=== PATIENT | male | born 1940 | race Caucasian/White ===

== ENCOUNTER 2023-10-08 04:45 | Emergency (ER) | payer MEDICARE, BC, SELFPAY ==
[2023-10-08 04:52] VITALS: BP 160/80; PULSE 68; RESP 16; TEMP 36.7; O2SAT 98; BMI 27.5
[2023-10-08] MEDS: TRANEXAMIC ACID 100 MG/ML INJ 1000 MG TOPICAL (05:06)
[2023-10-08 05:22] LABS: Basophils Percent Auto 0.5 % (0.0-3.0); Eosinophils Percent Auto 5.7 % (0.0-7.0); Hematocrit 38.2 % (37.0-53.0); Hemoglobin* 12.4 gm/dL (13.5-17.5); Immature Granulocytes Pct Auto 0.5 %; Lymphocytes Percent Auto 18.8 % (20-44); Mean Corpuscular HGB Conc 33 gm/dL (32-36); Mean Corpuscular Hemoglobin 30 pg (26-34); Mean Corpuscular Volume 93 fL (80-100); Monocytes Percent Auto 13.2 % (0.0-11.0); Neutrophils Percent Auto 61.3 % (42.0-72.0); Platelet Count* 150 K/uL (140-440); RDW Coefficient of Variation % 13.6 % (11.5-15.5); White Blood Count* 4.41 K/uL (4.50-11.00)
[2023-10-08 05:23] LABS: Slide Review Reflex No
--- NOTE | 2023-10-08 05:25 | ED_ITS ---
HPI - General Adult General Chief complaint: Post Op Complication Stated complaint: Bleeding from mouth post tooth extraction Time Seen by Provider: 10/08/23 05:15 Source: patient and family Mode of arrival: ambulatory Limitations: no limitations History of Present Illness HPI narrative: 83-year-old male presents to the emergency department with his . He had dental extractions performed about 12 hours ago and had some mild oozing initially. Bleeding has increased over the last couple of hours. He reports he has had significant pain is a result of the extractions. He was given a few hydrocodone tablets. He took 1 at approximately 5:00 p.m. after the procedure was completed and the pain became more bothersome. They called the triage line for the oral surgeon and unfortunately did not get a call back. They were advised by a dentist friend to take for ibuprofen and 1 extra-strength Tylenol. They did and initially pain did not improve. He did take another hydrocodone about an hour prior to presentation and reports now that the pain is improving markedly. Their biggest concern is the persistent bleeding. He does have a history of low platelets in the past and a history of CML. His only home medication is the immune modulator for his CML. There have been no recent changes to this. His reports that his platelets had actually been doing better overall and were nearly normal on the last few draws but they have not had anything done recently. No fever, no new trauma, no syncope no breathing problems. No other concerns today. Past medical history most notable for the CML. Denies other acute issues today. ROS is negative for other areas of bleeding, generalized, hematologic, cardiac, skin or respiratory changes today. Related Data Allergies Allergy/AdvReac Type Severity Reaction Status Date / Time lisinopril Allergy Verified 10/08/23 04:57 [facility] Social History Non-prescribed substance use: denies use Exam Const: Vital Signs, click to edit/add: Vital Signs - 24 hr 10/08/23 04:52 Temperature 98.0 F Pulse Rate [Left P ulse Oximeter] 68 Respiratory Rate 16 Blood Pressure [Le ft Upper Arm] 160/80 H Pulse Oximetry 98 Oxygen Delivery Me thod Room Air Documenting provider has reviewed patient's vital signs: yes Other: This seemed have some very mild cognitive impairment, his answers questions for him. With direct questioning, he can follow instructions. HENMT: Common normals: normocephalic Head and scalp: normocephalic Other: Venous appearing bleeding from dental extractions of lower central incisor and canine area on left. Pressure is initially applied. Tongue appears normal, upper teeth appear intact. No signs of recent tongue biting. Posterior pharynx looks normal. Exterior ears and nose appear normal. Eye: Common normals: conjunctivae normal General eye: normal appearance of both eyes Conjunctiva: conjunctiva(e) normal Resp: Common normals: normal respiratory effort Effort & inspection: able to speak in complete sentences Neuro: Other: Observed normal gait ambulating to room 4, moves all extremities easily and symmetrically. Psych: Appearance: grossly normal Attitude: engaged Insight: fair Judgement: judgment good Skin: Common normals: no rashes or lesions noted Narrative: No petechiae, extensive bruising or others sequelae of hematological disorder. General skin exam: no rashes or lesions noted Course Course ED Course: Bleeding noted, persistent. I applied TXA soaked gauze to the wound and then a 2nd pressure gauze on top of this and advised him to bite down. I reinspected after about 3 minutes and see that the bleeding is starting to decrease. Will leave on for another 10 minutes and re-examine. CBC recommended due to his history of low platelets, drawn. Await findings and clinical response. Reevaluation(s) Time of Reevaluation #1: 05:43 Reevaluation #1: Bleeding controlled, gauze removed and monitored. If no repeat bleeding in the next 20 minutes, will discharge with plan of full liquids for the next 12 hours then advancing to very soft foods for 48 hours. Continue with plan for ibuprofen, Tylenol and hydrocodone previously given. CBC reviewed, very reassuring. Results discussed with family and plan of care. They verbalized understanding and agreement Time of Reevaluation #2: 05:59 Reevaluation #2: Update, recheck shows no return of bleeding. Patient will be discharged Vital Signs Vital signs: Initial Vital Signs Temperature 98.0 F 10/08/23 04:52 Temperature Source Temporal Artery Scan 10/08/23 04:52 Pulse Rate 68 10/08/23 04:52 Pulse Rhythm Regular 10/08/23 04:52 Respiratory Rate 16 10/08/23 04:52 Blood Pressure 160/80 H 10/08/23 04:52 Blood Pressure Mean 106 H 10/08/23 04:52 Blood Pressure Position Sitting 10/08/23 04:52 Pulse Oximetry 98 10/08/23 04:52 Oxygen Delivery Method Room Air 10/08/23 04:52 Vital Signs Temperature 98.0 F 10/08/23 04:52 Pulse Rate 68 10/08/23 04:52 Respiratory Rate 16 10/08/23 04:52 Blood Pressure 160/80 H 10/08/23 04:52 Pulse Oximetry 98 10/08/23 04:52 Oxygen Delivery Method Room Air 10/08/23 04:52 Temperature 98.0 F 10/08/23 04:52 Pulse Rate 68 10/08/23 04:52 Respiratory Rate 16 10/08/23 04:52 Blood Pressure 160/80 H 10/08/23 04:52 Pulse Oximetry 98 10/08/23 04:52 Oxygen Delivery Method Room Air 10/08/23 04:52 Medications Administered Medications: Discontinued Medications Generic Name Dose Route Start Last Admin Trade Name Chloe PRN Reason Stop Dose Admin Tranexamic Acid 1,000 mg 10/08/23 04:59 10/08/23 05:06 Tranexamic Acid 100 Mg/Ml Inj TOPICAL 10/08/23 05:00 1,000 mg ONCE ONE Administration Medical Decision Making Lab Data Lab results reviewed: Yes I reviewed the patient's lab results Lab results narrative: Platelets normal. Hemoglobin 12., reassuring. Labs: Lab Results 10/08/23 Range/Units 05:15 WBC 4.41 L (4.50-11.00) K/uL RBC 4.10 L (4.30-5.90) m/uL Hgb 12.4 L (13.5-17.5) gm/dL Hct 38.2 (37.0-53.0) % MCV 93 (80-100) fL MCH 30 (26-34) pg MCHC 33 (32-36) gm/dL RDW Coeff of Romero 13.6 (11.5-15.5) % Plt Count 150 (140-440) K/uL Neut % (Auto) 61.3 (42.0-72.0) % Lymph % (Auto) 18.8 L (20-44) % [place] % (Auto) 13.2 H (0.0-11.0) % Eos % (Auto) 5.7 (0.0-7.0) % Baso % (Auto) 0.5 (0.0-3.0) % Neut # (Auto) 2.70 (1.7-7.0) K/uL Lymph # (Auto) 0.80 L (0.90-2.90) K/uL [place] # (Auto) 0.60 (0.00-0.90) K/UL Eos # (Auto) 0.30 (0.00-0.50) K/uL Baso # (Auto) 0.00 (0.00-0.30) K/uL Abs Immat Gran (auto) 0.00 (0.00-0.30) K/uL Imm/Tot Granulo (auto) 0.5 % Discharge Plan Discharge Clinical Impression: Post-operative hemorrhage Patient Disposition: Home w/ Parent or Adult Condition: Improved Instructions: Dental Laceration (ED) Additional Instructions: I am thankful that the TXA was helpful at controlling your bleeding. Remember not to aggressively spit, the area or attempt to loosen the newly formed blood clot with your tongue. If there is a significant restart of bleeding, roll up the gauze as I had demonstrated and put this over the bleeding area and bite down again with your top teeth. Leave this in place for at least 20 minutes prior to removing. If this does not stop the bleeding or if the bleeding is very severe, please come back to the emergency department. Continue with the ibuprofen, Tylenol and hydrocodone that you were given from your oral surgeon. I would like you to drink liquids only for the next 8 hours, then you may advance to very soft foods for the next 48 hours. Update your oral surgeon if you continue to have bleeding or pain issues. Your blood counts look good today with a hemoglobin of 12.4 and a platelet count of 150. Activity Level: Activity as Tolerated Discharge Diet: Regular Follow Up/Referrals: Provider,Not a Local [Primary Care Provider] - Stand Alone Forms: MyHealth Info Instructions
--- OUTSIDE RECORDS SUMMARY | 2023-10-08 05:30 | XMS_ITS | Encounter Summary ---
Author Name [facility] Organization [facility] Address [address] [place] [address] Care Team Providers Care Belt Maker Helper Name Role Phone KYLEIGH VERDUGO Primary Care Provider Unavailabl e Insurance Providers: All historical and current Section Date Range: From patient's date of to the date document was created. This section includes the names of all active insurance providers for the patient. Insurance Provider Type of Coverage Plan Name Start of Policy Coverage End of Policy Coverage Group Number Member ID Insurance Provider's Telephone Number Policy Bejarano's Name Patient's Relationship to Policy Bejarano [facility] (WNR) MEDICARE (M) BLUE EDICA RE VALUE P Apr 14, 2009 [id number] OSORIO POLLACK PATIENT [facility] (WNR) MEDICARE ADVANTAGE [facility] (WNR) Apr 14, 2009 DO NOT BILL [id number] [facility] OSORIO POLLACK PATIENT [facility] (WNR) MEDICARE ADVANTAGE [facility] (WNR) Apr 14, 2016 [id number] [phone] OSORIO POLLACK PATIENT MEDICARE PART D (WNR) MEDICARE (M) PART D Apr 14, 2021 PART D [id number] [facility] OSORIO POLLACK PATIENT Selected Encounter This section includes the information on record at [place] for the Encounter. Date/Time Encounter Type Encounter Description Reason Pro vider Source Jan 07, 2023 03:53 PM CASE MANAGEMENT ADMIN PAT ACTIVTIES (MASNONCT) ELSA TRAORE Encounter Template Text not used by [place] Plan of Treatment: Future Appointments (+ 6 months) and Future Tests (+/- 45 days) The Plan of Treatment section includes future care activities for the patient from all [place] treatmentfacilities. This section includes future appointments and future orders which are active, pending or scheduled. Future Appointments This section includes appointments that were scheduled to occur 6 months from the date of the Encounter, up to a maximum of 20 appointments. The data comes from all [place] treatment facilities. Appointment Date/Time Appointment Type Appointme nt Facility Name Feb 17, 2023 09:30 AM [facility] Mar 19, 2023 09:20 AM AMBUL[facility]ORY - SURGERY [facility] Apr 21, 2023 12:15 PM [facility] Apr 21, 2023 01:00 PM AMBULATORY - SURGERY [facility] Apr 25, 2023 01:00 PM [facility] - [facility] May 02, 2023 02:00 PM [facility]ORY - MEDICINE [facility] May 06, 2023 10:15 AM [facility] Lab Results: +/- 30 days of the encounter This section includes the Chemistry and Hematology Lab Results on record with [place] for the patient. Radiology Reports and Pathology Reports are provided separately, in subsequent sections. Lab Results This section contains the Chemistry/Hematology Results that were resulted 30 days before or 30 daysafter the date of the Encounter. Date/Time Source Result Type Result - Unit Interpretation Reference Range Comment Dec 31, 2022 10:00 AM [facility] BCR-ABL1 MAJOR QT PCR Specimen Type: BLOOD Comment: Automated Differential Performed Ordering Provider: SAMAN DEMPSEY Report Released Date/Time: September 06, 2022 11:18 AM Reporting Lab: [facility] [id number] Performing Lab: [facility] [id number] BCR-ABL1 MAJOR QT 0.0 <0 BCR-ABL1 INTERP BCR-ABL1 major fusion transcript NOT DETECTED Dec 31, 2022 10:00 AM [facility] HEMOGLOBIN A1C Specimen Type: BLOOD Comment: Values obtained from A1C measurements can vary. For typical A1C assays, a reported value of 7.0 could actually be between 6.7 and 7.3 if measured by a reference method. A reported value of 9.0 could actually be between 8.7 and 9.3. Ref: http://www.ng sp.org/CAPdat a.asp Ordering Provider: NILA CHRISTIAN Report Released Date/Time: Oct 03, 2022 03:42 PM Reporting Lab: [facility] [id number] Performing Lab: [facility] [id number] HEMOGLOBIN A1C 5.4 4.0-6.0 Dec 31, 2022 10:00 AM [facility] COMPREHENSIVE METABOLIC PANEL+MG Specimen Type: PLASMA Comment: Automated Differential Performed Ordering Provider: SAMAN DEMPSEY Report Released Date/Time: September 06, 2022 11:18 AM Reporting Lab: [facility] [id number] Performing Lab: [facility] [id number] CREATININE 1.1 mg/dL 0.7-1.2 UREA NITROGEN 21 mg/dL 8-26 GLUCOSE 108 mg/dL H 70-100 SODIUM 143 mmol/L 136-145 POTASSIUM 4.0 mmol/L 3.5-5.1 CHLORIDE 108 mmol/L H 98-107 CO2 27 mmol/L 22-29 CALCIUM 9.4 mg/dL 8.4-10.2 PROTEIN,TOTAL 7.3 g/dL 6.0-8.3 ALBUMIN 4.3 g/dL 3.5-5.2 BILIRUBIN, TOTAL 0.6 mg/dL 0.2-1.2 MAGNESIUM 2.0 mg/dL 1.6-2.6 ANION GAP 8 mmol/L 5-15 ALKALINE PHOSPHATASE 72 U/L 40-150 ALT/SGPT 9 U/L <55 AST/SGOT 20 U/L <34 .CREAT EGFR(CKD-EPI) 67 >60 Dec 31, 2022 10:00 AM [facility] CBC & DIFF Specimen Type: BLOOD Comment: Automated Differential Performed Ordering Provider: SAMAN DEMPSEY Report Released Date/Time: September 06, 2022 11:18 AM Reporting Lab: [facility] [id number] Performing Lab: [facility] [id number] WBC 4.59 10*3/uL 4.0-11.0 RBC 4.23 10*6/uL L 4.6-6.2 HGB 13.1 g/dL L 13.5-17.9 HCT 39.7 L 41-54 MCV 93.9 fL 80-100 MCH 31.0 pg 27-33 MCHC 33.0 g/dL 32.0-37.5 PLT 157 10*3/uL 150-400 MPV 9.1 fL 7.4-10.4 NEUT 54.5 40.0-80.0 LYMPHS 30.1 15.0-45.0 MONO 11.3 2.0-12.0 EOSINO 2.8 0.0-6.0 BASO 0.9 0.0-2.0 RDW 14.5 11.5-14.5 ABS LYMPH 1.38 10*3/uL 1.0-4.0 ABS MONO 0.52 10*3/uL 0.1-1.0 ABS NEUT 2.50 10*3/uL 2.0-7.7 ABS EOS 0.13 10*3/uL 0-0.5 ABS BASO 0.04 10*3/uL 0-0.2 IG(META,MYELO,P RO) 0.4 ABS IMMATURE GRAN 0.02 10*3/uL 0-0.1 Encounter Notes: All associated encounter notes This section contains the clinical notes associated to the Encounter. Date/Time Encounter Note(s) Provider Source Jan 07, 2023 03:55 PM PRIMARY CARE NOTE: LOCAL TITLE: TRAVELING CARE COORDINATION (TVC) NOTE STANDARD TITLE: PRIMARY CARE NOTE DATE OF NOTE: JAN 07, 2023@15:55 ENTRY DATE: JAN 07, 2023@15:55:43 AUTHOR: ELSA TRAORE EXP COSIGNER: URGENCY: STATUS: COMPLETED New TVC Consult for the following requested lab(s) on 03/24/23 now received: 1. CBC W/diff 2. CMP 3. BCR/ABL Gene rearrangement qnt Called [place] to confirm diagnostic testing while in [place]. [place] will report in person to the [facility] (location known to [place]) ON 03/24/23 to have ordered testing completed. Patient affirms understanding of above details and agrees to follow up with clinic accordingly. Also provided this TVC's contact information for any questions/concerns that should arise while patient is residing in [place]. /anoop/ ISAAC VU,RN-BC REGISTERED NURSE Signed: 01/07/2023 15:59 [address] [facility]
--- OUTSIDE RECORDS SUMMARY | 2023-10-08 05:30 | XMS_ITS | Encounter Summary ---
Author Name [facility] of [facility] Organization [facility] Address [address] [place] [address] Care Team Providers Care Return To Service Inspector Name Role Phone KYLEIGH VERDUGO Primary Care [...] Bejarano's Name Patient's Relationship to Policy Bejarano [facility] (WNR) MEDICARE (M) BLUE EDICA RE VALUE P Apr 14, 2009 [id number] [phone] OSORIO POLLACK PATIENT [facility] (WNR) MEDICARE ADVANTAGE [facility] (WNR) Apr 14, 2009 DO NOT BILL [id number] [facility] OSORIO POLLACK PATIENT [facility] (WNR) MEDICARE ADVANTAGE [facility] (WNR) Apr 14, 2016 [id number] [phone] OSORIO POLLACK PATIENT MEDICARE PART D (WNR) MEDICARE (M) PART D Apr 14, 2021 PART D [id number] [facility] OSORIO POLLACK PATIENT Selected Encounter This section includes the information on record at [place] for the Encounter. Date/Time Encounter Type Encounter Description Reason Provider Source Jan 30, 2023 04:57 PM TARGETED CASE MANAGEMENT ADMIN PAT ACTIVTIES (MASNONCT) JENNY RAYA [facility] Encounter Template Text not used by [place] Plan of Treatment: Future Appointments (+ 6 months) and Future Tests (+/- 45 days) The Plan of Treatment section includes future care activities for the patient from all [place] treatmentfacilities. This section includes future appointments and future orders which are active, pending or scheduled. Future Appointments This section includes appointments that were scheduled to occur 6 months from the date of the Encounter, up to a maximum of 20 appointments. The data comes from all [place] treatment facilities. Appointment Date/Time Appointment Type Appointme nt Facility Name Feb 17, 2023 09:30 AM [facility] Mar 19, 2023 09:20 AM [facility] Apr 21, 2023 12:15 PM [facility] Apr 21, 2023 01:00 PM [facility] Apr 25, 2023 01:00 PM AMBULATORY - RE[facility]AB [facility] [place] [facility] May 02, 2023 02:00 PM [facility] May 06, 2023 10:15 AM [facility] Encounter Notes: All associated encounter notes This section contains the clinical notes associated to the Encounter. Date/Time Encounter Note(s) Provider Source Jan 30, 2023 04:57 PM CONSULT: LOCAL TITLE: TRAVELING CARE COORDINATION (TVC) CONSULT STANDARD TITLE: CONSULT DATE OF NOTE: JAN 30, 2023@16:57 ENTRY DATE: JAN 30, 2023@16:57:42 AUTHOR: JENNY RAYA EXP COSIGNER: URGENCY: STATUS: COMPLETED TVCC Update Lab orders entered Lab Test: CBC CMP BCR/ ABL Gene rearrangment qnt Collection Date/Time: 03/24/23 notified on: 01/07/23 Results will be alerted on this consult when available. Preferred [place] Provider to manage results. [facility] care coordination completed /anoop/ JENNY RAYA,MSN,RN REGISTERED NURSE Signed: 01/30/2023 16:59 JENNY RAYA [facility]
--- OUTSIDE RECORDS SUMMARY | 2023-10-08 05:30 | XMS_ITS ---
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) Apr 14, 2009 DO NOT BILL [id number] [facility] [phone] OSORIO POLLACK PATIENT [facility] (WNR) MEDICARE ADVANTAGE [facility] (WN) Apr 14, 2016 [id number] [phone] OSORIO POLLACK PATIENT MEDICARE PART D (WN) MEDICARE (M) PART D Apr 14, 2021 PART D [id number] OSORIO POLLACK PATIENT Selected Encounter This section includes the information on record at MD for the Encounter. Date/Time Encounter Type Encounter Description Reason Provider Source Oct 16, 2022 01:00 PM OFFICE O/P NEW LOW 30-44 MIN OPTOMETRY ICD-10-CM 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, right eye, with inact chrdl neovas ANTON,PATRICI A M IHE Encounter Template Text not used by [facility] Assessments - Encounter Diagnoses This section includes the primary and secondary diagnoses documented for the Encounter. Date/Time Primary/Secondary Diagnosis Diagnosis Name Provider Source Oct 16, 2022 04:07 PM PRIMARY Exdtve age-rel mclr degn, right eye, with inact chrdl neovas ANTON,CATIE IA M [facility] Oct 16, 2022 04:07 PM SECONDARY Combined forms of age-related cataract, bilateral ANTON,CATIE IA [facility] Oct 16, 2022 04:07 PM SECONDARY Nexdtve age-related mclr degn, left eye, early dry stage ANTON,CATIE IA [facility] Oct 16, 2022 04:07 PM SECONDARY Presbyopia ANTON,CATIE IA [facility] Oct 16, 2022 04:07 PM SECONDARY Vitreous degeneration, bilateral ANTON,CATIE IA [facility] Plan of Treatment: Future Appointments (+ 6 months) and Future Tests (+/- 45 days) The Plan of Treatment section includes future care activities for the patient from all MD treatmentfacilities. This section includes future appointments and future orders which are active, pending or scheduled. Future Appointments This section includes appointments that were scheduled to occur 6 months from the date of the Encounter, up to a maximum of 20 appointments. The data comes from all MD treatment facilities. Appointment Date/Time Appointment Type Appointme nt Facility Name Nov 05, 2022 10:30 AM AMBULATORY - MEDICINE [facility] Nov 22, 2022 12:30 PM AMBULATORY - SURGERY [facility] Nov 26, 2022 12:30 PM AMBULATORY - SURGERY [facility] Dec 11, 2022 10:00 AM [facility] Dec 31, 2022 10:00 AM [facility] Jan 07, 2023 01:00 PM AMBULATORY - MEDICINE [facility] Feb 17, 2023 09:30 AM AMBULATORY - MEDICINE [facility] Mar 19, 2023 09:20 AM AMBULATORY - SURGERY [facility] Active, Pending, and Scheduled Orders This section includes a listing of several types of active, pending, and scheduled orders, including clinic medications orders, diagnostic test orders, procedure orders and consult orders; where the start date of the order is 45 days before the date of the Encounter or 45 days after the date of theEncounter. The data comes from all [facility] facilities. Test Date/Time Test Type Test Details Facility Name Sep 27, 2022 12:00 AM Laboratory - Chemi stry Order TSH W/REFLEX TO FREE T4 PLASMA [facility] Sep 27, 2022 12:00 AM Laboratory - Chemi stry Order LIPID PANEL,NON-FASTING PLASMA [facility] Sep 27, 2022 12:00 AM Laboratory - Chemi stry Order CBC BLOOD [facility] Sep 27, 2022 12:00 AM Laboratory - Chemi stry Order CREATININE(INCLUDES EGFR) PLASMA [facility] Sep 27, 2022 12:00 AM Laboratory - Chemi stry Order ELECTROLYTES/ANION GAP PLASMA [facility] Sep 27, 2022 12:00 AM Laboratory - Chemi stry Order GLUCOSE PLASMA [facility] Sep 27, 2022 12:00 AM Laboratory - Chemi stry Order HEMOGLOBIN A1C BLOOD [facility] Sep 27, 2022 12:00 AM Laboratory - Chemi stry Order ALT/SGPT [facility]AS[facility] Sep 27, 2022 12:00 AM Laboratory - Chemi stry Order AST/SGOT [facility]AS[facility] Encounter Notes: All associated encounter notes This section contains the clinical notes associated to the Encounter. Date/Time Encounter Note(s) Provider Source Oct 16, 2022 01:56 PM OPHTHALMOLOGY TECH NICIAN NOTE: LOCAL TITLE: CADD DRAFTER NOTE STANDARD TITLE: CADD DRAFTER NOTE DATE OF NOTE: OCT 16, 2022@13:56 ENTRY DATE: OCT 16, 2022@13:56:14 AUTHOR: ISABEL CHEN EXP COSIGNER: URGENCY: STATUS: COMPLETED RNFL oct done and up-loaded for review /es/ ISABEL CHEN OPHTHALMOLOGY [facility] [employer] Signed: 10/16/2022 13:56 ISABEL CHEN [facility] Oct 16, 2022 12:37 PM OPHTHALMOLOGY TECH NICIAN NOTE: LOCAL TITLE: CADD DRAFTER NOTE STANDARD TITLE: CADD DRAFTER NOTE DATE OF NOTE: OCT 16, 2022@12:37 ENTRY DATE: OCT 16, 2022@12:37:31 AUTHOR: ISABEL CHEN EXP COSIGNER: URGENCY: STATUS: COMPLETED Eye Start Exam Patient: OSORIO POLLACK Sex: MALE SSN: [id number] Birthdate: [birth year] Chief complaint: patient states here for my exam and to check if I need a glasses prescription History of Present Illness: Location: Intensity: Duration: Active problems - Computerized Problem List is the source for the followin. History of immune thrombocytopenia (SNOMED CT 710955078) 2. Type 2 diabetes mellitus 3. Skin cancer (SNOMED CT 373427902) - H/O SCCA in 2010. 4. Hearing loss (SNOMED CT 69084415) 5. Osteoarthritis - S/P left knee arthroscopy in 1994. - S/P right shoulder decompression in 2002. 6. Trigger finger (acquired) 7. Benign prostatic hypertrophy with outflow obstruction 8. Chronic myeloid leukemia (SNOMED CT 49123717) 9. Chronic low back pain 10. Hyperlipidemia 11. Solitary nodule of lung 12. Insomnia 13. ECG: ventricular ectopics 14. Proteinuria 15. Inguinal hernia 16. Monoclonal paraproteinemia 17. Pain of bilateral knee regions Surgeries: DEC 25, 2018 Proc: Laparoscopic Left inguinal hernia repair Full Exam Eye Medications Patient denies eye medication use. Allergies: FLUCONAZOLE (August 29, 2016) LISINOPRIL (Nov 30, 2018) No new Allergies. Past Medical History: Cancer Past eye history: Macular degeneration: Past eye surgeries: Denies all Social History: Alcohol use - Yes Tobacco use - No Family History: Eye disease: mom mac degen Cancer Heart disease or stroke: Last refraction: Vision: OD:SC(without glasses) OD: 20/125 Pinhole: 20/NI Near: 20/ Vision: OS:CC(with glasses) 0S: 20/30 Pinhole: 20/25+3 Near: 20/ whears +3.25 cheaters Current glasses: OD: X Prism: OS: X Prism: Add: Confrontational Ibrahim: Full to finger counting: Right: Yes Left: Yes Extra Ocular Movement: Normal Pupils: Right: Round Left: Round Size: Right: 3 Left: 3 React to light: Right: Yes Left: Yes Afferent pupil defect: Right:No Grade: Left: No Grade: Note: Intra-ocular pressure (IOP): OD: 15 OS: 13 iCare Dilation: mydriacyl 1% and neosynephrine OU Oct@12:53 /anoop/ ISABEL CHEN OPHTHALMOLOGY HEALTH HANDIC[facility] [employer] [facility] Signed: 10/16/2022 12:54 ISABEL CHEN [facility] Oct 16, 2022 07:47 AM OPTOMETRY NOTE: LOCAL TITLE: OPTOMETRY CLINIC NOTE STANDARD TITLE: OPTOMETRY NOTE DATE OF NOTE: OCT 16, 2022@07:47 ENTRY DATE: OCT 16, 2022@07:47:27 AUTHOR: RAMONA ANTON COSIGNER: URGENCY: STATUS: COMPLETED Reviewed and agree with tech notes, add: Chief complaint: patient states here for my exam and to check if I need a glasses prescription Patient sees [facility] Specialist in [place], [place]: saw him ~ 1 month ago: had anti-Vegf injection OD per patient at that visit. Also sees a Retina Specialist when he is living in [place]. Patient takes AREDS 2 eye vitamins. Patient knows that he has a cataract OD > OS. HPI:mild blur at distance and at near OU, gradual Patient denies any sudden loss of vision, dimming or blackout of vision, blindness. Patient denies any pain, double vision. Patient denies any floaters, flashing lights, curtain or veil over vision, shadows in vision. Patient denies any redness, pain, discharge. Eye meds: see tech note. PATTIE:02/2019 POHx: see tech note. PMHx: see tech note. Last Hgb A1C: 5.5% Pt oriented and alert x 3 Mood and affect normal Cover test cc distance: ortho OU. Manifest Refraction/Final Srx: OD:planon DS 20/125-1 OS:plano -[id number] 20/25+2 no prism ADD: +3.00 IOP: 15 OD, 13 OS per tech (Icare) Diagnostic meds: per tech. BIOMICROSCOPY: (OU unless specified) Adnexa/Orbit- clear Eyelids/Lashes- clear Conjuctiva- clear Sclera- white and quiet Cornea- all layers clear Angle- 4VH AC- D and Q Iris- clear, (-) rubeosis Lens- 2+ NS OU with 2.5+ PSC OD. Dilated eye exam: yes OPHTHALMOSCOPY (OU unless specified) Cup/Disc- OD: 0.4/0.4 (H/V), OS: 0.4/0.4 (H/V) Neuroretinal rim tissue distinct and well perfused OU. OU: no pallor, no notch, no edema, no DH, no NVD. Color- no pallor Margins- distinct Vessels- normal caliber; OU: no emboli, no plaque, no occlusion, no retinopathy, no NVE, no VB. Macula- OD: large area of GA with fibrosis with IRF cysts. No new SRNVM, no SRF. OS: flat, few small drusen. OU: no hemes, no exudate, no CWS. Vitreous- PVD OU. ; OU: no VH, no vitreous cell, no vitreous pigment. Periphery- clear flat and intact 360 degrees; OU: no RT/ no RD, no masses, no retinal break, no retinopathy, (-) hemes. Additional testing today: ===== Mac OCT OD: Large area of GA with fibrosis with few small IRF cysts without new SRNVM. No SRF. OS: Rare RPE migration with rare drusenoid. no SRNVM, no IRF, no SRF. Normal fovea contour. ==== Impression/Plan: 1. 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 PER PATIENT, HE IS FOLLOWED FOR THIS WITH A RETINA SPECIALIST IN [place], [place]: LAST SAW HIM ~1 MONTH AGO FOR ANTI-VEGF INJECTION. WILL FOLLOW UP WITH HIM AGAIN IN A COUPLE OF MONTHS. ALSO SEES A RETINA SPECIALIST WHEN HE IS IN [place]. HE IS CURRENTLY TAKING AREDS 2 PRESERVISION EYE SUPPLEMENT. CONTIINUE CARE SCHEDULED WITH RETINA SPECIALISTS IN [place], [place] AND [place], SOONER IF ANY VISION CHANGES. CONTINUE DIET RICH IN GREEN LEAFY VEGGIES AND SOURCES OF OMEGA 3'S, SUNGLASS PROTECTION, NO SMOKING, WEIGHT CONTROL, BP CONTROL. CONTINUE HAG PREVIOUSLY RECOMMENDED BY HIS RETINA SPECIALIST(S). Previous plan from 2019: - New diagnosis WET OD (01/22/2019) - Per patient, followed at [facility] Dr. Agustin, no mention of AMD on prior visits and yearly OCT - Non smoker - Initial presentation: [facility] 20/100, OCT 01/22/2019 with significant SRF and moderate serous PED, several drusenoid PED OD. 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 Dry AMD OS - Exam, few small drusen superiorly - OCT no IRF/SRF, few drusenoid. CONTINUE PLAN ABOVE. 3. Combined cataract OD, NS OS, mildly visually significant OU. Discussed guarded prognosis of improving vision with cataract removal OD due to #1 above: patient opts to monitor for now OU. 4. Refractive error with Presbypopia OU. Released updated glasses Rx today: polycarb, FTW recommended due to #1. Monitor yearly with VTDMRx, sooner if any changes. 5. PVD OU Discussed risk of RT/RD and symptoms of RT/RD: RTC immediately if any loss of vision shadows in vision, floaters, flashing lights, curtain or viel over vision. Monitor yearly with VTDMRx, sooner if any changes. Reviewed exam findings OU including PLAN with patient. Educated patient about PLAN including symptoms of RT/ RD: RTC immediately if any loss of vision, shadows in vision, floaters, flashing lights, curtain or veil over vision and/or any other changes with either and/or both eyes. RTC: as scheduled with Retina Specialist in [place], [place] and in [place] when living there. RTC : 1 year for VTDMRx, sooner if any changes. Is the patient legally blind? 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
--- OUTSIDE RECORDS SUMMARY | 2023-10-08 05:30 | XMS_ITS | Encounter Summary ---
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 (R) MEDICARE (M) BLUE EDICA RE VALUE P Apr 14, 2009 [id number] [phone] [facility] (WNR) MEDICARE ADVANTAGE [facility] ([facility]) Apr 14, 2009 DO NOT BILL [id number] [facility] OSORIO POLLACK PATIENT [facility] (WNR) MEDICARE ADVANTAGE [facility] (WN) Apr 14, 2016 [id number] [phone] OSORIO POLLACK PATIENT MEDICARE PART D (WN) MEDICARE (M) PART D Apr 14, 2021 PART D [id number] [facility] OSORIO POLLACK PATIENT Selected Encounter This section includes the information on record at [facility] for the Encounter. Date/Time Encounter Type Encounter Description Reason Provider Source Jan 07, 2023 01:00 PM OFFICE O/P EST MOD 30-39 MIN ONCOLOGY/TUMOR ICD-10-CM 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, BCR/ABL-positi ve, not achieve SHAYLEE Mccormick IHTrevon Encounter Template Text not used by [facility] Assessments - Encounter Diagnoses This section includes the primary and secondary diagnoses documented for the Encounter. Date/Time Primary/Secondary Diagnosis Diagnosis Name Provider Source Jan 07, 2023 01:42 PM PRIMARY Chronic myeloid leuk, BCR/ABL-positiv e, not achieve SHAYLEE Mccormick [facility] Plan of Treatment: Future Appointments (+ 6 months) and Future Tests (+/- 45 days) The Plan of Treatment section includes future care activities for the patient from all [facility] treatmentfacilities. This section includes future appointments and future orders which are active, pending or scheduled. Future Appointments This section includes appointments that were scheduled to occur 6 months from the date of the Encounter, up to a maximum of 20 appointments. The data comes from all [facility] treatment facilities. Appointment Date/Time Appointment Type Appointme nt Facility Name Feb 17, 2023 09:30 AM AMBULATORY - MEDICINE [facility] Mar 19, 2023 09:20 AM AMBULATORY - SURGERY [facility] Apr 21, 2023 12:15 PM AMBULATORY - MEDICINE [facility] Apr 21, 2023 01:00 PM AMBULATORY - SURGERY [facility] Apr 25, 2023 01:00 PM AMBULATORY - REHAB MEDICIN [facility] May 02, 2023 02:00 PM AMBULATORY - MEDICINE [facility] May 06, 2023 10:15 AM AMBULATORY - MEDICINE [facility] Lab Results: +/- 30 days of the encounter This section includes the Chemistry and Hematology Lab Results on record with [facility] for the patient. Radiology Reports and Pathology Reports are provided separately, in subsequent sections. Lab Results This section contains the Chemistry/Hematology Results that were resulted 30 days before or 30 daysafter the date of the Encounter. Date/Time Source Result Type Result - Unit Interpretation Reference Range Comment Dec 31, 2022 10:00 AM [facility] BCR-ABL1 MAJOR QT PCR Specimen Type: BLOOD Comment: Automated Differential Performed Ordering Provider: SHAYLEE MATT Report Released Date/Time: September 06, 2022 11:18 AM Reporting Lab: [facility] [id number] Performing Lab: [facility] [id number] BCR-ABL1 MAJOR QT 0.0 <0 BCR-ABL1 INTERP BCR-ABL1 major fusion transcript NOT DETECTED Dec 31, 2022 10:00 AM [facility] HEMOGLOBIN A1C Specimen Type: BLOOD [...] Oct 03, 2022 03:42 PM Reporting Lab: [facility] [id number] Performing Lab: [facility] [id number] HEMOGLOBIN A1C 5.4 4.0-6.0 Dec 31, 2022 10:00 AM [facility] COMPREHENSIVE METABOLIC PANEL+MG Specimen Type: PLASMA Comment: Automated Differential Performed Ordering Provider: SHAYLEE MATT Report Released Date/Time: September 06, 2022 11:18 AM Reporting Lab: [facility] [id number] Performing Lab: [facility] [id number] CREATININE 1.1 mg/dL 0.7-1.2 UREA NITROGEN 21 [...] 67 >60 Dec 31, 2022 10:00 AM [facility] CBC & DIFF Specimen Type: BLOOD Comment: Automated Differential Performed Ordering Provider: SHAYLEE MATT Report Released Date/Time: September 06, 2022 11:18 AM Reporting Lab: [facility] [id number] Performing Lab: [facility] [id number] WBC 4.59 10*3/uL 4.0-11.0 RBC 4.23 10*6/uL [...] 0.4 ABS IMMATURE GRAN 0.02 10*3/uL 0-0.1 Vital Signs: All taken on the encounter date This section contains inpatient and outpatient Vital Signs collected on the date of the Encounter. Date/Time Temperature Pulse Blood Pressure Respiratory Rate SP02 Pain Height Weight Body Mass Index Source Jan 07, 2023 01:05 PM 98.2 F 50 /min 164/81 mm[Hg] 16 /min 98 % 0 213.1 lb 28 [facility] Social History: Smoking Status (Most current) and Tobacco Use (All prior to encounter date) This section includes the most current, and the historical, smoking and tobacco- related health factors from the [facility] the [facility]. Current Smoking Status This section includes the most current smoking, or tobacco-related health factor, from the [facility] where the Encounter took place. Date/Time Current Smoking Status Comment Facil ity Oct 03, 2022 09:00 AM VA-TOBACCO FORMER USER [facility] Tobacco Use History This section includes a history of the smoking, or tobacco-related health factors, that were collected on or before the date of the Encounter. The data comes from the [facility] where the Encounter took place. Date/Time Smoking Status/Tobacco Use Comment F acility Oct 03, 2022 09:00 AM VA-TOBACCO QUIT 15 YRS OR MORE [facility] Sep 27, 2021 02:30 PM VA-TOBACCO FORMER USER [facility] Sep 27, 2021 02:30 PM VA-TOBACCO QUIT 15 YRS OR MORE [facility] Dec 09, 2019 12:30 PM VA-TOBACCO FORMER USER [facility] Dec 09, 2019 12:30 PM VA-TOBACCO QUIT 15 YRS OR MORE [facility] Oct 06, 2018 02:12 PM VA-TOBACCO FORMER USER [facility] Oct 06, 2018 02:12 PM VA-TOBACCO QUIT 15 YRS OR MORE [facility] Sep 17, 2017 02:55 PM FORMER TOBACCO USER 7Y OR GREATE R [facility] August 29, 2016 01:07 PM FORMER TOBACCO USER 7Y OR GREATE R [facility] Nov 06, 2015 01:10 PM FORMER TOBACCO USER 7Y OR GREATE R [facility] August 19, 2014 09:31 AM FORMER TOBACCO USER 7Y OR GREATE R [facility] August 31, 2013 08:06 AM FORMER TOBACCO USER 7Y OR GREATE R [facility] Jul 02, 2006 10:49 AM FORMER TOBACCO USER 7Y OR GREATE R [facility] Encounter Notes: All associated encounter notes This section contains the clinical notes associated to the Encounter. Date/Time Encounter Note(s) Provider Source Jan 07, 2023 01:19 PM HEMATOLOGY AND ONCOLOGY ATTENDING NOTE: LOCAL TITLE: HEME/ONC CLINIC NOTE STANDARD TITLE: HEMATOLOGY AND ONCOLOGY ATTENDING NOTE DATE OF NOTE: JAN 07, 2023@13:19 ENTRY DATE: JAN 07, 2023@13:19:43 AUTHOR: SHAYLEE MATT COSIGNER: URGENCY: STATUS: COMPLETED Date of service: 01/07/2023 Reason for visit (CC): CML, chronic phase Treatment/Plan: Dasatinib HPI: PT is here today with his . He is doing very well. he stays busy and active. he continues to tolerate the desatinib well. denies N/v. denies night sweats. bowels working well. no new concerns on todays visit. leaves for [place] 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 Started with imatinib 09/2013 at varying doses (neutropenia). He was switched to Dasatinib while in [place] on 06/08/15 due to rising bcr/abl. [place]. Since started dasatinib, his BCR/ABL steadily declined, <0.002 consistent with MR4. Since he was in MR4 for >3yrs, Dasatinib was stopped and he was on observation until 10/2019 when he was noted to have rising BCR. Dasatinib was restarted 11/18/2019 with noted decline in BCR. BCR/ABL ------- 12/21/14: 0.38% 04/18/15: 2.258% 04/29/15: 0.22% 08/26/17: 0.006% 12/17/17 0.012 11/12/18 <0.0022 02/10/2019 0.0035.--- dasatinib stopped 03/15/19 0.022 04/21/19 0.213 05/20/19 0.254 06/21/2019 0.085 09/22/19 0.17 10/20/19 0.17 11/18/19 Restart on dasatinib 11/2020- 08/2020- BCR/ABL- 0.000 08/30/20- BCR/ABL <0.003 12/11/21- BCR/ABL <0.003 -01/2022- pt stopped his desatinib- forgot to fill, so restarted end of 02/11/22- BCR/ABL 0.007- continue on desatinib 09/06/22- bcr/abl undetectable- to present PAST MEDICAL HISTORY: Active problems - Computerized Problem List is the source for the followin. History of immune thrombocytopenia (SNOMED CT 962610838) 2. Type 2 diabetes mellitus 3. Skin cancer (SNOMED CT 475520567) - H/O SCCA in 2010. 4. Hearing loss (SNOMED CT 39447689) 5. Osteoarthritis - S/P left knee arthroscopy in 1994. - S/P right shoulder decompression in 2002. 6. Trigger finger (acquired) 7. Benign prostatic hypertrophy with outflow obstruction 8. Chronic myeloid leukemia (SNOMED CT 67878478) 9. Chronic low back pain 10. Hyperlipidemia 11. Solitary nodule of lung 12. Insomnia 13. ECG: ventricular ectopics 14. Proteinuria 15. Inguinal hernia 16. Monoclonal paraproteinemia 17. Pain of bilateral knee regions ALLERGIES: FLUCONAZOLE (August 29, 2016) LISINOPRIL (Nov 30, 2018) Vital signs: weight:213.1 lb [96.66 kg] (01/07/2023 13:05) BP: 164/81 (01/07/2023 13:05) P:50 (01/07/2023 13:05) RR:16 (01/07/2023 13:05) Temp:98.2 F [36.8 C] (01/07/2023 13:05) BSA: 2.23 O2 sat: 98% (01/07/2023 13:05) PHYSICAL EXAM: General: well appearing, in no acute distress LAD: no cervical or clavicular lymphadenopathy Resp: CTA bilat, no rales or wheezes, Cardio: RRR no murmurs, no LE edema Abd: soft-nontender, non-distended, No HSM Neuro: AO X3 RADIOLOGY: radiology obtained by heme/onc was reviewed with the patient. MEDS: All pertinent heme/onc meds reviewed and updated with the patient LABS: The following labs were obtained by [facility] and the results were reviewed with the patient SLT - Lab Tests Selected Collection DT Specimen Test Name Result Units Ref Range 12/31/2022 10:00 BLOOD !! WBC 4.59 K/cmm 4.0 - 11.0 12/31/2022 10:00 BLOOD !! HGB 13.1 L g/dL 13.5 - 17.9 12/31/2022 10:00 BLOOD !! HCT 39.7 L % 41 - 54 12/31/2022 10:00 BLOOD !! MCV 93.9 fL 80 - 100 12/31/2022 10:00 BLOOD !! PLT 157 K/cmm 150 - 400 12/31/2022 10:00 BLOOD !! ABS LYMPH 1.38 K/cmm 1.0 - 4.0 12/31/2022 10:00 BLOOD !! ABS NEUT 2.50 K/cmm 2.0 - 7.7 CMP (calcium, creatinine, BUN, glucose, electrolytes, albumin, total bilirubin, alkaline phosphatase, total protein, ALT, AST) Magnesium Serum phosphorus, LDH Any abnormal lab was discussed with patient. ASSESMENT/PLAN: 82 yr/M with CML (chronic phase), on Dasatinib as second line treatment with hematologic and excellent molecular response to therapy. He was off dasatinib for nearly 1 year before his BCR started to increase and decision was made to restart dasatinib in 11/2019. Recent BCR/ABL is undetectable. Other labs look good. - Continue Dasatinib 50 mg/day. - RTC in 3 months via [facility] as will be in [place] - will place traveling vet consult for labs to be done # MGUS- IgM kappa paraprotein- last check was 0.19 -stable - will recheck qother visit- q6mo Performance Status (ECOG):0 Education Patient on Treatment Plan:Patient indicates readiness to learn, verbalizes understanding, agreement and satisfaction with the treatment plan. Denies further questions. 30minutes spent in direct patient care, reviewing chart, reviewing labs and imaging and documentation. /anoop/ Shaylee Matt PA-C Physician Leather Roller Signed: 01/07/2023 13:42 SHAYLEE MATT [facility] Jan 07, 2023 01:08 PM INTERNAL MEDICINE OUTPATIENT NOTE: LOCAL TITLE: MEDICINE CLINIC NURSING NOTE STANDARD TITLE: INTERNAL MEDICINE OUTPATIENT NOTE DATE OF NOTE: JAN 07, 2023@13:08 ENTRY DATE: JAN 07, 2023@13:08:12 AUTHOR: MCKENZIE THORNTON COSIGNER: URGENCY: STATUS: COMPLETED TYPE OF VISIT: Appointment Check In Type of appointment: In-person appointment REASON FOR VISIT: scheduled appointment ALLERGIES: FLUCONAZOLE (August 29, 2016) LISINOPRIL (Nov 30, 2018) VITAL SIGNS: Blood Pressure: 164/81 (01/07/2023 13:05) 2nd Blood Pressure: 152/82 Patient denies: SOB, headache, vision changes, dizziness, lightheadedness Pulse: 50 (01/07/2023 13:05) Respiration: 16 (01/07/2023 13:05) Temperature: 98.2 F [36.8 C] (01/07/2023 13:05) Weight: 213.1 lb [96.66 kg] (01/07/2023 13:05) Height: 73 in [185.4 cm] (10/03/2022 08:56) BMI: 28.2 O2 Sat: 98% (01/07/2023 13:05) Pain: 0 (01/07/2023 13:05) PAIN SCREEN: Patient is not having significant pain that they wish to discuss with their provider today. MEDICATION Active Outpatient Medications (including Supplies): DASATINIB 50MG TAB TAKE ONE TABLET BY MOUTH EVERY DAY - ACTIVE AVOID GRAPEFRUIT PRODUCTS. DO NOT CRUSH OR CUT. *SWALLOW WHOLE* FLUOCINOLONE ACETONIDE 0.01% TOP SOLN APPLY TO SCALP AND ACTIVE EARS TOPICALLY TWICE A DAY NEEDED FOR PRURITIS EXTERNAL USE ONLY KETOCONAZOLE 2% SHAMPOO SHAMPOO SCALP TOPICALLY 3 TIMES ACTIVE WEEKLY SEBORRHEIC DERMATITIS *LATHER FOR 5 MINUTES THEN RINSE* LOPERAMIDE HCL 2MG CAP TAKE TWO CAPSULES BY MOUTH ONCE AT HOLD ONSET OF DIARRHEA THEN ONE CAPSULE EVERY TWO HOURS UNTIL NO DIARRHEA FOR 12 HOURS TAKE TWO CAPSULES AT ONSET OF DIARRHEA THEN ONE CAPSULE EVERY TWO HOURS UNTIL NO DIARRHEA FOR 12 HOURS. PROCHLORPERAZINE MALEATE 10MG TAB TAKE ONE TABLET BY MOUTH HOLD FOUR TIMES A DAY NEEDED FOR NAUSEA AND VOMITING. DO NOT TAKE MORE THAN 40 MG PER DAY. Over the Counter/Herbal Medications: The patient denies taking any outside medications or herbals. /anoop/ MIREYA THORNTON LPN Signed: 01/07/2023 13:10 MCKENZIE THORNTON [facility]
--- OUTSIDE RECORDS SUMMARY | 2023-10-08 05:30 | XMS_ITS | Continuity of Care Document ---
Author Name [facility] Organization [facility] Care Team Providers Care Knot Picker Cloth Name Role Phone [facility] Unavailable Unavailable Problems Combined list of problems from Department of Defense and Veterans Affairs facilities. It does not include entries that were removed or entered in error. 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 Diabetes Mellitus Type 2 (SCT 56241027) Active Condition Jul 03, 2022 Entered By: MERRITT PLAZA Comment: Managed by lifestyle (diet/exercise) [facility] ECG: ventricular ectopics Active Condition [facility] Hearing loss (SNOMED CT 78742311) Active Condition [facility] History of immune thrombocytopenia Active Condition [facility] History of immune thrombocytopenia (SNOMED CT 918933081) Active Condition [facility] Hyperlipidemia Active Condition [facility] Inguinal hernia Active Condition [facility] Insomnia Active Condition [facility] Monoclonal paraproteinemia Active Condition [facility] Monoclonal paraproteinemia [facility] Osteoarthritis Active Condition August Entered By: GEO LOZA Comment: S/P left knee arthroscopy in 1994.August 19, 2014 Entered By: GEO LOZA Comment: S/P right shoulder decompression in 2002. [facility] Pain of bilateral knee regions Active Condition [facility] Proteinuria Active Condition [place] [facility] Skin cancer (SNOMED CT 062419794) Active Condition Apr 06, 2012 Entered By: GEO LOZA Comment: H/O [facility]A in 2010. [facility] Solitary nodule of lung Active Condition [facility] Trigger finger (acquired) (ICD-9-CM 727.03) [facility] Type 2 diabetes mellitus Active Condition [facility] Acute bronchitis (ICD-9-CM 466.0) Inactive Condition 05/01/2022 [facility] Acute pharyngitis Inactive Condition 07/03/2022 [facility] Closed fracture of phalanx of toe Inactive Condition 05/01/2022 [facility] Contusion of toe Inactive Condition 05/01/2022 [facility] Diagnosis: ICD-10-CM I10 Essential (primary) hypertension Active Diagnosis [facility] Diagnosis: ICD-10-CM N40.1 Benign prostatic hyperplasia with lower urinary tract symp Active Diagnosis [facility] Diagnosis: ICD-10-CM Z71.9 Counseling, unspecified Active Diagnosis [facility] Diagnosis: ICD-10-CM 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, BCR/ABL-positive, 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 Active Diagnosis [facility] Diagnosis: ICD-10-CM M13.869 Other specified arthritis, unspecified knee Active Diagnosis [facility] Diagnosis: ICD-10-CM M17.0 Bilateral primary osteoarthritis of knee Active Diagnosis [facility] Diagnosis: ICD-10-CM M54.50 Low back pain, unspecified Active Diagnosis [facility] Diagnosis: ICD-10-CM Z71.89 Other specified counseling Active Diagnosis [facility] Diagnosis: ICD-10-CM Z23 Encounter for immunization Active Diagnosis [facility] Diagnosis: ICD-10-CM Z46.1 Encounter for fitting and adjustment of hearing aid Active Diagnosis [facility] Diagnosis: ICD-10-CM Z02.89 Encounter for other administrative examinations Active Diagnosis [facility] Diagnosis: ICD-10-CM 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, right eye, with inact chrdl neovas Active Diagnosis [facility] Diagnosis: ICD-10-CM E11.9 Type 2 diabetes mellitus without complications Active Diagnosis [facility] Diagnosis: ICD-10-CM Z01.118 Encntr for exam of ears and hearing w oth abnormal findings Active Diagnosis [facility] Diagnosis: ICD-10-CM L21.9 Seborrheic dermatitis, unspecified Active Diagnosis [facility] Diagnosis: ICD-10-CM L57.0 Actinic keratosis Active Diagnosis [facility] Diagnosis: ICD-10-CM M25.561 Pain in right knee Active Diagnosis [facility] Diagnosis: ICD-10-CM M25.562 Pain in left knee Active Diagnosis [facility] Diagnosis: ICD-10-CM J06.9 Acute upper respiratory infection, unspecified Active Diagnosis [facility] Medications Combined list of outpatient medications from Department of Defense and Veterans Affairs facilities.Medications provided include 1) outpatient medications from the last 15 months, and 2) patient-reported medications. Medication Details Route Status Patient Instructions Prescription Expires Prescription Number Last Dispense Date Ordering Provider Order Date Order Qty Source DASATINIB 50MG TAB TAKE ONE TABLET BY MOUTH EVERY DAY - AVOID GRAPEFRU IT PRODUCTS . DO NOT CRUSH OR CUT. *SWALLOW WHOLE* ORAL ACTIVE 09/12/2024 [id number] JOSHUA DEMPSEY 2023 30 [facility] DASATINIB 50MG TAB TAKE ONE TABLET BY MOUTH EVERY DAY - AVOID GRAPEFRU IT PRODUCTS . DO NOT CRUSH OR CUT. *SWALLOW WHOLE* ORAL DISCONT INUED 06/16/2024 [id number] JOSHUA DEMPSEY 2023 30 [facility] DASATINIB 50MG TAB TAKE ONE TABLET BY MOUTH EVERY DAY - AVOID GRAPEFRU IT PRODUCTS . DO NOT CRUSH OR CUT. *SWALLOW WHOLE* ORAL DISCONT INUED 04/04/2024 [id number] 4 JOSHUA DEMPSEY 2022 30 [facility] DASATINIB 50MG TAB TAKE ONE TABLET BY MOUTH EVERY DAY - AVOID GRAPEFRU IT PRODUCTS . DO NOT CRUSH OR CUT. *SWALLOW WHOLE* ORAL DISCONT INUED 01/08/2024 [id number] JOSHUA DEMPSEY 2022 30 [facility] DASATINIB 50MG TAB TAKE ONE TABLET BY MOUTH EVERY DAY - AVOID GRAPEFRU IT PRODUCTS . DO NOT CRUSH OR CUT. *SWALLOW WHOLE* ORAL DISCONT INUED 09/25/2023 [id number] 3 JOSHUA DEMPSEY 2022 30 [facility] DASATINIB 50MG TAB TAKE ONE TABLET BY MOUTH EVERY DAY - AVOID GRAPEFRU IT PRODUCTS . DO NOT CRUSH OR CUT. *SWALLOW WHOLE* ORAL DISCONT INUED 06/15/2023 [id number] 3 JOSHUA DEMPSEY 2022 30 [place] [facility] FLUOCINOLON E ACETONIDE 0.01% SOLN,TOP APPLY TO SCALP AND EARS TOPICALL Y TWICE A DAY NEEDED FOR PRURITIS FINGER BUFF SEWER AL USE ONLY TOPICA L 08/29/2023 [id number] 3 ARCENIO, MELANIE I 2022 60 [place] [facility] KETOCONAZOL E 2% SHAMPOO SHAMPOO SCALP TOPICALL Y 3 TIMES WEEKLY SEBORRHE IC DERMATIT IS *LATHER FOR 5 MINUTES THEN RINSE* TOPICA L 08/28/2023 [id number] 3 SHAMA,CH RISTOPHER T 2022 120 [place] [facility] LOPERAMIDE HCL 2MG CAP TAKE ONE CAPSULE BY MOUTH EVERY 2 HOURS NEEDED FOR DIARRHEA - TAKE 2 CAPSULES AT ONSET THEN 1 CAPSULE EVERY 2 HOURS UNTIL NO DIARRHEA FOR 12 HOURS. MAXIMUM 8 CAPSULES /24HOURS . ORAL HOLD 06/16/2024 [id number] JOSHUA DEMPSEY 2023 60 [place] [facility] PROCHLORPER AZINE MALEATE 10MG TAB TAKE ONE TABLET BY MOUTH FOUR TIMES A DAY NEEDED FOR NAUSEA AND VOMITING . DO NOT TAKE MORE THAN 40 MG PER DAY. ORAL HOLD 06/16/2024 [id number] JOSHUA DEMPSEY 2023 60 [place] [facility] PROCHLORPER AZINE MALEATE 10MG TAB TAKE ONE TABLET BY MOUTH FOUR TIMES A DAY NEEDED FOR NAUSEA AND VOMITING . DO NOT TAKE MORE THAN 40 MG PER DAY. ORAL 04/10/2023 [id number] JOSHUA DEMPSEY 2021 60 [place] [facility] TAMSULOSIN HCL 0.4MG CAP TAKE ONE CAPSULE BY MOUTH AT BEDTIME FOR URINARY SYMPTOMS ORAL SUSPEND ED 09/09/2024 [id number] MAXIME COX 2023 90 [place] [facility] TAMSULOSIN HCL 0.4MG CAP TAKE ONE CAPSULE BY MOUTH AT BEDTIME FOR URINARY SYMPTOMS ORAL DISCONT INUED 11/20/2023 [id number] JORDEN VERDUGO 2023 90 [facility] Allergies, Adverse Reactions, Alerts Combined list of allergies from Department of Defense and Veterans Affairs facilities. It does not include entries that were removed or entered in error. Substance Category Reaction Severity Reaction type Status Date Reported Comments Source FLUCONAZOLE Propensity to adverse reactions to drug (finding) active 8 [facility] LISINOPRIL Propensity to adverse reactions to drug (finding) Airway constrictio n active 0 [facility] Immunizations Combined list of available immunizations from the Department of Defense and Veterans Affairs facilities. Immunization Series Date Given Administered By Site Reaction Lot Number CVX Code Drug Dental Ceramist Assistant Status Comments Source INFLUENZA, HIGH-DOSE, QUADRIVALENT 2022 MIGUEL JAQUEZ RIGHT DELTO ID [id number] 197 complet ed [facility] ZOSTER RECOMBINANT 2 2022 ORLIN SENA LEFT DELTO ID [id number] 187 complet ed [id number] 12/02/23 ENTER DILUENT LOT# HERE [facility] TDAP 2022 SALVATORE CORONADO LEFT DELTO ID [id number] 115 complet ed [facility] ZOSTER RECOMBINANT 1 2022 SALVATORE CORONADO LEFT DELTO ID [id number] 187 complet ed [id number] [facility] INFLUENZA, INJECTABLE, QUADRIVALENT, PRESERVATIVE FREE 2021 WALTER DUPREE LEFT DELTO ID [id number] 150 complet ed [facility] INFLUENZA, UNSPECIFIED FORMULATION 2021 88 complet ed [facility] INFLUENZA, INJECTABLE, QUADRIVALENT, PRESERVATIVE FREE 2020 150 complet ed [facility] INFLUENZA, INJECTABLE, QUADRIVALENT, PRESERVATIVE FREE 2019 150 complet ed [facility] INFLUENZA, SEASONAL, INJECTABLE, PRESERVATIVE FREE 2018 140 complet ed [facility] INFLUENZA, INJECTABLE, QUADRIVALENT, PRESERVATIVE FREE 2018 150 complet ed [facility] INFLUENZA, INJECTABLE, QUADRIVALENT, PRESERVATIVE FREE 2017 150 complet ed Partner: [email or web address]. Administe red by: [facility] Clinician (NPI=Not Provided) . Partner 4 Lot#: [id number] Mfr: Greg Santos [facility] INFLUENZA, SEASONAL, INJECTABLE 2017 141 complet ed [id number]; [facility] HIGH DOSE SEASONAL 2016 135 complet ed [facility] INFLUENZA, HIGH DOSE SEASONAL 2015 135 complet ed [facility] PNEUMOCOCCAL CONJUGATE PCV 13 2015 133 complet ed [facility] INFLUENZA, HIGH DOSE SEASONAL 2015 135 complet ed [facility] INFLUENZA, HIGH DOSE SEASONAL 2014 135 complet ed [facility] PNEUMOCOCCAL CONJUGATE PCV 13 2014 133 complet ed [facility],L84 631,05/31 [facility] INFLUENZA, UNSPECIFIED FORMULATION 2013 88 complet ed [facility] INFLUENZA, UNSPECIFIED FORMULATION 2012 88 complet ed [facility] TDAP 2012 115 complet ed [employer] hKline [id number] exp 06/02/15 [facility] ZOSTER LIVE 2012 121 complet ed [employer] [id number] [facility] INFLUENZA, UNSPECIFIED FORMULATION 2007 88 complet ed [facility] PNEUMOCOCCAL, UNSPECIFIED FORMULATION 2004 VERONICA HOLLIDAY 109 complet ed [facility] TD(ADULT) UNSPECIFIED FORMULATION 2004 VERONICA HOLLIDAY 139 complet ed [facility] HEP B, UNSPECIFIED FORMULATION 1990 45 complet ed [facility] HEP B, UNSPECIFIED FORMULATION 1990 45 complet ed [facility] HEP B, UNSPECIFIED FORMULATION 1990 45 complet ed [facility] Results Combined list of recent chemistry, hematology and other laboratory results from Department of Defense and Veterans Affairs, ranging from 15 months to all on record, depending upon the facility. Order Name Results Value Reference Range Date Interpretation Specimen Comments Source ALBUMIN/ CREATINI NE RATIO URINE CREATININE [MASS/VOLU ME] IN URINE 65.0 mg/dL 58.0 - 161.0 09/29 Specimen Type: URINE No comment entered. Ordering Provider: KYLEIGH VERDUGO Report Released Date/Time: Sep 30, 2023 07:01 AM Reporting Lab: [facility] [address] Performing Lab: [facility] [address] [place] [facility] ALBUMIN/ CREATINI NE RATIO URINE MICROALBUM IN/CREATIN INE [MASS RATIO] IN URINE 21.5 mg/g{cre at} <29.9 - 29.9 09/29 Specimen Type: URINE No comment entered. Ordering Provider: KYLEIGH VERDUGO Report Released Date/Time: Sep 30, 2023 07:01 AM Reporting Lab: [facility] [address] Performing Lab: [facility] [address] [place] [facility] ALBUMIN/ CREATINI NE RATIO URINE MICROALBUM IN [MASS/VOLU ME] IN URINE 14.0 mg/L <29.9 - 29.9 09/29 Specimen Type: URINE No comment entered. Ordering Provider: KYLEIGH VERDUGO Report Released Date/Time: Sep 30, 2023 07:01 AM Reporting Lab: [facility] [address] Performing Lab: [facility] [address] [place] [facility] URINALYS IS COLOR OF URINE COLORLES S 08/21 Specimen Type: URINE No comment entered. Ordering Provider: KYLEIGH VERDUGO Report Released Date/Time: August 22, 2023 11:52 AM Reporting Lab: [facility] [address] Performing Lab: [facility] [address] [place] [facility] URINALYS IS SPECIFIC GRAVITY OF URINE 1.007 1.003 - 1.035 08/21 Specimen Type: URINE No comment entered. Ordering Provider: KYLEIGH VERDUGO Report Released Date/Time: August 22, 2023 11:52 AM Reporting Lab: [facility] [address] Performing Lab: [facility] [address] [place] [facility] URINALYS IS BILIRUBIN. TOTAL [PRESENCE] IN URINE BY TEST STRIP NEGATIVE 08/21 Specimen Type: URINE No comment entered. Ordering Provider: KYLEIGH VERDUGO Report Released Date/Time: August 22, 2023 11:52 AM Reporting Lab: [facility] [address] Performing Lab: [facility] [address] [place] [facility] URINALYS IS KETONES [MASS/VOLU ME] IN URINE BY TEST STRIP NEGATIVE 08/21 Specimen Type: URINE No comment entered. Ordering Provider: KYLEIGH VERDUGO Report Released Date/Time: August 22, 2023 11:52 AM Reporting Lab: [facility] [address] Performing Lab: [facility] [address] [place] [facility] URINALYS IS GLUCOSE [MASS/VOLU ME] IN URINE BY TEST STRIP NEGATIVE mg/dL 08/21 Specimen Type: URINE No comment entered. Ordering Provider: KYLEIGH VERDUGO Report Released Date/Time: August 22, 2023 11:52 AM Reporting Lab: [facility] [address] Performing Lab: [facility] [phone] [place] [facility] URINALYS IS PROTEIN [MASS/VOLU ME] IN URINE BY TEST STRIP NEGATIVE mg/dL 08/21 Specimen Type: URINE No comment entered. Ordering Provider: KYLEIGH VERDUGO Report Released Date/Time: August 22, 2023 11:52 AM Reporting Lab: [facility] [address] Performing Lab: [facility] [address] [place] [facility] URINALYS IS PH OF URINE BY TEST STRIP 5.5 5.0 - 8.0 08/21 Specimen Type: URINE No comment entered. Ordering Provider: KYLEIGH VERDUGO Report Released Date/Time: August 22, 2023 11:52 AM Reporting Lab: [facility] [address] Performing Lab: [facility] [address] [place] [facility] URINALYS IS LEUKOCYTES [#/AREA] IN URINE SEDIMENT BY MICROSCOPY HIGH POWER FIELD 1 /[HPF] 0 - 7 08/21 Specimen Type: URINE No comment entered. Ordering Provider: KYLEIGH VERDUGO Report Released Date/Time: August 22, 2023 11:52 AM Reporting Lab: [facility] [address] Performing Lab: [facility] [address] [place] [facility] URINALYS IS BACTERIA [PRESENCE] IN URINE SEDIMENT BY LIGHT MICROSCOPY NONE SEEN 08/21 Specimen Type: URINE No comment entered. Ordering Provider: KYLEIGH VERDUGO Report Released Date/Time: August 22, 2023 11:52 AM Reporting Lab: [facility] [address] Performing Lab: [facility] [address] [place] [facility] URINALYS IS ERYTHROCYT ES [#/AREA] IN URINE SEDIMENT BY MICROSCOPY HIGH POWER FIELD 1 /[HPF] 0 - 3 08/21 Specimen Type: URINE No comment entered. Ordering Provider: KYLEIGH VERDUGO Report Released Date/Time: August 22, 2023 11:52 AM Reporting Lab: [facility] [address] Performing Lab: [facility] [address] [place] [facility] URINALYS IS APPEARANCE OF URINE CLEAR 08/21 Specimen Type: URINE No comment entered. Ordering Provider: KYLEIGH VERDUGO Report Released Date/Time: August 22, 2023 11:52 AM Reporting Lab: [facility] [address] Performing Lab: [facility] [address] [place] [facility] URINALYS IS EPITHELIAL CELLS.SQUA MOUS [#/AREA] IN URINE SEDIMENT BY MICROSCOPY HIGH POWER FIELD NONE SEEN/[HP F] 08/21 Specimen Type: URINE No comment entered. Ordering Provider: KYLEIGH VERDUGO Report Released Date/Time: August 22, 2023 11:52 AM Reporting Lab: [facility] [address] Performing Lab: [facility] [address] [place] [facility] URINALYS IS HEMOGLOBIN [PRESENCE] IN URINE BY TEST STRIP NEGATIVE 08/21 Specimen Type: URINE No comment entered. Ordering Provider: KYLEIGH VERDUGO Report Released Date/Time: August 22, 2023 11:52 AM Reporting Lab: [facility] [address] Performing Lab: [facility] [address] [facility] URINALYS IS NITRITE [PRESENCE] IN URINE BY TEST STRIP NEGATIVE 08/21 Specimen Type: URINE No comment entered. Ordering Provider: KYLEIGH VERDUGO Report Released Date/Time: August 22, 2023 11:52 AM Reporting Lab: [facility] [address] Performing Lab: [facility] [phone] [facility] URINALYS IS LEUKOCYTE ESTERASE [PRESENCE] IN URINE BY TEST STRIP NEGATIVE 08/21 Specimen Type: URINE No comment entered. Ordering Provider: KYLEIGH VERDUGO Report Released Date/Time: August 22, 2023 11:52 AM Reporting Lab: [facility] [address] Performing Lab: [facility] [address] [facility] KAPPA/LA MBDA LC FREE,RAT IO KAPPA LIGHT CHAINS.JERMAINE E [MASS/VOLU ME] IN SERUM 44.6 mg/L 3.3 - 19.4 08/21 H Specimen Type: SERUM Comment: Free kappa/lambd a ratio in serum of normal individuals is 0.26-1.65. Excess production of free kappa or lambda chains can alter the ratio. Monoclonal free light chains are found in the serum of patients with multiple myeloma, Waldenstrom 's macroglobul inemia, mu-heavy chain disease, primary amyloidosis , light chain deposition disease, monoclonal gammopathy of undetermine d significanc e, and lymphoproli ferative disorders. Measurement of free light chain concen- tration in serum is useful for diagnosis, prognosis, monitoring disease activity and following response to therapy of these disorders. Test Performed by [facility], [facility], [address] [place] [address] El Sethi M.D., Ph.D., Director of Laboratorie s , CLIA [id number] Ordering Provider: TOBY DEMPSEY Report Released Date/Time: May 02, 2023 02:16 PM Reporting Lab: [facility] [address] Performing Lab: [address] [facility] KAPPA/LA MBDA LC FREE,RAT IO LAMBDA LIGHT CHAINS.JERMAINE E [MASS/VOLU ME] IN SERUM OR PLASMA 21.2 mg/L 5.7 - 26.3 08/21 Specimen Type: SERUM Comment: Free kappa/lambd a ratio in serum of normal individuals is 0.26-1.65. Excess production of free kappa or lambda chains can alter the ratio. Monoclonal free light chains are found in the serum of patients with multiple myeloma, Waldenstrom 's macroglobul inemia, mu-heavy chain disease, primary amyloidosis , light chain deposition disease, monoclonal gammopathy of undetermine d significanc e, and lymphoproli ferative disorders. Measurement of free light chain concen- tration in serum is useful for diagnosis, prognosis, monitoring disease activity and following response to therapy of these disorders. Test Performed by [facility], [facility], [address] [place] [address] El Sethi M.D., Ph.D., Director of Laboratorie s , [place] [id number] Ordering Provider: TOBY DEMPSEY Report Released Date/Time: May 02, 2023 02:16 PM Reporting Lab: [facility] [address] Performing Lab: [address] [facility] KAPPA/LA MBDA LC FREE,RAT IO KAPPA LIGHT CHAINS.JERMAINE E/LAMBDA LIGHT CHAINS.JERMAINE E [MASS RATIO] IN SERUM 2.10 0.26 - 1.65 08/21 H Specimen Type: SERUM Comment: Free kappa/lambd a ratio in serum of normal individuals is 0.26-1.65. Excess production of free kappa or lambda chains can alter the ratio. Monoclonal free light chains are found in the serum of patients with multiple myeloma, Waldenstrom 's macroglobul inemia, mu-heavy chain disease, primary amyloidosis , light chain deposition disease, monoclonal gammopathy of undetermine d significanc e, and lymphoproli ferative disorders. Measurement of free light chain concen- tration in serum is useful for diagnosis, prognosis, monitoring disease activity and following response to therapy of these disorders. Test Performed by [facility], [facility], [address] [place] [address] El Sethi M.D., Ph.D., Director of Laboratorie s , [place] [id number] Ordering Provider: TOBY DEMPSEY Report Released Date/Time: May 02, 2023 02:16 PM Reporting Lab: [place] [address] Performing Lab: [address] [place] [facility] ELP/IMMF IX,SERUM PANEL PROTEIN [MASS/VOLU ME] IN SERUM OR PLASMA 7.4 g/dL 6.0 - 8.3 08/21 Specimen Type: SERUM No comment entered. Ordering Provider: TOBY DEMPSEY Report Released Date/Time: May 02, 2023 02:16 PM Reporting Lab: [place] [address] Performing Lab: [place] [address] [place] [facility] ELP/IMMF IX,SERUM PANEL PROTEIN.MO NOCLONAL [MASS/VOLU ME] IN SERUM OR PLASMA BY ELECTROPHO RESIS 0.21 g/dL 08/21 Specimen Type: SERUM No comment entered. Ordering Provider: TOBY DEMPSEY Report Released Date/Time: May 02, 2023 02:16 PM Reporting Lab: [address] Performing Lab: [place] [address] [place] [facility] ELP/IMMF IX,SERUM PANEL IMMUNOFIXA TION FOR SERUM OR PLASMA IgM kappa 08/21 Specimen Type: SERUM No comment entered. Ordering Provider: TOBY DEMPSEY Report Released Date/Time: May 02, 2023 02:16 PM Reporting Lab: [facility] [address] Performing Lab: [place] [address] [place] [facility] ELP/IMMF IX,SERUM PANEL ALBUMIN [MASS/VOLU ME] IN SERUM OR PLASMA BY ELECTROPHO RESIS 4.88 g/dL 3.66 - 4.78 08/21 H Specimen Type: SERUM No comment entered. Ordering Provider: TOBY DEMPSEY Report Released Date/Time: May 02, 2023 02:16 PM Reporting Lab: [facility] [address] Performing Lab: [facility] [address] [place] [facility] ELP/IMMF IX,SERUM PANEL ALPHA 1 GLOBULIN [MASS/VOLU ME] IN SERUM OR PLASMA BY ELECTROPHO RESIS 0.23 g/dL 0.14 - 0.38 08/21 Specimen Type: SERUM No comment entered. Ordering Provider: TOBY DEMPSEY Report Released Date/Time: May 02, 2023 02:16 PM Reporting Lab: [facility] [address] Performing Lab: [address] [place] [facility] ELP/IMMF IX,SERUM PANEL ALPHA 2 GLOBULIN [MASS/VOLU ME] IN SERUM OR PLASMA BY ELECTROPHO RESIS 0.64 g/dL 0.50 - 0.90 08/21 Specimen Type: SERUM No comment entered. Ordering Provider: TOBY DEMPSEY Report Released Date/Time: May 02, 2023 02:16 PM Reporting Lab: [facility] [address] Performing Lab: [facility] [address] [place] [facility] ELP/IMMF IX,SERUM PANEL BETA 1 GLOBULIN [MASS/VOLU ME] IN SERUM OR PLASMA BY ELECTROPHO RESIS 0.36 g/dL 0.33 - 0.55 08/21 Specimen Type: SERUM No comment entered. Ordering Provider: TOBY DEMPSEY Report Released Date/Time: May 02, 2023 02:16 PM Reporting Lab: [facility] [address] Performing Lab: [facility] [address] [place] [facility] ELP/IMMF IX,SERUM PANEL BETA 2 GLOBULIN [MASS/VOLU ME] IN SERUM OR PLASMA BY ELECTROPHO RESIS 0.25 g/dL 0.20 - 0.52 08/21 Specimen Type: SERUM No comment entered. Ordering Provider: TOBY DEMPSEY Report Released Date/Time: May 02, 2023 02:16 PM Reporting Lab: [facility] [address] Performing Lab: [facility] [address] [place] [facility] ELP/IMMF IX,SERUM PANEL GAMMA GLOBULIN [MASS/VOLU ME] IN SERUM OR PLASMA BY ELECTROPHO RESIS 1.05 g/dL 0.58 - 1.72 08/21 Specimen Type: SERUM No comment entered. Ordering Provider: TOBY DEMPSEY Report Released Date/Time: May 02, 2023 02:16 PM Reporting Lab: [facility] [address] Performing Lab: [facility] [address] [place] [facility] ELP/IMMF IX,SERUM PANEL PROTEIN [MASS/VOLU ME] IN SERUM OR PLASMA 7.4 g/dL 6.0 - 8.3 08/21 Specimen Type: SERUM No comment entered. Ordering Provider: TOBY DEMPSEY Report Released Date/Time: May 02, 2023 02:16 PM Reporting Lab: [facility] [address] Performing Lab: [facility] [address] [place] [facility] ELP/IMMF IX,SERUM PANEL IMMUNOELEC TROPHORESI S FOR SERUM OR PLASMA [place] 08/21 Specimen Type: SERUM No comment entered. Ordering Provider: TOBY DEMPSEY Report Released Date/Time: May 02, 2023 02:16 PM Reporting Lab: [facility] [address] Performing Lab: [facility] [address] [place] [facility] BCR-ABL1 MAJOR QT PCR T(9;22)(Q3 4.1;Q11)(A BL1,BCR) FUSION TRANSCRIPT MAJOR BREAK POINTS [PRESENCE] IN BLOOD OR TISSUE BY MOLECULAR GENETICS METHOD <0.0030 <0 - 0 08/21 Specimen Type: BLOOD No comment entered. Ordering Provider: TOBY DEMPSEY Report Released Date/Time: May 02, 2023 02:16 PM Reporting Lab: [facility] [address] Performing Lab: [facility] [address] [facility] BCR-ABL1 MAJOR QT PCR BCR-ABL1 B2A2 FUSION PROTEIN [PRESENCE] IN BLOOD OR TISSUE BY MOLECULAR GENETICS METHOD POSITIVE for BCR-ABL1 major fusion transcri pt 08/21 Specimen Type: BLOOD No comment entered. Ordering Provider: TOBY DEMPSEY Report Released Date/Time: May 02, 2023 02:16 PM Reporting Lab: [facility] [address] Performing Lab: [facility] [address] [place] [facility] COMPREHE NSIVE METABOLI C PANEL+MG CREATININE [MASS/VOLU ME] IN SERUM OR PLASMA 1.1 mg/dL 0.7 - 1.2 08/21 Specimen Type: PLASMA No comment entered. Ordering Provider: TOBY DEMPSEY Report Released Date/Time: May 02, 2023 02:16 PM Reporting Lab: [facility] [address] Performing Lab: [facility] [address] [facility] COMPREHE NSIVE METABOLI C PANEL+MG UREA NITROGEN [MASS/VOLU ME] IN SERUM OR PLASMA 20 mg/dL 8 - 26 08/21 Specimen Type: PLASMA No comment entered. Ordering Provider: TOBY DEMPSEY Report Released Date/Time: May 02, 2023 02:16 PM Reporting Lab: [facility] [address] Performing Lab: [facility] [address] [place] [facility] COMPREHE NSIVE METABOLI C PANEL+MG GLUCOSE [MASS/VOLU ME] IN SERUM OR PLASMA 120 mg/dL 70 - 100 08/21 H Specimen Type: PLASMA No comment entered. Ordering Provider: TOBY DEMPSEY Report Released Date/Time: May 02, 2023 02:16 PM Reporting Lab: [facility] [address] Performing Lab: [facility] [address] [place] [facility] COMPREHE NSIVE METABOLI C PANEL+MG SODIUM [MOLES/VOL UME] IN SERUM OR PLASMA 141 mmol/L 136 - 145 08/21 Specimen Type: PLASMA No comment entered. Ordering Provider: TOBY DEMPSEY Report Released Date/Time: May 02, 2023 02:16 PM Reporting Lab: [facility] [address] Performing Lab: [facility] [address] [place] [facility] COMPREHE NSIVE METABOLI C PANEL+MG POTASSIUM [MOLES/VOL UME] IN SERUM OR PLASMA 3.9 mmol/L 3.5 - 5.1 08/21 Specimen Type: PLASMA No comment entered. Ordering Provider: TOBY DEMPSEY Report Released Date/Time: May 02, 2023 02:16 PM Reporting Lab: [facility] [address] Performing Lab: [facility] [address] [place] [facility] COMPREHE NSIVE METABOLI C PANEL+MG CHLORIDE [MOLES/VOL UME] IN SERUM OR PLASMA 104 mmol/L 98 - 107 08/21 Specimen Type: PLASMA No comment entered. Ordering Provider: TOBY DEMPSEY Report Released Date/Time: May 02, 2023 02:16 PM Reporting Lab: [facility] [address] Performing Lab: [facility] [address] [place] [facility] COMPREHE NSIVE METABOLI C PANEL+MG CARBON DIOXIDE, TOTAL [MOLES/VOL UME] IN SERUM OR PLASMA 30 mmol/L 22 - 29 08/21 H Specimen Type: PLASMA No comment entered. Ordering Provider: TOBY DEMPSEY Report Released Date/Time: May 02, 2023 02:16 PM Reporting Lab: [facility] [address] Performing Lab: [facility] [address] [place] [facility] COMPREHE NSIVE METABOLI C PANEL+MG CALCIUM [MASS/VOLU ME] IN SERUM OR PLASMA 9.9 mg/dL 8.4 - 10.2 08/21 Specimen Type: PLASMA No comment entered. Ordering Provider: TOBY DEMPSEY Report Released Date/Time: May 02, 2023 02:16 PM Reporting Lab: [facility] [address] Performing Lab: [facility] [address] [place] [facility] COMPREHE NSIVE METABOLI C PANEL+MG PROTEIN [MASS/VOLU ME] IN SERUM OR PLASMA 7.9 g/dL 6.0 - 8.3 08/21 Specimen Type: PLASMA No comment entered. Ordering Provider: TOBY DEMPSEY Report Released Date/Time: May 02, 2023 02:16 PM Reporting Lab: [facility] [address] Performing Lab: [facility] [address] [place] [facility] COMPREHE NSIVE METABOLI C PANEL+MG ALBUMIN [MASS/VOLU ME] IN SERUM OR PLASMA 4.6 g/dL 3.5 - 5.2 08/21 Specimen Type: PLASMA No comment entered. Ordering Provider: TOBY DEMPSEY Report Released Date/Time: May 02, 2023 02:16 PM Reporting Lab: [facility] [address] Performing Lab: [place] [address] [place] [facility] COMPREHE NSIVE METABOLI C PANEL+MG BILIRUBIN. TOTAL [MASS/VOLU ME] IN SERUM OR PLASMA 0.7 mg/dL 0.2 - 1.2 08/21 Specimen Type: PLASMA No comment entered. Ordering Provider: TOBY DEMPSEY Report Released Date/Time: May 02, 2023 02:16 PM Reporting Lab: [facility] [address] Performing Lab: [facility] [address] [place] [facility] COMPREHE NSIVE METABOLI C PANEL+MG MAGNESIUM [MASS/VOLU ME] IN SERUM OR PLASMA 2.1 mg/dL 1.6 - 2.6 08/21 Specimen Type: PLASMA No comment entered. Ordering Provider: TOBY DEMPSEY Report Released Date/Time: May 02, 2023 02:16 PM Reporting Lab: [facility] [address] Performing Lab: [facility] [address] [place] [facility] COMPREHE NSIVE METABOLI C PANEL+MG ANION GAP IN SERUM OR PLASMA 7 mmol/L 5 - 15 08/21 Specimen Type: PLASMA No comment entered. Ordering Provider: TOBY DEMPSEY Report Released Date/Time: May 02, 2023 02:16 PM Reporting Lab: [facility] [address] Performing Lab: [facility] [address] [place] [facility] COMPREHE NSIVE METABOLI C PANEL+MG ALKALINE PHOSPHATAS E [ENZYMATIC ACTIVITY/V OLUME] IN SERUM OR PLASMA 72 U/L 40 - 150 08/21 Specimen Type: PLASMA No comment entered. Ordering Provider: TOBY DEMPSEY Report Released Date/Time: May 02, 2023 02:16 PM Reporting Lab: [facility] [address] Performing Lab: [facility] [address] [place] [facility] COMPREHE NSIVE METABOLI C PANEL+MG ALANINE AMINOTRANS FERASE [ENZYMATIC ACTIVITY/V OLUME] IN SERUM OR PLASMA 8 U/L <55 - 55 08/21 Specimen Type: PLASMA No comment entered. Ordering Provider: TOBY DEMPSEY Report Released Date/Time: May 02, 2023 02:16 PM Reporting Lab: [facility] [address] Performing Lab: [facility] [address] [place] [facility] COMPREHE NSIVE METABOLI C PANEL+MG ASPARTATE AMINOTRANS FERASE [ENZYMATIC ACTIVITY/V OLUME] IN SERUM OR PLASMA 20 U/L <34 - 34 08/21 Specimen Type: PLASMA No comment entered. Ordering Provider: TOBY DEMPSEY Report Released Date/Time: May 02, 2023 02:16 PM Reporting Lab: [facility] [address] Performing Lab: [facility] [address] [place] [facility] COMPREHE NSIVE METABOLI C PANEL+MG GLOMERULAR FILTRATION RATE/1.73 SQ M.PREDICTE D [VOLUME RATE/AREA] IN SERUM, PLASMA OR BLOOD BY CREATININE -BASED FORMULA (CKD-EPI 2020) 66 60 08/21 Specimen Type: PLASMA No comment entered. Ordering Provider: TOBY DEMPSEY Report Released Date/Time: May 02, 2023 02:16 PM Reporting Lab: [facility] [address] Performing Lab: [facility] [address] [place] [facility] CBC & DIFF LEUKOCYTES [#/VOLUME] IN BLOOD BY AUTOMATED COUNT 4.80 10*3/uL 4.0 - 11.0 08/21 Specimen Type: BLOOD Comment: Automated Differentia l Performed Ordering Provider: TOBY DEMPSEY Report Released Date/Time: May 02, 2023 02:16 PM Reporting Lab: [facility] [address] Performing Lab: [facility] [address] [place] [facility] CBC & DIFF ERYTHROCYT ES [#/VOLUME] IN BLOOD BY AUTOMATED COUNT 4.70 10*6/uL 4.6 - 6.2 08/21 Specimen Type: BLOOD Comment: Automated Differentia l Performed Ordering Provider: TOBY DEMPSEY Report Released Date/Time: May 02, 2023 02:16 PM Reporting Lab: [facility] [address] Performing Lab: [facility] [address] [place] [facility] CBC & DIFF HEMOGLOBIN [MASS/VOLU ME] IN BLOOD 14.7 g/dL 13.5 - 17.9 08/21 Specimen Type: BLOOD Comment: Automated Differentia l Performed Ordering Provider: TOBY DEMPSEY Report Released Date/Time: May 02, 2023 02:16 PM Reporting Lab: [facility] [address] Performing Lab: [facility] [address] [place] [facility] CBC & DIFF HEMATOCRIT [VOLUME FRACTION] OF BLOOD BY AUTOMATED COUNT 42.8 41 - 54 08/21 Specimen Type: BLOOD Comment: Automated Differentia l Performed Ordering Provider: TOBY DEMPSEY Report Released Date/Time: May 02, 2023 02:16 PM Reporting Lab: [facility] [address] Performing Lab: [facility] [address] [place] [facility] CBC & DIFF MCV [ENTITIC VOLUME] BY AUTOMATED COUNT 91.1 fL 80 - 100 08/21 Specimen Type: BLOOD Comment: Automated Differentia l Performed Ordering Provider: TOBY DEMPSEY Report Released Date/Time: May 02, 2023 02:16 PM Reporting Lab: [facility] [address] Performing Lab: [facility] [address] [place] [facility] CBC & DIFF MCH [ENTITIC MASS] BY AUTOMATED COUNT 31.3 pg 27 - 33 08/21 Specimen Type: BLOOD Comment: Automated Differentia l Performed Ordering Provider: TOBY DEMPSEY Report Released Date/Time: May 02, 2023 02:16 PM Reporting Lab: [facility] [address] Performing Lab: [facility] [address] [place] [facility] CBC & DIFF MCHC [MASS/VOLU ME] BY AUTOMATED COUNT 34.3 g/dL 32.0 - 37.5 08/21 Specimen Type: BLOOD Comment: Automated Differentia l Performed Ordering Provider: TOBY DEMPSEY Report Released Date/Time: May 02, 2023 02:16 PM Reporting Lab: [facility] [address] Performing Lab: [facility] [address] [place] [facility] CBC & DIFF PLATELETS [#/VOLUME] IN BLOOD BY AUTOMATED COUNT 167 10*3/uL 150 - 400 08/21 Specimen Type: BLOOD Comment: Automated Differentia l Performed Ordering Provider: TOBY DEMPSEY Report Released Date/Time: May 02, 2023 02:16 PM Reporting Lab: [facility] [address] Performing Lab: [facility] [address] [place] [facility] CBC & DIFF PLATELET MEAN VOLUME [ENTITIC VOLUME] IN BLOOD BY AUTOMATED COUNT 9.0 fL 7.4 - 10.4 08/21 Specimen Type: BLOOD Comment: Automated Differentia l Performed Ordering Provider: TOBY DEMPSEY Report Released Date/Time: May 02, 2023 02:16 PM Reporting Lab: [facility] [address] Performing Lab: [facility] [address] [place] [facility] CBC & DIFF NEUTROPHIL S/100 LEUKOCYTES IN BLOOD BY MANUAL COUNT 51.7 40.0 - 80.0 08/21 Specimen Type: BLOOD Comment: Automated Differentia l Performed Ordering Provider: TOBY DEMPSEY Report Released Date/Time: May 02, 2023 02:16 PM Reporting Lab: [facility] [address] Performing Lab: [facility] [address] [place] [facility] CBC & DIFF LYMPHOCYTE S/100 LEUKOCYTES IN BLOOD BY MANUAL COUNT 34.4 15.0 - 45.0 08/21 Specimen Type: BLOOD Comment: Automated Differentia l Performed Ordering Provider: TOBY DEMPSEY Report Released Date/Time: May 02, 2023 02:16 PM Reporting Lab: [facility] [address] Performing Lab: [facility] [address] [place] [facility] CBC & DIFF MONOCYTES/ 100 LEUKOCYTES IN BLOOD BY AUTOMATED COUNT 9.6 2.0 - 12.0 08/21 Specimen Type: BLOOD Comment: Automated Differentia l Performed Ordering Provider: TOBY DEMPSEY Report Released Date/Time: May 02, 2023 02:16 PM Reporting Lab: [facility] [address] Performing Lab: [facility] [address] [place] [facility] CBC & DIFF EOSINOPHIL S/100 LEUKOCYTES IN BLOOD BY AUTOMATED COUNT 3.3 0.0 - 6.0 08/21 Specimen Type: BLOOD Comment: Automated Differentia l Performed Ordering Provider: TOBY DEMPSEY Report Released Date/Time: May 02, 2023 02:16 PM Reporting Lab: [facility] [address] Performing Lab: [facility] [address] [place] [facility] CBC & DIFF BASOPHILS/ 100 LEUKOCYTES IN BLOOD BY MANUAL COUNT 0.6 0.0 - 2.0 08/21 Specimen Type: BLOOD Comment: Automated Differentia l Performed Ordering Provider: TOBY DEMPSEY Report Released Date/Time: May 02, 2023 02:16 PM Reporting Lab: [facility] [address] Performing Lab: [facility] [address] [place] [facility] CBC & DIFF ERYTHROCYT E DISTRIBUTI ON WIDTH [RATIO] BY AUTOMATED COUNT 14.4 11.5 - 14.5 08/21 Specimen Type: BLOOD Comment: Automated Differentia l Performed Ordering Provider: TOBY DEMPSEY Report Released Date/Time: May 02, 2023 02:16 PM Reporting Lab: [facility] [address] Performing Lab: [facility] [address] [place] [facility] CBC & DIFF LYMPHOCYTE S [#/VOLUME] IN BLOOD BY AUTOMATED COUNT 1.65 10*3/uL 1.0 - 4.0 08/21 Specimen Type: BLOOD Comment: Automated Differentia l Performed Ordering Provider: TOBY DEMPSEY Report Released Date/Time: May 02, 2023 02:16 PM Reporting Lab: [facility] [address] Performing Lab: [facility] [address] [place] [facility] CBC & DIFF MONOCYTES [#/VOLUME] IN BLOOD BY AUTOMATED COUNT 0.46 10*3/uL 0.1 - 1.0 08/21 Specimen Type: BLOOD Comment: Automated Differentia l Performed Ordering Provider: TOBY DEMPSEY Report Released Date/Time: May 02, 2023 02:16 PM Reporting Lab: [facility] [address] Performing Lab: [facility] [address] [place] [facility] CBC & DIFF NEUTROPHIL S [#/VOLUME] IN BLOOD BY AUTOMATED COUNT 2.48 10*3/uL 2.0 - 7.7 08/21 Specimen Type: BLOOD Comment: Automated Differentia l Performed Ordering Provider: TOBY DEMPSEY Report Released Date/Time: May 02, 2023 02:16 PM Reporting Lab: [facility] [address] Performing Lab: [facility] [address] [place] [facility] CBC & DIFF EOSINOPHIL S [#/VOLUME] IN BLOOD BY AUTOMATED COUNT 0.16 10*3/uL 0 - 0.5 08/21 Specimen Type: BLOOD Comment: Automated Differentia l Performed Ordering Provider: TOBY DEMPSEY Report Released Date/Time: May 02, 2023 02:16 PM Reporting Lab: [facility] [address] Performing Lab: [facility] [address] [facility] CBC & DIFF BASOPHILS [#/VOLUME] IN BLOOD BY AUTOMATED COUNT 0.03 10*3/uL 0 - 0.2 08/21 Specimen Type: BLOOD Comment: Automated Differentia l Performed Ordering Provider: TOBY DEMPSEY Report Released Date/Time: May 02, 2023 02:16 PM Reporting Lab: [facility] [address] Performing Lab: [facility] [address] [facility] CBC & DIFF IG(META,MY GARRET,PRO) 0.4 08/21 Specimen Type: BLOOD Comment: Automated Differentia l Performed Ordering Provider: TOBY DEMPSEY Report Released Date/Time: May 02, 2023 02:16 PM Reporting Lab: [facility] [address] Performing Lab: [facility] [address] [facility] CBC & DIFF IMMATURE GRANULOCYT ES [PRESENCE] IN BLOOD BY AUTOMATED COUNT 0.02 10*3/uL 0 - 0.1 08/21 Specimen Type: BLOOD Comment: Automated Differentia l Performed Ordering Provider: TOBY DEMPSEY Report Released Date/Time: May 02, 2023 02:16 PM Reporting Lab: [facility] [address] Performing Lab: [facility] [address] [facility] BCR-ABL1 PCR Panel T(9;22)(Q3 4.1;Q11)(A BL1,BCR) B2A2+B3A2 FUSION TRANSCRIPT /CONTROL TRANSCRIPT (INTERNATI ONAL SCALE) [# RATIO] IN BLOOD OR TISSUE BY MOLECULAR GENETICS METHOD 0.000 04/21 Specimen Type: BLOOD Comment: The P210 BCR-ABL1 fusion transcript is NOT detected. Reverse transcripti on real-time PCR is performed for the P210 BCR-ABL1 transcript associated with the t(9;22) chromosomal translocati on usually seen in chronic myelogenous leukemia. Results are expressed as a percent ratio of BCR-ABL1 and further adjusted to the internation al scale (IS). For additional information , please refer to http://[employer].Squee/faq/FA Q72 (This link is being provided for information al/educatio nal purposes only.) Assay sensitivity is at least 4.5-logs below baseline BCR-ABL1 transcript levels but is dependent on quantity and quality of RNA used for testing and the cellularity of the sample. This test was developed and its analytical performance characteris tics have been determined [place] It has not been cleared or approved by the FDA. This assay has been validated pursuant to the CLIA regulations and is used for clinical purposes. Jess Boyd M.D. Staff Pathologist Test Performed by [facility], [employer] [place], [address] [place] [address] El Sethi M.D., Ph.D., Director of Laboratorie s , CLIA [id number] Ordering Provider: AMINAH HORTON Report Released Date/Time: Jan 07, 2023 03:55 PM Reporting Lab: [facility] [address] [place] [address] Performing Lab: [address] [facility] BCR-ABL1 PCR Panel T(9;22)(Q3 4.1;Q11)(A BL1,BCR) B2A2+B3A2 FUSION TRANSCRIPT /CONTROL TRANSCRIPT (INTERNATI ONAL SCALE) [# RATIO] IN BLOOD OR TISSUE BY MOLECULAR GENETICS METHOD Not Detected 04/21 Specimen Type: BLOOD Comment: The P210 BCR-ABL1 fusion transcript is NOT detected. Reverse transcripti on real-time PCR is performed for the P210 BCR-ABL1 transcript associated with the t(9;22) chromosomal translocati on usually seen in chronic myelogenous leukemia. Results are expressed as a percent ratio of BCR-ABL1 and further adjusted to the internation al scale (IS). For additional information , please refer to http://[employer]uString .KidsLink/faq/FA Q72 (This link is being provided for information al/educatio nal purposes only.) Assay sensitivity is at least 4.5-logs below baseline BCR-ABL1 transcript levels but is dependent on quantity and quality of RNA used for testing and the cellularity of the sample. This test was developed and its analytical performance characteris tics have been determined by [place]. It has not been cleared or approved by the FDA. This assay has been validated pursuant to the CLIA regulations and is used for clinical purposes. Jess Boyd M.D. Staff Pathologist Test Performed by [facility], [employer] [place], [address] [place] [address] El Sethi M.D., Ph.D., Director of Laboratorie s , CLIA [id number] Ordering Provider: AMINAH HORTON Report Released Date/Time: Jan 07, 2023 03:55 PM Reporting Lab: [facility] [address] [facility] [place] [address] Performing Lab: [facility] [id number] [place] [address] [facility] BCR-ABL1 PCR Panel T(9;22)(Q3 4.1;Q11)(A BL1,BCR) B2A2+B3A2 FUSION TRANSCRIPT /CONTROL TRANSCRIPT (INTERNATI ONAL SCALE) [# RATIO] IN BLOOD OR TISSUE BY MOLECULAR GENETICS METHOD 0.000 04/21 Specimen Type: BLOOD Comment: The P210 BCR-ABL1 fusion transcript is NOT detected. Reverse transcripti on real-time PCR is performed for the P210 BCR-ABL1 transcript associated with the t(9;22) chromosomal translocati on usually seen in chronic myelogenous leukemia. Results are expressed as a percent ratio of BCR-ABL1 and further adjusted to the internation al scale (IS). For additional information , please refer to [email or web address] [email or web address] .KidsLink/faq/FA Q72 (This link is being provided for information al/educatio nal purposes only.) Assay sensitivity is at least 4.5-logs below baseline BCR-ABL1 transcript levels but is dependent on quantity and quality of RNA used for testing and the cellularity of the sample. This test was developed and its analytical performance characteris tics have been determined by [place]. It has not been cleared or approved by the FDA. This assay has been validated pursuant to the CLIA regulations and is used for clinical purposes. Jess Boyd M.D. Staff Pathologist Test Performed by [facility], [facility], [address] [place] [address] El Sethi M.D., Ph.D., Director of Laboratorie s , CLIA [id number] Ordering Provider: AMINAH HORTON Report Released Date/Time: Jan 07, 2023 03:55 PM Reporting Lab: [facility] [address] [place] [facility] [address] Performing Lab: [place] [id number] [facility] COMPREHE NSIVE METABOLI C PANEL CREATININE [MASS/VOLU ME] IN SERUM OR PLASMA 1.1 mg/dL 0.7 - 1.3 04/21 Specimen Type: PLASMA No comment entered. Ordering Provider: AMINAH HORTON Report Released Date/Time: Jan 07, 2023 03:55 PM Reporting Lab: [facility] [address] [facility] [address] Performing Lab: [address] [facility] [address] [facility] COMPREHE NSIVE METABOLI C PANEL UREA NITROGEN [MASS/VOLU ME] IN SERUM OR PLASMA 23 mg/dL 7 - 20.6 04/21 H Specimen Type: PLASMA No comment entered. Ordering Provider: AMINAH HORTON Report Released Date/Time: Jan 07, 2023 03:55 PM Reporting Lab: [facility] [address] [place] [address] Performing Lab: [facility] [address] [facility] [address] [facility] COMPREHE NSIVE METABOLI C PANEL SODIUM [MOLES/VOL UME] IN SERUM OR PLASMA 142 meq/L 136 - 145 04/21 Specimen Type: PLASMA No comment entered. Ordering Provider: AMINAH HORTON Report Released Date/Time: Jan 07, 2023 03:55 PM Reporting Lab: [facility] [address] [place] [address] Performing Lab: [facility] [address] [place] [address] [facility] COMPREHE NSIVE METABOLI C PANEL POTASSIUM [MOLES/VOL UME] IN SERUM OR PLASMA 4.4 meq/L 3.5 - 5.2 04/21 Specimen Type: PLASMA No comment entered. Ordering Provider: AMINAH HORTON Report Released Date/Time: Jan 07, 2023 03:55 PM Reporting Lab: [facility] [address] [facility] [address] Performing Lab: [facility] [address] [facility] [address] [facility] COMPREHE NSIVE METABOLI C PANEL CHLORIDE [MOLES/VOL UME] IN SERUM OR PLASMA 107 meq/L 98 - 109 04/21 Specimen Type: PLASMA No comment entered. Ordering Provider: AMINAH HORTON Report Released Date/Time: Jan 07, 2023 03:55 PM Reporting Lab: [facility] [address] [facility] [id number] Performing Lab: [facility] [address] [facility] [address] [facility] COMPREHE NSIVE METABOLI C PANEL CARBON DIOXIDE, TOTAL [MOLES/VOL UME] IN SERUM OR PLASMA 25 mmol/L 22 - 31 04/21 Specimen Type: PLASMA No comment entered. Ordering Provider: AMINAH HORTON Report Released Date/Time: Jan 07, 2023 03:55 PM Reporting Lab: [facility] [address] [facility] [address] Performing Lab: [facility] [address] [facility] [address] [facility] COMPREHE NSIVE METABOLI C PANEL CALCIUM [MASS/VOLU ME] IN SERUM OR PLASMA 9.2 mg/dL 8.4 - 10.6 04/21 Specimen Type: PLASMA No comment entered. Ordering Provider: AMINAH HORTON Report Released Date/Time: Jan 07, 2023 03:55 PM Reporting Lab: [facility] [address] [facility] [address] Performing Lab: [facility] [address] [facility] [address] [facility] COMPREHE NSIVE METABOLI C PANEL PROTEIN [MASS/VOLU ME] IN SERUM OR PLASMA 7.4 g/dL 6.4 - 8.3 04/21 Specimen Type: PLASMA No comment entered. Ordering Provider: AMINAH HORTON Report Released Date/Time: Jan 07, 2023 03:55 PM Reporting Lab: [facility] [address] [facility] [address] Performing Lab: [place] [address] [facility] [address] [facility] COMPREHE NSIVE METABOLI C PANEL ALBUMIN [MASS/VOLU ME] IN SERUM OR PLASMA 4.4 g/dL 2.8 - 4.5 04/21 Specimen Type: PLASMA No comment entered. Ordering Provider: AMINAH HORTON Report Released Date/Time: Jan 07, 2023 03:55 PM Reporting Lab: [address] [facility] [address] Performing Lab: [address] [facility] [address] [facility] COMPREHE NSIVE METABOLI C PANEL BILIRUBIN. TOTAL [MASS/VOLU ME] IN SERUM OR PLASMA 0.40 mg/dL 0.16 - 1.25 04/21 Specimen Type: PLASMA No comment entered. Ordering Provider: AMINAH HORTON Report Released Date/Time: Jan 07, 2023 03:55 PM Reporting Lab: [address] [facility] [address] Performing Lab: [address] [facility] [address] [facility] COMPREHE NSIVE METABOLI C PANEL ALKALINE PHOSPHATAS E [ENZYMATIC ACTIVITY/V OLUME] IN SERUM OR PLASMA 64 U/L 40 - 150 04/21 Specimen Type: PLASMA No comment entered. Ordering Provider: AMINAH HORTON Report Released Date/Time: Jan 07, 2023 03:55 PM Reporting Lab: [facility] [address] [facility] [address] [facility] [address] [facility] [address] Performing Lab: [facility] [address] [facility] [address] [facility] COMPREHE NSIVE METABOLI C PANEL GLUCOSE [MASS/VOLU ME] IN SERUM OR PLASMA 107 mg/dL 70 - 105 04/21 H Specimen Type: PLASMA No comment entered. Ordering Provider: AMINAH HORTON Report Released Date/Time: Jan 07, 2023 03:55 PM Reporting Lab: [facility] [address] [facility] [address] Performing Lab: [facility] [address] [facility] [address] [facility] COMPREHE NSIVE METABOLI C PANEL ANION GAP IN SERUM OR PLASMA 10.0 meq/L 5 - 18 04/21 Specimen Type: PLASMA No comment entered. Ordering Provider: AMINAH HORTON Report Released Date/Time: Jan 07, 2023 03:55 PM Reporting Lab: [facility] [address] [facility] [address] Performing Lab: [place] [address] [facility] [address] [facility] COMPREHE NSIVE METABOLI C PANEL ALANINE AMINOTRANS FERASE [ENZYMATIC ACTIVITY/V OLUME] IN SERUM OR PLASMA 8 U/L 10 - 55 04/21 L Specimen Type: PLASMA No comment entered. Ordering Provider: AMINAH HORTON Report Released Date/Time: Jan 07, 2023 03:55 PM Reporting Lab: [facility] [address] [facility] [address] Performing Lab: [facility] [address] [facility] [address] [facility] COMPREHE NSIVE METABOLI C PANEL ASPARTATE AMINOTRANS FERASE [ENZYMATIC ACTIVITY/V OLUME] IN SERUM OR PLASMA 19 U/L 5 - 34 04/21 Specimen Type: PLASMA No comment entered. Ordering Provider: AMINAH HORTON Report Released Date/Time: Jan 07, 2023 03:55 PM Reporting Lab: [facility] [address] [facility] [address] Performing Lab: [place] [address] [facility] [address] [facility] COMPREHE NSIVE METABOLI C PANEL GLOMERULAR FILTRATION RATE/1.73 SQ M.PREDICTE D [VOLUME RATE/AREA] IN SERUM, PLASMA OR BLOOD BY CREATININE -BASED FORMULA (CKD-EPI 2020) 66 90 04/21 Specimen Type: PLASMA No comment entered. Ordering Provider: AMINAH HORTON Report Released Date/Time: Jan 07, 2023 03:55 PM Reporting Lab: [address] [facility] [address] Performing Lab: [address] [place] [place] [address] [facility] CBC (DIFF) LEUKOCYTES [#/VOLUME] IN BLOOD BY AUTOMATED COUNT 4.2 10*3/uL 4.2 - 10.3 04/21 Specimen Type: BLOOD No comment entered. Ordering Provider: AMINAH HORTON Report Released Date/Time: Jan 07, 2023 03:55 PM Reporting Lab: [address] [facility] [address] Performing Lab: [address] [facility] [address] [facility] CBC (DIFF) ERYTHROCYT ES [#/VOLUME] IN BLOOD BY AUTOMATED COUNT 4.34 10*6/uL 4.20 - 5.80 04/21 Specimen Type: BLOOD No comment entered. Ordering Provider: AMINAH HORTON Report Released Date/Time: Jan 07, 2023 03:55 PM Reporting Lab: [address] [facility] [address] Performing Lab: [address] [facility] [address] [facility] CBC (DIFF) HEMOGLOBIN [MASS/VOLU ME] IN BLOOD 13.2 g/dL 13.0 - 17.0 04/21 Specimen Type: BLOOD No comment entered. Ordering Provider: AMINAH HORTON Report Released Date/Time: Jan 07, 2023 03:55 PM Reporting Lab: [address] [facility] [address] Performing Lab: [address] [facility] [address] [facility] CBC (DIFF) HEMATOCRIT [VOLUME FRACTION] OF BLOOD BY AUTOMATED COUNT 40.6 39.0 - 50.0 04/21 Specimen Type: BLOOD No comment entered. Ordering Provider: AMINAH HORTON Report Released Date/Time: Jan 07, 2023 03:55 PM Reporting Lab: [facility] [address] [facility] [facility] [address] Performing Lab: [facility] [address] [facility] [address] [facility] CBC (DIFF) MCV [ENTITIC VOLUME] BY AUTOMATED COUNT 93.5 fL 80.0 - 100.0 04/21 Specimen Type: BLOOD No comment entered. Ordering Provider: AMINAH HORTON Report Released Date/Time: Jan 07, 2023 03:55 PM Reporting Lab: [facility] [address] [facility] [address] Performing Lab: [address] [address] [facility] CBC (DIFF) MCH [ENTITIC MASS] BY AUTOMATED COUNT 30.4 pg 27.0 - 35.0 04/21 Specimen Type: BLOOD No comment entered. Ordering Provider: AMINAH HORTON Report Released Date/Time: Jan 07, 2023 03:55 PM Reporting Lab: [facility] [address] [place] [address] [facility] [address] Performing Lab: [address] [facility] [address] [facility] CBC (DIFF) MCHC [MASS/VOLU ME] BY AUTOMATED COUNT 32.5 g/dL 32.0 - 36.0 04/21 Specimen Type: BLOOD No comment entered. Ordering Provider: AMINAH HORTON Report Released Date/Time: Jan 07, 2023 03:55 PM Reporting Lab: [facility] [address] [facility] [address] Performing Lab: [address] [facility] [address] [facility] CBC (DIFF) PLATELETS [#/VOLUME] IN BLOOD 173 10*3/uL 150 - 410 04/21 Specimen Type: BLOOD No comment entered. Ordering Provider: AMINAH HORTON Report Released Date/Time: Jan 07, 2023 03:55 PM Reporting Lab: [facility] [address] [place] [address] [facility] [address] Performing Lab: [address] [facility] [address] [facility] CBC (DIFF) PLATELET MEAN VOLUME [ENTITIC VOLUME] IN BLOOD BY AUTOMATED COUNT 9.5 fL 8.5 - 12.5 04/21 Specimen Type: BLOOD No comment entered. Ordering Provider: AMINAH HORTON Report Released Date/Time: Jan 07, 2023 03:55 PM Reporting Lab: [address] [facility] [address] Performing Lab: [address] [facility] [address] [facility] CBC (DIFF) ERYTHROCYT E DISTRIBUTI ON WIDTH [RATIO] BY AUTOMATED COUNT 14.5 11.3 - 16.5 04/21 Specimen Type: BLOOD No comment entered. Ordering Provider: AMINAH HORTON Report Released Date/Time: Jan 07, 2023 03:55 PM Reporting Lab: [address] [facility] [address] Performing Lab: [address] [facility] [address] [facility] CBC (DIFF) NEUTROPHIL S/100 LEUKOCYTES IN BLOOD BY AUTOMATED COUNT 46.4 39.0 - 79.0 04/21 Specimen Type: BLOOD No comment entered. Ordering Provider: AMINAH HORTON Report Released Date/Time: Jan 07, 2023 03:55 PM Reporting Lab: [address] [facility] [address] Performing Lab: [address] [facility] [address] [facility] CBC (DIFF) NEUTROPHIL S [#/VOLUME] IN BLOOD BY AUTOMATED COUNT 1.9 10*3/uL 1.6 - 6.2 04/21 Specimen Type: BLOOD No comment entered. Ordering Provider: AMINAH HORTON Report Released Date/Time: Jan 07, 2023 03:55 PM Reporting Lab: [facility] [address] [place] [address] [place] [address] Performing Lab: [address] [facility] [address] [facility] CBC (DIFF) LYMPHOCYTE S/100 LEUKOCYTES IN BLOOD BY AUTOMATED COUNT 39.0 12.0 - 45.0 04/21 Specimen Type: BLOOD No comment entered. Ordering Provider: AMINAH HORTON Report Released Date/Time: Jan 07, 2023 03:55 PM Reporting Lab: [facility] [address] [facility] [address] Performing Lab: [address] [facility] [address] [facility] CBC (DIFF) LYMPHOCYTE S [#/VOLUME] IN BLOOD BY AUTOMATED COUNT 1.6 10*3/uL 1.1 - 3.4 04/21 Specimen Type: BLOOD No comment entered. Ordering Provider: AMINAH HORTON Report Released Date/Time: Jan 07, 2023 03:55 PM Reporting Lab: [address] [facility] [address] Performing Lab: [address] [facility] [address] [facility] CBC (DIFF) MONOCYTES/ 100 LEUKOCYTES IN BLOOD BY AUTOMATED COUNT 8.7 2.0 - 12.0 04/21 Specimen Type: BLOOD No comment entered. Ordering Provider: AMINAH HORTON Report Released Date/Time: Jan 07, 2023 03:55 PM Reporting Lab: [address] [facility] [address] Performing Lab: [address] [facility] [address] [facility] CBC (DIFF) MONOCYTES [#/VOLUME] IN BLOOD BY AUTOMATED COUNT 0.4 10*3/uL 0.3 - 0.9 04/21 Specimen Type: BLOOD No comment entered. Ordering Provider: AMINAH HORTON Report Released Date/Time: Jan 07, 2023 03:55 PM Reporting Lab: [address] [facility] [address] Performing Lab: [address] [facility] [address] [facility] CBC (DIFF) EOSINOPHIL S/100 LEUKOCYTES IN BLOOD BY AUTOMATED COUNT 3.9 0.0 - 6.0 04/21 Specimen Type: BLOOD No comment entered. Ordering Provider: AMINAH HORTON Report Released Date/Time: Jan 07, 2023 03:55 PM Reporting Lab: [address] [facility] [address] Performing Lab: [address] [facility] [address] [facility] CBC (DIFF) EOSINOPHIL S [#/VOLUME] IN BLOOD BY AUTOMATED COUNT 0.2 10*3/uL 0.1 - 0.5 04/21 Specimen Type: BLOOD No comment entered. Ordering Provider: AMINAH HORTON Report Released Date/Time: Jan 07, 2023 03:55 PM Reporting Lab: [address] [facility] [address] Performing Lab: [address] [facility] [address] [facility] CBC (DIFF) BASOPHILS/ 100 LEUKOCYTES IN BLOOD BY AUTOMATED COUNT 1.0 0.0 - 2.0 04/21 Specimen Type: BLOOD No comment entered. Ordering Provider: AMINAH HORTON Report Released Date/Time: Jan 07, 2023 03:55 PM Reporting Lab: [address] [facility] [address] Performing Lab: [address] [facility] [address] [facility] CBC (DIFF) BASOPHILS [#/VOLUME] IN BLOOD BY AUTOMATED COUNT 0.0 10*3/uL 0.0 - 0.1 04/21 Specimen Type: BLOOD No comment entered. Ordering Provider: AMINAH HORTON Report Released Date/Time: Jan 07, 2023 03:55 PM Reporting Lab: [address] [facility] [address] Performing Lab: [address] [facility] [address] [facility] CBC (DIFF) IMMATURE GRANULOCYT ES/100 LEUKOCYTES IN BLOOD BY AUTOMATED COUNT 1.0 0.0 - 0.6 04/21 H Specimen Type: BLOOD No comment entered. Ordering Provider: AMINAH HORTON Report Released Date/Time: Jan 07, 2023 03:55 PM Reporting Lab: [address] [facility] [address] Performing Lab: [facility] [address] [facility] [address] [facility] CBC (DIFF) IMMATURE GRANULOCYT ES [#/VOLUME] IN BLOOD BY AUTOMATED COUNT 0.0 10*3/uL 0.0 - 0.5 04/21 Specimen Type: BLOOD No comment entered. Ordering Provider: AMINAH HORTON Report Released Date/Time: Jan 07, 2023 03:55 PM Reporting Lab: [place] [address] [facility] [address] Performing Lab: [address] [facility] [address] [facility] Vital Signs Combined list of inpatient and outpatient Vital Signs from Department of Defense and [facility], ranging from 12 months to all on record, depending upon the facility. Vital Sign Value Date Comments Source Encounters Combined list of: 1) Encounters from Department of Veterans Affairs facilities going back up to thelast 18 months. 2) Encounters from the Department of Defense facilities going back up to 280 months. Location Location Details Encounter Type Encounter Number Reason For Visit Attending Provider ADM Date DC Date Status Disposition Source [facility] Outpatient Encounter [id number] AGATA DEMPSEY 04/09 [facility] Outpatient Encounter [id number] 04/24 [facility] IS [facility] Outpatient Encounter [id number] 04/27 [facility] Outpatient Encounter [id number] 04/27 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
BOLASUNIL LEANN Keena 05/01 [facility] CASE MANAGEMENT [id number] ALYSSA ARENAS H 05/03 [facility] Outpatient Encounter [id number] AMINAH HORTON 05/20 [facility] Outpatient Encounter [id number] AMINAH HORTON 05/20 [facility] IS [facility] Outpatient Encounter [id number] 05/27 [facility] Outpatient Encounter [id number] AMINAH HORTON 05/27 [facility] IS [facility] Outpatient Encounter [id number] Diagnos is: ICD-10- CM 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 OPC BELT STRAP SLEEV GRMNT COVER [id number] Diagnos is: ICD-10- CM M25.561 Pain in right knee
EMAD,JOSETTE S S 07/03 [facility] OPC BELT STRAP SLEEV GRMNT COVER [id number] Diagnos is: ICD-10- CM M25.562 Pain in left knee
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
ARCENIO,N OAH I 08/27 [facility] QNHP OL DIG ASSMT&MGMT 5-10 [id number] Diagnos is: ICD-10- CM L21.9 Seborrh eic dermati tis, 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
VIVIANA BEDOYA 09/13 [facility] Outpatient Encounter [id number] AGTAA DEMPSEY J 09/24 [facility] [place] [facility] [place] [id number] Diagnos is: ICD-10- CM Z01.118 Encntr for exam of ears and hearing w oth abnorma l finding s
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
ORQUIDEA THURMAN 11/05 [facility] Outpatient Encounter [id number] Diagnos is: ICD-10- CM Z02.89 Encount er for other adminis trative examina tions<b r/> ZBIGNIEW MILLER 11/22 [facility] CONFORMITY EVALUATION [id number] Diagnos is: ICD-10- CM Z46.1 Encount er for fitting and adjustm ent of hearing aid<br/ > JERRY GARZA 11/26 [facility] IS [facility] IMMUNIZATI ON ADMIN [id number] Diagnos is: ICD-10- CM Z23 Encount er for immuniz ation<b r/> Leonel SEAN 12/11 [facility] IS [facility] [place]UNIZATI [place] ADMIN [id number] Diagnos is: ICD-10- CM Z23 Encount er for immuniz ation<b r/> MIGUEL KEYS 12/31 [facility] IS [facility] Outpatient Encounter [id number] 01/01 [facility] OFFICE O/P EST MOD 30-39 MIN [id number] Diagnos is: ICD-10- CM 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, BCR/ABL -positi ve, 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<b r/> AGATA DEMP[facility]Y IE J [facility]07 [facility] Outpatient Encounter [id number] AGATA DEMPSEY IE J 01/07 [place] [facility] CASE MANAGEMENT [id number] EUGENIEGREGOR LI 01/07 [facility] TARGETED CASE MANAGEMENT [id number] LANDONЮЛИЯLILIANA DALY 01/30 [facility] Outpatient Encounter [id number] Cinthya TAPIA L 01/31 [facility] OPC OFF/OP EST AUGUST X REQ PHY/QHP [id number] Diagnos is: ICD-10- CM 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<br/ > CASEY KHAN 02/17 [facility] TARGETED CASE MANAGEMENT [id number] Cinthya TAPIA 03/25 [facility] TARGETED CASE MANAGEMENT [id number] Cinthya TAPIA L 03/25 [place] [facility] [place] [facility] TARGETED CASE MANAGEMENT [id number] Cinthya TAPIA L 03/27 [place] [facility] [place] [facility] TARGETED CASE MANAGEMENT [id number] Cinthya TAPIA L 03/28 [facility] [place] [facility] Outpatient Encounter [id number] Cinthya TAPIA L 03/31 [place] [facility] [place] [facility] Outpatient Encounter [id number] RAY GARCIA 04/02 [facility] IS [facility] Outpatient Encounter [id number] Diagnos is: ICD-10- CM 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
ALBINA SALEEM CIE 04/21 [facility] Outpatient Encounter [id number] 04/21 [facility] Outpatient Encounter [id number] Cinthya TAPIA 04[facility]22 [facility] Outpatient Encounter [id number] AMINAH HORTON 04/22 [facility] Outpatient Encounter [id number] AMINAH HORTON 04/22 [facility] Outpatient Encounter [id number] Cinthya TAPIA 04/23 [facility] Outpatient Encounter [id number] Cinthya TAPIA 04/25 [place] [facility] SELF CARE MNGMENT TRAINING [id number] Diagnos is: ICD-10- CM M54.50 Low back pain, 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
VIVIANA BEDOYA 05/06 [facility] [place] [facility] Outpatient Encounter [id number] 06/15 [place] [facility] [place] [facility] Outpatient Encounter [id number] AGATA DEMPSEY 06/15 [place] [facility] [place] [facility] Outpatient Encounter [id number] 08[place]21 [place] [facility] [place] [facility] OFFICE O/P EST MOD 30 MIN [id number] Diagnos is: ICD-10- CM M13.869 Other specifi ed arthrit is, 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 knee
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
JOSHUA COX 09/08 [facility] Outpatient Encounter [id number] AGATA DEMPSEY 09/11 [facility] IS [facility] OFFICE O/P EST MOD 30 MIN [id number] Diagnos is: ICD-10- CM I10 Essenti al (primar y) hyperte nsion<b r/> FELICITAS VERDUGO 09/29 [facility] Social History Combined list of available smoking, tobacco, and other social history from Department of Defense and [facility] Affairs facilities. Social History Type Response Date Comment Sourc e Tobacco smoking status NHIS VA-TOBACCO FORMER USER 08/22/2023 [facility] History of tobacco use VA-TOBACCO QUIT 15 YRS OR MORE 08/22/2023 [facility] History of tobacco use VA-TOBACCO FORMER USER 10/03/2022 [facility] History of tobacco use MA-TOBACCO QUIT 15 YRS OR MORE 07/03/2022 [facility] History of tobacco use VA-TOBACCO FORMER USER 09/27/2021 [facility] History of tobacco use VA-TOBACCO FORMER USER 07/13/2020 [facility] History of tobacco use MA-TOBACCO QUIT 15 YRS OR MORE 12/09/2019 [facility] History of tobacco use MA-TOBACCO QUIT 15 YRS OR MORE 06/23/2019 [facility] History of tobacco use VA-TOBACCO FORMER USER 06/21/2019 [facility] History of tobacco use VA-TOBACCO FORMER USER 10/06/2018 [facility] History of tobacco use FORMER TOBACCO USER 7Y OR GREATER 09/17/2017 [facility] History of tobacco use TOBACCO SCREEN-UNABLE TO COMPLETE 07/28/2017 [facility] History of tobacco use FORMER TOBACCO USER 7Y OR GREATER 08/29/2016 [facility] History of tobacco use FORMER TOBACCO USER 7Y OR GREATER 11/06/2015 [facility] History of tobacco use TOBACCO NON USE > 7 YEARS 07/04/2015 [facility] History of tobacco use FORMER TOBACCO USER 7Y OR GREATER 08/19/2014 [facility] History of tobacco use FORMER TOBACCO USER 7Y OR GREATER 08/31/2013 [facility] History of tobacco use FORMER TOBACCO USER 7Y OR GREATER 07/02/2006 [facility] Plan of Care List of future care activities from Department of Veterans Affairs facilities. Additional future care activities may be listed in the Assessment and Plan section. Date/Time Care Activity Care Activity Detail Facili ty 12/02/2023 AMBULATORY - NONE AMBULATORY - NONE [facility] 12/09/2023 AMBULATORY - MEDICINE AMBULATORY - MEDICI [facility] 02/26/2024 AMBULATORY - SURGERY AMBULATORY - SURGERY [facility] 09/30/2023 Consult Order PODIATRY OUTPT C ons Tests Superintendent's Choice [facility]
--- OUTSIDE RECORDS SUMMARY | 2023-10-08 05:30 | XMS_ITS | Encounter Summary ---
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 (WNR) MEDICARE (M) BLUE EDICA RE VALUE P Apr 14, 2009 [id number] [phone] [facility] (WNR) MEDICARE ADVANTAGE [facility] (WNR) Apr 14, 2009 DO NOT BILL [id number] [facility] [phone] OSORIO POLLACK PATIENT [facility] (WNR) MEDICARE ADVANTAGE [facility] (WNR) Apr 14, 2016 [id number] [phone] OSORIO POLLACK PATIENT MEDICARE PART D (WNR) MEDICARE (M) PART D Apr 14, 2021 PART D [id number] [facility] OSORIO POLLACK PATIENT Selected Encounter This section includes the information on record at OR for the Encounter. Date/Time Encounter Type Encounter Description Reason Provider Source Apr 22, 2023 08:40 AM Outpatient Encounter ADMIN PAT ACTIVTIES (MASNONCT) AMINAH HORTON Trevon Encounter Template Text not used by [place] Plan of Treatment: Future Appointments (+ 6 months) and Future Tests (+/- 45 days) The Plan of Treatment section includes future care activities for the patient from all [place] treatmentcity emergency hospitalities. This section includes future appointments and future orders which are active, pending or scheduled. Future Appointments This section includes appointments that were scheduled to occur 6 months from the date of the Encounter, up to a maximum of 20 appointments. The data comes from all [place] treatment facilities. Appointment Date/Time Appointment Type Appointme nt Facility Name Apr 25, 2023 01:00 PM [facility]BUL[facility] May 02, 2023 02:00 PM [facility] May 06, 2023 10:15 AM AMBULATORY - MEDICINE [facility] August 22, 2023 09:30 AM [place] [facility] August 22, 2023 11:30 AM [place] [facility] August 22, 2023 12:15 PM [place] [facility] August 29, 2023 11:00 AM [place] [facility] August 29, 2023 11:30 AM [place] [facility] September 01, 2023 11:00 AM [place] [facility] September 09, 2023 12:30 PM [place] [facility] Sep 30, 2023 11:00 AM [facility] Lab Results: +/- 30 days of the encounter This section includes the Chemistry and Hematology Lab Results on record with [place] for the patient. Radiology Reports and Pathology Reports are provided separately, in subsequent sections. Lab Results This section contains the Chemistry/Hematology Results that were resulted 30 days before or 30 daysafter the date of the Encounter. Date/Time Source Result Type Result - Unit Interpretation Reference Range Comment Apr 21, 2023 11:28 AM [facility] BCR-ABL1 PCR Panel Specimen Type: BLOOD Comment: The P210 BCR-ABL1 fusion transcript is NOT detected. Reverse logistics system engineer real-time PCR is performed for the P210 BCR-ABL1 transcript associated with the t(9;22) chromosomal translocation usually seen in chronic myelogenous leukemia. Results are expressed as a percent ratio of BCR-ABL1 and further adjusted to the international scale (IS). For additional information, please refer to http://education. [employer]/faq/FAQ72 (This link is being provided for informational/edu cational purposes only.) Assay sensitivity is at least 4.5-logs below baseline BCR-ABL1 transcript levels but is dependent on quantity and quality of RNA used for testing and the cellularity of the sample. This test was developed and its analytical performance characteristics have been determined by [employer] [place], [place]. It has not been cleared or approved by the FDA. This assay has been validated pursuant to the CLIA regulations and is used for clinical purposes. Jess oByd M.D. Staff Pathologist Test Performed by [facility], [employer] [facility], [address] [place] [address] El Sethi M.D., Ph.D., Director of Laboratories , CLIA [id number] Ordering Provider: AMINAH HORTON Report Released Date/Time: Jan 07, 2023 03:55 PM Reporting Lab: [address] [place] [address] Performing Lab: [address] BCR-ABL1,PCR 0.000 P210 BCR-ABL1 Not Detected BCR-ABL1/ABL %(IS) 0.000 Apr 21, 2023 11:28 AM [facility] COMPREHENSIVE METABOLIC PANEL Specimen Type: PLASMA No comment entered. Ordering Provider: AMINAH HORTON Report Released Date/Time: Jan 07, 2023 03:55 PM Reporting Lab: [address] [place] [address] Performing Lab: [address] [place] [address] CREATININE 1.1 mg/dL 0.7-1.3 UREA NITROGEN 23 mg/dL H 7-20.6 SODIUM 142 meq/L 136-145 POTASSIUM 4.4 meq/L 3.5-5.2 CHLORIDE 107 meq/L 98-109 CO2 25 mmol/L 22-31 CALCIUM 9.2 mg/dL 8.4-10.6 PROTEIN,TOTAL 7.4 g/dL 6.4-8.3 ALBUMIN 4.4 g/dL 2.8-4.5 TOTAL BILIRUBIN 0.40 mg/dL 0.16-1.25 ALKALINE PHOSPHATASE 64 U/L 40-150 GLUCOSE 107 mg/dL H 70-105 ANION GAP 10.0 meq/L 5-18 ALT 8 U/L L 10-55 AST 19 U/L 5-34 EGFR (2020) 66 >90 Apr 21, 2023 11:28 AM [facility] CBC (DIFF) Specimen Type: BLOOD No comment entered. Ordering Provider: AMINAH HORTON Report Released Date/Time: Jan 07, 2023 03:55 PM Reporting Lab: [address] [facility] [address] Performing Lab: [address] [facility] [address] WBC 4.2 10*3/uL 4.2-10.3 RBC 4.34 10*6/uL 4.20-5.80 HEMOGLOBIN 13.2 g/dL 13.0-17.0 HCT 40.6 39.0-50.0 MCV 93.5 fL 80.0-100.0 MCH 30.4 pg 27.0-35.0 MCHC 32.5 g/dL 32.0-36.0 PLT 173 10*3/uL 150-410 MPV 9.5 fL 8.5-12.5 RDW 14.5 11.3-16.5 NEUT % 46.4 39.0-79.0 NEUT # 1.9 10*3/uL 1.6-6.2 LYMPH % 39.0 12.0-45.0 LYMPH # 1.6 10*3/uL 1.1-3.4 MONO % 8.7 2.0-12.0 MONO # 0.4 10*3/uL 0.3-0.9 EOS % 3.9 0.0-6.0 EOS # 0.2 10*3/uL 0.1-0.5 BASO % 1.0 0.0-2.0 BASO # 0.0 10*3/uL 0.0-0.1 IG% 1.0 H 0.0-0.6 IG# 0.0 10*3/uL 0.0-0.5 Encounter Notes: All associated encounter notes This section contains the clinical notes associated to the Encounter. Date/Time Encounter Note(s) Provider Source Apr 22, 2023 08:40 AM PRIMARY CARE NOTE: LOCAL TITLE: TRAVELING CARE COORDINATION (TVC) NOTE STANDARD TITLE: PRIMARY CARE NOTE DATE OF NOTE: APR 22, 2023@08:40 ENTRY DATE: APR 22, 2023@08:40:34 AUTHOR: AMINAH HORTON EXP COSIGNER: URGENCY: STATUS: COMPLETED ASSISTING ON TVCC 01.07.2023FOR ANTICIPATED CARE COORDINATION THAT HAS BEEN REVIEWED AND PROCESSED FOR REQUESTED SERVICES TO RESUME AT REMOTE SENDING/RECEIVING OR AND ORDERING PCP NOTIFIED OF RESULTS AVAILABLE AND VET DIRECTED TO CONTACT HOME [facility] PCP FOR REVIEW OF ORDERING LABS. PCP CAN VIEW NOTED RESULTS AT [facility] Name of lab(s): CBCdiff, CMP, BCR/ABL Gene rearrangement qnt, Collection time: Apr 21, 2023@11:28 Inter-facility Information Remote Facility: [facility] Ordering Provider: SAMAN DEMPSEY/ AMINAH HORTON APRN ADVANCED PRACTICE NURSE PRACTITIONER Signed: 04/22/2023 08:41 AMINAH HORTON [facility]
--- OUTSIDE RECORDS SUMMARY | 2023-10-08 05:30 | XMS_ITS | Encounter Summary ---
Author Name Department of Vetera Affairs Organization Department of Vetera ns Affairs Address [address] [place] [address] Care Team Providers Care Creative Services Manager Name Role Phone KYLEIGH VERDUGO Primary Care [...] Bejarano's Name Patient's Relationship to Policy Bejarano [facility] (WNR) MEDICARE (M) BLUE EDICA RE VALUE P Apr 14, 2009 [id number] [phone] OSORIO POLLACK PATIENT [facility] (WNR) MEDICARE ADVANTAGE [facility] (WN) Apr 14, 2009 DO NOT BILL [id number] [facility] OSORIO POLLACK PATIENT [facility] (WNR) MEDICARE ADVANTAGE [facility] (WNR) Apr 14, 2016 [id number] [phone] OSORIO POLLACK PATIENT MEDICARE PART D ([place]) MEDICARE (M) PART D Apr 14, 2021 PART D [id number] [facility] OSORIO POLLACK PATIENT Selected Encounter This section includes the information on record at [place] for the Encounter. Date/Time Encounter Type Encounter Description Reason Provider Source Jan 31, 2023 05:45 AM Outpatient Encounter ADMIN PAT ACTIVTIES (MASNONCT) MAIKOL TAPIA Trevon Encounter Template Text not used by [place] Plan of Treatment: Future Appointments (+ 6 months) and Future Tests (+/- 45 days) The Plan of Treatment section includes future care activities for the patient from all [place] [facility]. This section includes future appointments and future orders which are active, pending or scheduled. Future Appointments This section includes appointments that were scheduled to occur 6 months from the date of the Encounter, up to a maximum of 20 appointments. The data comes from all [place] treatment facilities. Appointment Date/Time Appointment Type Appointme nt Facility Name Feb 17, 2023 09:30 AM [facility]BULATORY - [facility]ICINE [facility] Mar 19, 2023 09:20 AM [facility] Apr 21, 2023 12:15 PM [facility]IC[facility] Apr 21, 2023 01:00 PM AMBULATORY - SURGERY [facility] Apr 25, 2023 01:00 PM AMBULATORY - REHAB MEDICIN E [facility] May 02, 2023 02:00 PM AMBULATORY - MEDICINE [facility] May 06, 2023 10:15 AM [facility] Social History: Smoking Status (Most current) and Tobacco Use (All prior to encounter date) This section includes the most current, and the historical, smoking and tobacco- related health factors from the [place] facility where the Encounter took place. Current Smoking Status This section includes the most current smoking, or tobacco-related health factor, from the [place] facility where the Encounter took place. Date/Time Current Smoking Status Comment Charlette reardon Oct 03, 2022 09:00 AM VA-TOBACCO FORMER USER [facility] Tobacco Use History This section includes a history of the smoking, or tobacco-related health factors, that were collected on or before the date of the Encounter. The data comes from the [place] facility where the Encounter took place. Date/Time Smoking Status/Tobacco Use Comment F acility Oct 03, 2022 09:00 AM VA-TOBACCO QUIT 15 YRS OR MORE [facility] Sep 27, 2021 02:30 PM VA-TOBACCO FORMER USER [facility] Sep 27, 2021 02:30 PM VA-TOBACCO QUIT 15 YRS OR MORE [facility] Dec 09, 2019 12:30 PM VA-TOBACCO FORMER USER [facility] Dec 09, 2019 12:30 PM VA-TOBACCO QUIT 15 YRS OR MORE [facility] Oct 06, 2018 02:12 PM VA-TOBACCO FORMER USER [facility] Oct 06, 2018 02:12 PM VA-TOBACCO QUIT 15 YRS OR MORE [facility] Sep 17, 2017 02:55 PM FORMER TOBACCO USER 7Y OR GREATE R [facility] August 29, 2016 01:07 PM FORMER TOBACCO USER 7Y OR GREATE R [facility] Nov 06, 2015 01:10 PM FORMER TOBACCO USER 7Y OR GREATE R [facility] August 19, 2014 09:31 AM FORMER TOBACCO USER 7Y OR GREATE R [facility] August 31, 2013 08:06 AM FORMER TOBACCO USER 7Y OR GREATE R [facility] Jul 02, 2006 10:49 AM FORMER TOBACCO USER 7Y OR GREATE R [facility] Encounter Notes: All associated encounter notes This section contains the clinical notes associated to the Encounter. Date/Time Encounter Note(s) Provider Source Jan 31, 2023 05:45 AM WARDROBE ATTENDANT REFER RAL NOTE: LOCAL TITLE: TRAVELING COORDINATOR NOTE STANDARD TITLE: WARDROBE ATTENDANT REFERRAL NOTE DATE OF NOTE: JAN 31, 2023@05:45 ENTRY DATE: JAN 31, 2023@05:45:40 AUTHOR: MAIKOL TAPIA EXP COSIGNER: URGENCY: STATUS: COMPLETED Traveling Vet consult activity for: incoming/outgoing consult care coordination, communication &/or chart review. /anoop/ BREE KING TRAVELING COORDINATOR Signed: 01/31/2023 05:46 MAIKOL TAPIA [facility]
--- OUTSIDE RECORDS SUMMARY | 2023-10-08 05:31 | XMS_ITS | Encounter Summary ---
Author Name Department of Vetera ns Affairs Organization Department of Vetera ns Affairs Address [address] [place] [address] Care Team Providers Care Vice President Client Services Name Role Phone KYLEIGH VERDUGO Primary Care [...] Bejarano's Name Patient's Relationship to Policy Bejarano [facility] (WNR) MEDICARE (M) BLUE EDICA RE VALUE P Apr 14, 2009 [id number] OSORIO POLLACK PATIENT [facility] (WNR) MEDICARE ADVANTAGE [facility] (WNR) Apr 14, 2009 DO NOT BILL [id number] [facility] OSORIO POLLACK PATIENT [facility] (WNR) MEDICARE ADVANTAGE [facility] (WNR) Apr 14, 2016 [id number] [phone] OSORIO POLLACK PATIENT MEDICARE PART D (WNR) MEDICARE (M) PART D Apr 14, 2021 PART D [id number] [facility] OSORIO POLLACK PATIENT Selected Encounter This section includes the information on record at [place] for the Encounter. Date/Time Encounter Type Encounter Description Reason Provider Source Apr 22, 2023 08:40 AM Outpatient Encounter ADMIN PAT ACTIVTIES (MASNONCT) AMINAH HORTON Trevon Encounter Template Text not used by [place] Plan of Treatment: Future Appointments (+ 6 months) and Future Tests (+/- 45 days) The Plan of Treatment section includes future care activities for the patient from all [place] [facility]. This section includes future appointments and future orders which are active, pending or scheduled. Future Appointments This section includes appointments that were scheduled to occur 6 months from the date of the Encounter, up to a maximum of 20 appointments. The data comes from all [place] treatment facilities. Appointment Date/Time Appointment Type Appointme nt Facility Name Apr 25, 2023 01:00 PM AMBULATORY - REHAB MEDICIN E [facility] May 02, 2023 02:00 PM [facility] May 06, 2023 10:15 AM AMBULATORY - MEDICINE [facility] August 22, 2023 09:30 AM [place] [facility] August 22, 2023 11:30 AM [place] [facility] August 22, 2023 12:15 PM [place] - [place] [facility] August 29, 2023 11:00 AM [place]IC[place] [facility] August 29, 2023 11:30 AM [place]IC[place] [facility] September 01, 2023 11:00 AM [place]IC[place] [facility] September 09, 2023 12:30 PM [place] [facility] Sep 30, 2023 11:00 AM [facility] Lab Results: +/- 30 days of the encounter This section includes the Chemistry and Hematology Lab Results on record with [place] for the patient. Radiology Reports and Pathology Reports are provided separately, in subsequent sections. Lab Results This section contains the Chemistry/Hematology Results that were resulted 30 days before or 30 daysafter the date of the Encounter. Date/Time Source Result Type Result - Unit Interpretation Reference Range Comment Apr 21, 2023 11:28 AM [facility] BCR-ABL1 PCR Panel Specimen Type: BLOOD Comment: The P210 BCR-ABL1 fusion transcript is NOT detected. Reverse installment dealer real-time PCR is performed for the P210 BCR-ABL1 transcript associated with the t(9;22) chromosomal translocation usually seen in chronic myelogenous leukemia. Results are expressed as a percent ratio of BCR-ABL1 and further adjusted to the international scale (IS). For additional information, please refer to http://education. [employer]/faq/FAQ72 (This link is being provided for informational/edu cational purposes only.) Assay sensitivity is at least 4.5-logs below baseline BCR-ABL1 transcript levels but is dependent on quantity and quality of RNA used for testing and the cellularity of the sample. This test was developed and its analytical performance characteristics have been determined by [employer] [place], [place]. It has not been cleared or approved by the FDA. This assay has been validated pursuant to the CLIA regulations and is used for clinical purposes. Jess Boyd M.D. Staff Pathologist Test Performed by [facility], [facility], [address] [place] [address] El Sethi M.D., Ph.D., Director of Laboratories , CLIA [id number] Ordering Provider: AMINAH HORTON Report Released Date/Time: Jan 07, 2023 03:55 PM Reporting Lab: [address] [place] [address] Performing Lab: [address] BCR-ABL1,PCR 0.000 P210 BCR-ABL1 Not Detected BCR-ABL1/ABL %(IS) 0.000 Apr 21, 2023 11:28 AM [facility] COMPREHENSIVE METABOLIC PANEL Specimen Type: PLASMA No comment entered. Ordering Provider: AMINAH HORTON Report Released Date/Time: Jan 07, 2023 03:55 PM Reporting Lab: [address] [place] [address] Performing Lab: [address] [place] [address] CREATININE 1.1 mg/dL 0.7-1.3 UREA NITROGEN 23 [...] 66 >90 Apr 21, 2023 11:28 AM [facility] CBC (DIFF) Specimen Type: BLOOD No comment entered. Ordering Provider: AMINAH HORTON Report Released Date/Time: Jan 07, 2023 03:55 PM Reporting Lab: [address] [facility] [address] Performing Lab: [address] [facility] [address] WBC 4.2 10*3/uL 4.2-10.3 RBC 4.34 10*6/uL [...] Encounter Note(s) Provider Source Apr 22, 2023 08:43 AM ADMINISTRATIVE NOT E: LOCAL TITLE: TEST RESULTS NOTIFICATION LETTER - STANDARD MAIL STANDARD TITLE: ADMINISTRATIVE NOTE DATE OF NOTE: APR 22, 2023@08:43 ENTRY DATE: APR 22, 2023@08:43:09 AUTHOR: AMINAH HORTON EXP COSIGNER: URGENCY: STATUS: COMPLETED [facility] [place] [address] [place] [address] Osorio Pollack [address] [place], [place] [address] APR 22, 2023 Dear Osorio Pollack: RE: Test Results are available to ordering remote [place] provider for review. Please contact your home [place] to discuss results and plan of care as indicated. Collection time: Apr 21, 2023@11:28 Remote Facility: [facility] Ordering Provider: SAMAN DEMPSEY Sincerely, AMINAH HORTON APRN ADVANCED PRACTICE NURSE PRACTITIONER Did you know the [facility] Clinical Contact Center (CCC) is available for your urgent and episodic health care needs? You can reach the [facility] by calling the toll free number 04/11 or utilizing the [place] Radico francisco Friday through Friday, [phone]. The automated system is also available 04/11 at . *Remember: When your provider orders lab tests for you, a lab appointment is no longer necessary! Simply visit the lab during normal business hours, at your convenience. AMINAH HORTON [facility]
--- OUTSIDE RECORDS SUMMARY | 2023-10-08 05:31 | XMS_ITS | Encounter Summary ---
Author Name Department of Vetera Affairs Organization Department of Vetera ns Affairs Address [address] [place] [address] Care Team Providers Care Project Engineering Director Name Role Phone KYLEIGH VERDUGO Primary Care [...] Bejarano's Name Patient's Relationship to Policy Bejarano [facility] (WNR) MEDICARE (M) BLUE EDICA RE VALUE P Apr 14, 2009 [id number] OSORIO POLLACK PATIENT [facility] (WNR) MEDICARE ADVANTAGE [facility] (WN) Apr 14, 2009 DO NOT BILL [id number] [facility] OSORIO POLLACK PATIENT [facility] (WNR) MEDICARE ADVANTAGE [facility] (WNR) Apr 14, 2016 [id number] [phone] OSORIO POLLACK PATIENT MEDICARE PART D (WN) MEDICARE (M) PART D Apr 14, 2021 PART D [id number] [facility] OSORIO POLLACK PATIENT Selected Encounter This section includes the information on record at [place] for the Encounter. Date/Time Encounter Type Encounter Description Reason Provider Source Mar 25, 2023 08:22 AM TARGETED CASE MANAGEMENT ADMIN PAT ACTIVTIES (MASNONCT) MAIKOL TAPIA Trevon Encounter Template Text not used by [place] Plan of Treatment: Future Appointments (+ 6 months) and Future Tests (+/- 45 days) The Plan of Treatment section includes future care activities for the patient from all [place] [facility]. This section includes future appointments and future orders which are active, pending or scheduled. Future Appointments This section includes appointments that were scheduled to occur 6 months from the date of the Encounter, up to a maximum of 20 appointments. The data comes from all [place] treatment facilities. Appointment Date/Time Appointment Type Appointme nt Facility Name Apr 21, 2023 12:15 PM AMBULATORY - [facility]INE [facility] Apr 21, 2023 01:00 PM AMBULATORY - SURGERY [facility] Apr 25, 2023 01:00 PM AMBULATORY - REHAB MEDICIN [facility] May 02, 2023 02:00 PM [facility] May 06, 2023 10:15 AM [facility] August 22, 2023 09:30 AM [facility] August 22, 2023 11:30 AM [facility] August 22, 2023 12:15 PM [facility] August 29, 2023 11:00 AM [facility] August 29, 2023 11:30 AM [facility] September 01, 2023 11:00 AM [facility] September 09, 2023 12:30 PM [facility] Lab Results: +/- 30 days of the encounter This section includes the Chemistry and Hematology Lab Results on record with [place] for the patient. Radiology Reports and Pathology Reports are provided separately, in subsequent sections. Lab Results This section contains the Chemistry/Hematology Results that were resulted 30 days before or 30 daysafter the date of the Encounter. Date/Time Source Result Type Result - Unit Interpretation Reference Range Comment Apr 21, 2023 11:28 AM ED [facility] BCR-ABL1 PCR Panel Specimen Type: BLOOD Comment: The P210 BCR-ABL1 fusion transcript is NOT detected. Reverse responder real-time PCR is performed for the P210 BCR-ABL1 transcript associated with the t(9;22) chromosomal translocation usually seen in chronic myelogenous leukemia. Results are expressed as a percent ratio of BCR-ABL1 and further adjusted to the international scale (IS). For additional information, please refer to http://education. [facility]/faq/FAQ72 (This link is being provided for informational/edu cational purposes only.) Assay sensitivity is at least 4.5-logs below baseline BCR-ABL1 transcript levels but is dependent on quantity and quality of RNA used for testing and the cellularity of the sample. This test was developed and its analytical performance characteristics have been determined by [employer] [place], [place]. It has not been cleared or approved by the FDA. This assay has been validated pursuant to the CLIA regulations and is used for clinical purposes. Jess Boyd M.D. Staff Pathologist Test Performed by [facility], [facility], [address] [place] [address] El Sethi M.D., Ph.D., Director of Laboratories , CLIA [id number] Ordering Provider: AMINAH HORTON Report Released Date/Time: Jan 07, 2023 03:55 PM Reporting Lab: [place] [address] [place] [address] Performing Lab: [address] BCR-ABL1,PCR 0.000 P210 BCR-ABL1 Not Detected BCR-ABL1/ABL %(IS) 0.000 Apr 21, 2023 11:28 AM ED [facility] COMPREHENSIVE METABOLIC PANEL Specimen Type: PLASMA No comment entered. Ordering Provider: AMINAH HORTON Report Released Date/Time: Jan 07, 2023 03:55 PM Reporting Lab: [address] [place] [address] Performing Lab: [address] [place] [address] CREATININE 1.1 mg/dL 0.7-1.3 UREA NITROGEN 23 [...] 66 >90 Apr 21, 2023 11:28 AM ED [facility] CBC (DIFF) Specimen Type: BLOOD No comment entered. Ordering Provider: AMINAH HORTON Report Released Date/Time: Jan 07, 2023 03:55 PM Reporting Lab: [address] [facility] [address] Performing Lab: [address] [facility] [address] WBC 4.2 10*3/uL 4.2-10.3 RBC 4.34 10*6/uL [...] 1.0 H 0.0-0.6 IG# 0.0 10*3/uL 0.0-0.5 Social History: Smoking Status (Most current) and Tobacco Use (All prior to encounter date) This section includes the most current, and the historical, smoking and tobacco- related health factors from the [facility] where the Encounter took place. Current Smoking Status This section includes the most current smoking, or tobacco-related health factor, from the [place] facility where the Encounter took place. Date/Time Current Smoking Status Comment Facil ity Oct 03, 2022 09:00 AM VA-TOBACCO FORMER USER [facility] Tobacco Use History This section includes a history of the smoking, or tobacco-related health factors, that were collected on or before the date of the Encounter. The data comes from the [place] facility where the Encounter took place. Date/Time Smoking Status/Tobacco Use Comment F acility Oct 03, 2022 09:00 AM VA-TOBACCO QUIT 15 YRS OR MORE [facility] Sep 27, 2021 02:30 PM VA-TOBACCO FORMER USER [facility] Sep 27, 2021 02:30 PM VA-TOBACCO QUIT 15 YRS OR MORE [facility] Dec 09, 2019 12:30 PM VA-TOBACCO FORMER USER [facility] Dec 09, 2019 12:30 PM VA-TOBACCO QUIT 15 YRS OR MORE [facility] Oct 06, 2018 02:12 PM VA-TOBACCO FORMER USER [facility] Oct 06, 2018 02:12 PM VA-TOBACCO QUIT 15 YRS OR MORE [facility] Sep 17, 2017 02:55 PM FORMER TOBACCO USER 7Y OR GREATE R [facility] August 29, 2016 01:07 PM FORMER TOBACCO USER 7Y OR GREATE R [facility] Nov 06, 2015 01:10 PM FORMER TOBACCO USER 7Y OR GREATE R [facility] August 19, 2014 09:31 AM FORMER TOBACCO USER 7Y OR GREATE R [facility] August 31, 2013 08:06 AM FORMER TOBACCO USER 7Y OR GREATE R [facility] Jul 02, 2006 10:49 AM FORMER TOBACCO USER 7Y OR GREATE R [facility] Encounter Notes: All associated encounter notes This section contains the clinical notes associated to the Encounter. Date/Time Encounter Note(s) Provider Source Mar 25, 2023 08:22 AM MANAGER MANAGING REFER RAL NOTE: LOCAL TITLE: TRAVELING COORDINATOR NOTE STANDARD TITLE: MANAGER MANAGING REFERRAL NOTE DATE OF NOTE: MAR 25, 2023@08:22 ENTRY DATE: MAR 25, 2023@08:22:49 AUTHOR: MAIKOL TAPIA EXP COSIGNER: URGENCY: STATUS: COMPLETED Traveling Vet consult activity for: incoming/outgoing consult care coordination, communication &/or chart review. /anoop/ BREE KING TRAVELING COORDINATOR Signed: 03/25/2023 08:23 MAIKOL TAPIA [facility]
--- OUTSIDE RECORDS SUMMARY | 2023-10-08 05:32 | XMS_ITS | Encounter Summary ---
Author Name Department of Vetera Affairs Organization Department of Vetera ns Affairs Address [address] [place] [address] Care Team Providers Care Timekeeper Supervisor Name Role Phone KYLEIGH VERDUGO Primary Care [...] Bejarano's Name Patient's Relationship to Policy Bejarano [facility] (WNR) MEDICARE (M) BLUE EDICA RE VALUE P Apr 14, 2009 [id number] [phone] OSORIO POLLACK PATIENT [facility] (WNR) MEDICARE ADVANTAGE [facility] (WN) Apr 14, 2009 DO NOT BILL [id number] [facility] OSORIO POLLACK PATIENT [facility] (WNR) MEDICARE AD[facility]ANTAGE [facility] ([facility]) Apr 14, 2016 [id number] [phone] OSORIO POLLACK PATIENT MEDICARE PART D (WN) MEDICARE (M) PART D Apr 14, 2021 PART D [id number] [facility] OSORIO POLLACK PATIENT Selected Encounter This section includes the information on record at [place] for the Encounter. Date/Time Encounter Type Encounter Description Reason Provider Source Mar 27, 2023 03:48 PM TARGETED CASE MANAGEMENT ADMIN PAT ACTIVTIES (MASNONCT) MAIKOL TAPIA Trevon Encounter Template Text not used by [place] Plan of Treatment: Future Appointments (+ 6 months) and Future Tests (+/- 45 days) The Plan of Treatment section includes future care activities for the patient from all [place] [facility]. This section includes future appointments and future orders which are active, pending or scheduled. Future Appointments This section includes appointments that were scheduled to occur 6 months from the date of the Encounter, up to a maximum of 20 appointments. The data comes from all [place] treatment facilities. Appointment Date/Time Appointment Type Appointme nt Facility Name Apr 21, 2023 12:15 PM [facility] Apr 21, 2023 01:00 PM [facility] - SURGERY [facility] Apr 25, 2023 01:00 PM AMBULATORY - REHAB MEDICIN E [facility] May 02, 2023 02:00 PM [facility] May 06, 2023 10:15 AM [facility] August 22, 2023 09:30 AM [facility] August 22, 2023 11:30 AM [facility] August 22, 2023 12:15 PM [facility] August 29, 2023 11:00 AM [facility] August 29, 2023 11:30 AM [facility] September 01, 2023 11:00 AM [facility] September 09, 2023 12:30 PM [facility] Lab Results: +/- 30 days of the encounter This section includes the Chemistry and Hematology Lab Results on record with [place] for the patient. Radiology Reports and Pathology Reports are provided separately, in subsequent sections. Lab Results This section contains the Chemistry/Hematology Results that were resulted 30 days before or 30 daysafter the date of the Encounter. Date/Time Source Result Type Result - Unit Interpretation Reference Range Comment Apr 21, 2023 11:28 AM [facility] BCR-ABL1 PCR Panel Specimen Type: BLOOD Comment: The P210 BCR-ABL1 fusion transcript is NOT detected. Reverse middle school volleyball coach real-time PCR is performed for the P210 BCR-ABL1 transcript associated with the t(9;22) chromosomal translocation usually seen in chronic myelogenous leukemia. Results are expressed as a percent ratio of BCR-ABL1 and further adjusted to the international scale (IS). For additional information, please refer to http://education. [employer]/faq/FAQ72 (This link is being provided for informational/edu cational purposes only.) Assay sensitivity is at least 4.5-logs below baseline BCR-ABL1 transcript levels but is dependent on quantity and quality of RNA used for testing and the cellularity of the sample. This test was developed and its analytical performance characteristics have been determined by [employer] [place], [place]. It has not been cleared or approved by the FDA. This assay has been validated pursuant to the CLIA regulations and is used for clinical purposes. Jess Boyd M.D. Staff Pathologist Test Performed by [facility], [employer] [facility], [address] [place] [address] El Sethi M.D., Ph.D., Director of Laboratories , CLIA [id number] Ordering Provider: AMINAH HORTON Report Released Date/Time: Jan 07, 2023 03:55 PM Reporting Lab: [place] [address] [place] [address] Performing Lab: [address] BCR-ABL1,PCR 0.000 P210 BCR-ABL1 Not Detected BCR-ABL1/ABL %(IS) 0.000 Apr 21, 2023 11:28 AM [facility] COMPREHENSIVE METABOLIC PANEL Specimen Type: PLASMA No comment entered. Ordering Provider: AMINAH HORTON Report Released Date/Time: Jan 07, 2023 03:55 PM Reporting Lab: [address] [place] [address] Performing Lab: [address] [place] [address] CREATININE 1.1 mg/dL 0.7-1.3 UREA NITROGEN 23 [...] 66 >90 Apr 21, 2023 11:28 AM [facility] CBC (DIFF) Specimen Type: BLOOD No comment entered. Ordering Provider: AMINAH HORTON Report Released Date/Time: Jan 07, 2023 03:55 PM Reporting Lab: [address] [facility] [address] Performing Lab: [address] [facility] [address] WBC 4.2 10*3/uL 4.2-10.3 RBC 4.34 10*6/uL [...] and tobacco- related health factors from the [facility] where the Encounter took place. Current Smoking Status This section includes the most current smoking, or tobacco-related health factor, from the [place] facility where the Encounter took place. Date/Time Current Smoking Status Comment Facil ity Oct 03, 2022 09:00 AM VA-TOBACCO FORMER USER [facility] Tobacco Use History This section includes a history of the smoking, or tobacco-related health factors, that were collected on or before the date of the Encounter. The data comes from the [place] facility where the Encounter took place. Date/Time Smoking Status/Tobacco Use Comment F acility Oct 03, 2022 09:00 AM VA-TOBACCO QUIT 15 YRS OR MORE [facility] Sep 27, 2021 02:30 PM VA-TOBACCO FORMER USER [facility] Sep 27, 2021 02:30 PM VA-TOBACCO QUIT 15 YRS OR MORE [facility] Dec 09, 2019 12:30 PM VA-TOBACCO FORMER USER [facility] Dec 09, 2019 12:30 PM VA-TOBACCO QUIT 15 YRS OR MORE [facility] Oct 06, 2018 02:12 PM VA-TOBACCO FORMER USER [facility] Oct 06, 2018 02:12 PM VA-TOBACCO QUIT 15 YRS OR MORE [facility] Sep 17, 2017 02:55 PM FORMER TOBACCO USER 7Y OR GREATE R [facility] August 29, 2016 01:07 PM FORMER TOBACCO USER 7Y OR GREATE R [facility] Nov 06, 2015 01:10 PM FORMER TOBACCO USER 7Y OR GREATE R [facility] August 19, 2014 09:31 AM FORMER TOBACCO USER 7Y OR GREATE R [facility] August 31, 2013 08:06 AM FORMER TOBACCO USER 7Y OR GREATE R [facility] Jul 02, 2006 10:49 AM FORMER TOBACCO USER 7Y OR GREATE R [facility] Encounter Notes: All associated encounter notes This section contains the clinical notes associated to the Encounter. Date/Time Encounter Note(s) Provider Source Mar 27, 2023 03:49 PM PIANO MOVER REFER RAL NOTE: LOCAL TITLE: TRAVELING COORDINATOR NOTE STANDARD TITLE: PIANO MOVER REFERRAL NOTE DATE OF NOTE: MAR 27, 2023@15:49 ENTRY DATE: MAR 27, 2023@15:49:20 AUTHOR: MAIKOL TAPIA EXP COSIGNER: URGENCY: STATUS: COMPLETED Traveling Vet consult activity for: incoming/outgoing consult care coordination, communication &/or chart review. /anoop/ BREE KING TRAVELING COORDINATOR Signed: 03/27/2023 15:49 MAIKOL TAPIA [facility]
--- OUTSIDE RECORDS SUMMARY | 2023-10-08 05:32 | XMS_ITS | Encounter Summary ---
Author Name Department of Vetera Affairs Organization Department of Vetera ns Affairs Address [address] [place] [address] Care Team Providers Care Bee Producer Name Role Phone KYLEIGH VERDUGO Primary Care [...] Name Patient's Relationship to Policy Bejarano [facility] (WNR) MEDICARE (M) BLUE EDICA RE VALUE P Apr 14, 2009 [id number] OSORIO POLLACK PATIENT [facility] (WNR) MEDICARE ADVANTAGE [facility] (WNR) Apr 14, 2009 DO NOT BILL [id number] [facility] OSORIO POLLACK PATIENT [facility] (WNR) MEDICARE ADVANTAGE [facility] (WNR) Apr 14, 2016 [id number] [phone] OSORIO POLLACK PATIENT MEDICARE PART D (WNR) MEDICARE (M) PART D Apr 14, 2021 PART D [id number] [facility] OSORIO POLLACK PATIENT Selected Encounter This section includes the information on record at [place] for the Encounter. Date/Time Encounter Type Encounter Description Reason Provider Source Apr 22, 2023 07:50 AM Outpatient Encounter ADMIN PAT ACTIVTIES (MASNONCT) MAIKOL TAPIA Trevon Encounter Template Text not used by [place] Plan of Treatment: Future Appointments (+ 6 months) and Future Tests (+/- 45 days) The Plan of Treatment section includes future care activities for the patient from all [place] [facility]. This section includes future appointments and future orders which are active, pending or scheduled. Future Appointments This section includes appointments that were scheduled to occur 6 months from the date of the Encounter, up to a maximum of 20 appointments. The data comes from all [place] treatment facilities. Appointment Date/Time Appointment Type Appointme nt Facility Name Apr 25, 2023 01:00 PM AMBULATORY - [facility]AB [facility] May 02, 2023 02:00 PM [facility] May 06, 2023 10:15 AM [facility] MEDICINE [facility] August 22, 2023 09:30 AM [place] [facility] August 22, 2023 11:30 AM [place] [facility] August 22, 2023 12:15 PM [place] [facility] August 29, 2023 11:00 AM [place] [facility] August 29, 2023 11:30 AM [place] [facility] September 01, 2023 11:00 AM [place] [facility] September 09, 2023 12:30 PM [place] [facility] Sep 30, 2023 11:00 AM [facility] Lab Results: +/- 30 days of the encounter This section includes the Chemistry and Hematology Lab Results on record with [place] for the patient. Radiology Reports and Pathology Reports are provided separately, in subsequent sections. Lab Results This section contains the Chemistry/Hematology Results that were resulted 30 days before or 30 daysafter the date of the Encounter. Date/Time Source Result Type Result - Unit Interpretation Reference Range Comment Apr 21, 2023 11:28 AM [facility] BCR-ABL1 PCR Panel Specimen Type: BLOOD Comment: The P210 BCR-ABL1 fusion transcript is NOT detected. Reverse hose tubing backer real-time PCR is performed for the P210 BCR-ABL1 transcript associated with the t(9;22) chromosomal translocation usually seen in chronic myelogenous leukemia. Results are expressed as a percent ratio of BCR-ABL1 and further adjusted to the international scale (IS). For additional information, please refer to http://education. Schrodinger/faq/FAQ72 (This link is being provided for informational/edu cational purposes only.) Assay sensitivity is at least 4.5-logs below baseline BCR-ABL1 transcript levels but is dependent on quantity and quality of RNA used for testing and the cellularity of the sample. This test was developed and its analytical performance characteristics have been determined by [facility] [place], [place]. It has not been cleared or approved by the FDA. This assay has been validated pursuant to the CLIA regulations and is used for clinical purposes. Jess Boyd M.D. Staff Pathologist Test Performed by [facility], [facility], [address] [place] [address] El Sethi M.D., Ph.D., Director of Laboratories , CLIA [id number] Ordering Provider: AMINAH HORTON Report Released Date/Time: Jan 07, 2023 03:55 PM Reporting Lab: [address] [place] [address] Performing Lab: [address] BCR-ABL1,PCR 0.000 P210 BCR-ABL1 Not Detected BCR-ABL1/ABL %(IS) 0.000 Apr 21, 2023 11:28 AM [facility] COMPREHENSIVE METABOLIC PANEL Specimen Type: PLASMA No comment entered. Ordering Provider: AMINAH HORTON Report Released Date/Time: Jan 07, 2023 03:55 PM Reporting Lab: [address] [place] [address] Performing Lab: [address] [place] [place] [address] CREATININE 1.1 mg/dL 0.7-1.3 UREA NITROGEN 23 [...] Apr 21, 2023 11:28 AM [facility] CBC (DIFF) Specimen Type: BLOOD No comment entered. Ordering Provider: AMINAH HORTON Report Released Date/Time: Jan 07, 2023 03:55 PM Reporting Lab: [address] [facility] [address] Performing Lab: [address] [facility] [address] WBC 4.2 10*3/uL 4.2-10.3 RBC 4.34 10*6/uL [...] and tobacco- related health factors from the [facility] where the Encounter took place. Current Smoking Status This section includes the most current smoking, or tobacco-related health factor, from the [place] facility where the Encounter took place. Date/Time Current Smoking Status Comment Facil ity Oct 03, 2022 09:00 AM VA-TOBACCO FORMER USER [facility] Tobacco Use History This section includes a history of the smoking, or tobacco-related health factors, that were collected on or before the date of the Encounter. The data comes from the [place] facility where the Encounter took place. Date/Time Smoking Status/Tobacco Use Comment F acility Oct 03, 2022 09:00 AM VA-TOBACCO QUIT 15 YRS OR MORE [facility] Sep 27, 2021 02:30 PM VA-TOBACCO FORMER USER [facility] Sep 27, 2021 02:30 PM VA-TOBACCO QUIT 15 YRS OR MORE [facility] Dec 09, 2019 12:30 PM VA-TOBACCO FORMER USER [facility] Dec 09, 2019 12:30 PM VA-TOBACCO QUIT 15 YRS OR MORE [facility] Oct 06, 2018 02:12 PM VA-TOBACCO FORMER USER [facility] Oct 06, 2018 02:12 PM VA-TOBACCO QUIT 15 YRS OR MORE [facility] Sep 17, 2017 02:55 PM FORMER TOBACCO USER 7Y OR GREATE R [facility] August 29, 2016 01:07 PM FORMER TOBACCO USER 7Y OR GREATE R [facility] Nov 06, 2015 01:10 PM FORMER TOBACCO USER 7Y OR GREATE R [facility] August 19, 2014 09:31 AM FORMER TOBACCO USER 7Y OR GREATE R [facility] August 31, 2013 08:06 AM FORMER TOBACCO USER 7Y OR GREATE R [facility] Jul 02, 2006 10:49 AM FORMER TOBACCO USER 7Y OR GREATE R [facility] Encounter Notes: All associated encounter notes This section contains the clinical notes associated to the Encounter. Date/Time Encounter Note(s) Provider Source Apr 22, 2023 07:50 AM TOBACCO PRIMER MACHINE OPERATOR REFER RAL NOTE: LOCAL TITLE: TRAVELING COORDINATOR NOTE STANDARD TITLE: TOBACCO PRIMER MACHINE OPERATOR REFERRAL NOTE DATE OF NOTE: APR 22, 2023@07:50 ENTRY DATE: APR 22, 2023@07:50:25 AUTHOR: MAIKOL TAPIA EXP COSIGNER: URGENCY: STATUS: COMPLETED Traveling Vet consult activity for: incoming/outgoing consult care coordination, communication &/or chart review. /anoop/ BREE KING TRAVELING COORDINATOR Signed: 04/22/2023 07:50 MAIKOL TAPIA [facility]
--- OUTSIDE RECORDS SUMMARY | 2023-10-08 05:32 | XMS_ITS | Encounter Summary ---
Author Name Department of Vetera Affairs Organization Department of Vetera ns Affairs Address [address] [place] [address] Care Team Providers Care Fisher Lobster Name Role Phone KYLEIGH VERDUGO Primary Care [...] Bejarano's Name Patient's Relationship to Policy Bejarano [facility] (WNR) MEDICARE (M) BLUE EDICA RE VALUE P Apr 14, 2009 [id number] [phone] OSORIO POLLACK PATIENT [facility] (WNR) MEDICARE ADVANTAGE [facility] (WN) Apr 14, 2009 DO NOT BILL [id number] [facility] [phone] OSORIO POLLACK PATIENT [facility] (WNR) MEDICARE ADVANTAGE [facility] (WNR) Apr 14, 2016 [id number] [phone] OSORIO POLLACK PATIENT MEDICARE PART D (WN) MEDICARE (M) PART D Apr 14, 2021 PART D [id number] [facility] OSORIO POLLACK PATIENT Selected Encounter This section includes the information on record at [place] for the Encounter. Date/Time Encounter Type Encounter Description Reason Provider Source Apr 04, 2023 03:14 PM Outpatient Encounter ADMIN PAT ACTIVTIES (MASNONCT) MAIKOL TAPIA Trevon Encounter Template Text not used by [place] Plan of Treatment: Future Appointments (+ 6 months) and Future Tests (+/- 45 days) The Plan of Treatment section includes future care activities for the patient from all [place] [facility]. This section includes future appointments and future orders which are active, pending or scheduled. Future Appointments This section includes appointments that were scheduled to occur 6 months from the date of the Encounter, up to a maximum of 20 appointments. The data comes from all [place] treatment facilities. Appointment Date/Time Appointment Type Appointme nt Facility Name Apr 21, 2023 12:15 PM [facility]UL[facility]ORY [facility] Apr 21, 2023 01:00 PM [facility] SURGERY [facility] Apr 25, 2023 01:00 PM AMBULATORY - [facility] May 02, 2023 02:00 PM [place] [facility] May 06, 2023 10:15 AM [facility]IC[facility] August 22, 2023 09:30 AM [place] [facility] August 22, 2023 11:30 AM [place] [facility] August 22, 2023 12:15 PM [place] [facility] August 29, 2023 11:00 AM [place] [facility] August 29, 2023 11:30 AM [place] [facility] September 01, 2023 11:00 AM [place] [facility] September 09, 2023 12:30 PM [place] [facility] Sep 30, 2023 11:00 AM [place] [facility] Lab Results: +/- 30 days of the encounter This section includes the Chemistry and Hematology Lab Results on record with [place] for the patient. Radiology Reports and Pathology Reports are provided separately, in subsequent sections. Lab Results This section contains the Chemistry/Hematology Results that were resulted 30 days before or 30 daysafter the date of the Encounter. Date/Time Source Result Type Result - Unit Interpretation Reference Range Comment Apr 21, 2023 11:28 AM [facility] BCR-ABL1 PCR Panel Specimen Type: BLOOD Comment: The P210 BCR-ABL1 fusion transcript is NOT detected. Reverse associate genetics professor real-time PCR is performed for the P210 BCR-ABL1 transcript associated with the t(9;22) chromosomal translocation usually seen in chronic myelogenous leukemia. Results are expressed as a percent ratio of BCR-ABL1 and further adjusted to the international scale (IS). For additional information, please refer to http://education. Soteria Systems. DialMyApp/faq/FAQ72 (This link is being provided for informational/edu cational purposes only.) Assay sensitivity is at least 4.5-logs below baseline BCR-ABL1 transcript levels but is dependent on quantity and quality of RNA used for testing and the cellularity of the sample. This test was developed and its analytical performance characteristics have been determined by [facility] [facility] [place], [place]. It has not been cleared or approved by the FDA. This assay has been validated pursuant to the CLIA regulations and is used for clinical purposes. Jess Boyd M.D. Staff Pathologist Test Performed by [facility], [facility], [address] [place] [address] El Sethi M.D., Ph.D., Director of Laboratories , CLIA [id number] Ordering Provider: AMINAH HORTON Report Released Date/Time: Jan 07, 2023 03:55 PM Reporting Lab: [address] [place] [address] Performing Lab: [address] BCR-ABL1,PCR 0.000 P210 BCR-ABL1 Not Detected BCR-ABL1/ABL %(IS) 0.000 Apr 21, 2023 11:28 AM [facility] CBC (DIFF) Specimen Type: BLOOD No comment entered. Ordering Provider: AMINAH HORTON Report Released Date/Time: Jan 07, 2023 03:55 PM Reporting Lab: [address] [place] [address] Performing Lab: [address] [place] [address] WBC 4.2 10*3/uL 4.2-10.3 RBC 4.34 10*6/uL [...] 1.0 H 0.0-0.6 IG# 0.0 10*3/uL 0.0-0.5 Apr 21, 2023 11:28 AM [facility] COMPREHENSIVE METABOLIC PANEL Specimen Type: PLASMA No comment entered. Ordering Provider: AMINAH HORTON Report Released Date/Time: Jan 07, 2023 03:55 PM Reporting Lab: [address] [facility] [address] Performing Lab: [address] [facility] [address] CREATININE 1.1 mg/dL 0.7-1.3 UREA NITROGEN 23 [...] 19 U/L 5-34 EGFR (2020) 66 >90 Vital Signs: All taken on the encounter date This section contains inpatient and outpatient Vital Signs collected on the date of the Encounter. Date/Time Temperature Pulse Blood Pressure Respiratory Rate SP02 Pain Height Weight Body Mass Index Source Apr 04, 2023 12:21 PM 213 lb 28 [place] [facility] Social History: Smoking Status (Most current) and Tobacco Use (All prior to encounter date) This section includes the most current, and the historical, smoking and tobacco- related health factors from the [place] facility where the Encounter took place. Current Smoking Status This section includes the most current smoking, or tobacco-related health factor, from the [place] facility where the Encounter took place. Date/Time Current Smoking Status Comment Facil ity Oct 03, 2022 09:00 AM VA-TOBACCO FORMER USER [facility] Tobacco Use History This section includes a history of the smoking, or tobacco-related health factors, that were collected on or before the date of the Encounter. The data comes from the [place] facility where the Encounter took place. Date/Time Smoking Status/Tobacco Use Comment F acility Oct 03, 2022 09:00 AM VA-TOBACCO QUIT 15 YRS OR MORE [facility] Sep 27, 2021 02:30 PM VA-TOBACCO FORMER USER [facility] Sep 27, 2021 02:30 PM VA-TOBACCO QUIT 15 YRS OR MORE [facility] Dec 09, 2019 12:30 PM VA-TOBACCO FORMER USER [facility] Dec 09, 2019 12:30 PM VA-TOBACCO QUIT 15 YRS OR MORE [facility] Oct 06, 2018 02:12 PM VA-TOBACCO FORMER USER [facility] Oct 06, 2018 02:12 PM VA-TOBACCO QUIT 15 YRS OR MORE [facility] Sep 17, 2017 02:55 PM FORMER TOBACCO USER 7Y OR GREATE R [facility] August 29, 2016 01:07 PM FORMER TOBACCO USER 7Y OR GREATE R [facility] Nov 06, 2015 01:10 PM FORMER TOBACCO USER 7Y OR GREATE R [facility] August 19, 2014 09:31 AM FORMER TOBACCO USER 7Y OR GREATE R [facility] August 31, 2013 08:06 AM FORMER TOBACCO USER 7Y OR GREATE R [facility] Jul 02, 2006 10:49 AM FORMER TOBACCO USER 7Y OR GREATE R [facility] Encounter Notes: All associated encounter notes This section contains the clinical notes associated to the Encounter. Date/Time Encounter Note(s) Provider Source Apr 04, 2023 03:15 PM CRM MARKETING MANAGER REFER RAL NOTE: LOCAL TITLE: TRAVELING COORDINATOR NOTE STANDARD TITLE: CRM MARKETING MANAGER REFERRAL NOTE DATE OF NOTE: APR 04, 2023@15:15 ENTRY DATE: APR 04, 2023@15:15:15 AUTHOR: MAIKOL TAPIA EXP COSIGNER: URGENCY: STATUS: COMPLETED Traveling Vet consult activity for: incoming/outgoing consult care coordination, communication &/or chart review. /anoop/ BREE KING TRAVELING COORDINATOR Signed: 04/04/2023 15:15 MAIKOL TAPIA [facility]
--- OUTSIDE RECORDS SUMMARY | 2023-10-08 05:32 | XMS_ITS | Encounter Summary ---
Author Name Department of Vetera Affairs Organization Department of Vetera ns Affairs Address [address] [place] [address] Care Team Providers Care Broadcast Engineer Name Role Phone KYLEIGH VERDUGO Primary Care [...] Name Patient's Relationship to Policy Bejarano [facility] (WNR) MEDICARE (M) BLUE EDICA RE VALUE P Apr 14, 2009 [id number] [phone] OSORIO POLLACK PATIENT [facility] (WNR) MEDICARE ADVANTAGE [facility] (WN) Apr 14, 2009 DO NOT BILL [id number] [facility] OSORIO POLLACK PATIENT [facility] (WNR) MEDICARE ADVANTAGE [facility] (WNR) Apr 14, 2016 [id number] [phone] OSORIO POLLACK PATIENT MEDICARE PART D (WN) MEDICARE (M) PART D Apr 14, 2021 PART D [id number] [facility] OSORIO POLLACK PATIENT Selected Encounter This section includes the information on record at [place] for the Encounter. Date/Time Encounter Type Encounter Description Reason Provider Source Mar 31, 2023 07:59 AM Outpatient Encounter ADMIN PAT ACTIVTIES (MASNONCT) MAIKOL TAPIA Trevon Encounter Template Text not used by [place] Plan of Treatment: Future Appointments (+ 6 months) and Future Tests (+/- 45 days) The Plan of Treatment section includes future care activities for the patient from all [place] treatment[facility] healthities. This section includes future appointments and future orders which are active, pending or scheduled. Future Appointments This section includes appointments that were scheduled to occur 6 months from the date of the Encounter, up to a maximum of 20 appointments. The data comes from all [place] treatment facilities. Appointment Date/Time Appointment Type Appointme nt Facility Name Apr 21, 2023 12:15 PM AMBULATORY - [facility] Apr 21, 2023 01:00 PM AMBULATORY - SURGERY [facility] Apr 25, 2023 01:00 PM AMBULATORY - REHAB MEDICIN E [facility] May 02, 2023 02:00 PM [place] [facility] May 06, 2023 10:15 AM AMBULATORY - [facility] August 22, 2023 09:30 AM [place] [facility] August 22, 2023 11:30 AM [place] [facility] August 22, 2023 12:15 PM [place]ONE [place] [facility] August 29, 2023 11:00 AM [place] [facility] August 29, 2023 11:30 AM [place] [facility] September 01, 2023 11:00 AM [place] [facility] September 09, 2023 12:30 PM [place] [facility] Sep 30, 2023 11:00 AM [place]IC[place] [facility] Lab Results: +/- 30 days of the encounter This section includes the Chemistry and Hematology Lab Results on record with [place] for the patient. Radiology Reports and Pathology Reports are provided separately, in subsequent sections. Lab Results This section contains the Chemistry/Hematology Results that were resulted 30 days before or 30 daysafter the date of the Encounter. Date/Time Source Result Type Result - Unit Interpretation Reference Range Comment Apr 21, 2023 11:28 AM [facility] BCR-ABL1 PCR Panel Specimen Type: BLOOD Comment: The P210 BCR-ABL1 fusion transcript is NOT detected. Reverse key worker real-time PCR is performed for the P210 BCR-ABL1 transcript associated with the t(9;22) chromosomal translocation usually seen in chronic myelogenous leukemia. Results are expressed as a percent ratio of BCR-ABL1 and further adjusted to the international scale (IS). For additional information, please refer to http://education. Zodio. FlatBurger/faq/FAQ72 (This link is being provided for informational/edu cational purposes only.) Assay sensitivity is at least 4.5-logs below baseline BCR-ABL1 transcript levels but is dependent on quantity and quality of RNA used for testing and the cellularity of the sample. This test was developed and its analytical performance characteristics have been determined by [employer] [place], [place]. It has not been cleared or approved by the FDA. This assay has been validated pursuant to the CLIA regulations and is used for clinical purposes. Jess Boyd M.D. Staff Pathologist Test Performed by [facility], [employer] [facility], [address] [place] [address] El Sethi M.D., Ph.D., Director of Laboratories , CLIA [id number] Ordering Provider: AMINAH HORTON Report Released Date/Time: Jan 07, 2023 03:55 PM Reporting Lab: [address] [place] [address] Performing Lab: [address] BCR-ABL1,PCR 0.000 P210 BCR-ABL1 Not Detected BCR-ABL1/ABL %(IS) 0.000 Apr 21, 2023 11:28 AM [facility] CBC (DIFF) Specimen Type: BLOOD No comment entered. Ordering Provider: AMINAH HORTON Report Released Date/Time: Jan 07, 2023 03:55 PM Reporting Lab: [address] [place] [place] [address] Performing Lab: [address] [place] [place] [address] WBC 4.2 10*3/uL 4.2-10.3 RBC 4.34 10*6/uL [...] 0.0-0.5 Apr 21, 2023 11:28 AM [facility] COMPREHENSIVE METABOLIC PANEL Specimen Type: PLASMA No comment entered. Ordering Provider: AMINAH HORTON Report Released Date/Time: Jan 07, 2023 03:55 PM Reporting Lab: [address] [facility] [address] Performing Lab: [address] [facility] [address] CREATININE 1.1 mg/dL 0.7-1.3 UREA NITROGEN 23 [...] 19 U/L 5-34 EGFR (2020) 66 >90 Social History: Smoking Status (Most current) and Tobacco Use (All prior to encounter date) This section includes the most current, and the historical, smoking and tobacco- related health factors from the [place] facility where the Encounter took place. Current Smoking Status This section includes the most current smoking, or tobacco-related health factor, from the [place] facility where the Encounter took place. Date/Time Current Smoking Status Comment Facil ity Oct 03, 2022 09:00 AM VA-TOBACCO QUIT 15 YRS OR MORE [facility] Tobacco Use History This section includes a history of the smoking, or tobacco-related health factors, that were collected on or before the date of the Encounter. The data comes from the [place] facility where the Encounter took place. Date/Time [...] Encounter. Date/Time Encounter Note(s) Provider Source Mar 31, 2023 07:59 AM LENS FABRICATING MACHINE TENDER REFER RAL NOTE: LOCAL TITLE: TRAVELING COORDINATOR NOTE STANDARD TITLE: LENS FABRICATING MACHINE TENDER REFERRAL NOTE DATE OF NOTE: MAR 31, 2023@07:59 ENTRY DATE: MAR 31, 2023@07:59:46 AUTHOR: MAIKOL TAPIA EXP COSIGNER: URGENCY: STATUS: COMPLETED Traveling Vet consult activity for: incoming/outgoing consult care coordination, communication &/or chart review. /anoop/ BREE KING TRAVELING COORDINATOR Signed: 03/31/2023 08:00 MAIKOL TAPIA [facility]
--- OUTSIDE RECORDS SUMMARY | 2023-10-08 05:32 | XMS_ITS | Encounter Summary ---
Author Name Department of Vetera Affairs Organization Department of Vetera ns Affairs Address [address] [place] [address] Care Team Providers Care Television Agent Name Role Phone KYLEIGH VERDUGO Primary Care [...] Bejarano's Name Patient's Relationship to Policy Bejarano [facility] (WNR) MEDICARE (M) BLUE EDICA RE VALUE P Apr 14, 2009 [id number] OSORIO POLLACK PATIENT [facility] (WNR) MEDICARE ADVANTAGE [facility] (WN) Apr 14, 2009 DO NOT BILL [id number] [facility] OSORIO POLLACK PATIENT [facility] (WNR) MEDICARE ADVANTAGE [facility] (WNR) Apr 14, 2016 [id number] [phone] OSORIO POLLACK PATIENT MEDICARE PART D (WN) MEDICARE (M) PART D Apr 14, 2021 PART D [id number] [facility] OSORIO POLLACK PATIENT Selected Encounter This section includes the information on record at MA for the Encounter. Date/Time Encounter Type Encounter Description Reason Provider Source Mar 28, 2023 07:05 AM TARGETED CASE MANAGEMENT ADMIN PAT ACTIVTIES (MASNONCT) MAIKOL TAPIA Trevon Encounter Template Text not used by MA Plan of Treatment: Future Appointments (+ 6 months) and Future Tests (+/- 45 days) The Plan of Treatment section includes future care activities for the patient from all [facility]. This section includes future appointments and future orders which are active, pending or scheduled. Future Appointments This section includes appointments that were scheduled to occur 6 months from the date of the Encounter, up to a maximum of 20 appointments. The data comes from all MA treatment facilities. Appointment Date/Time Appointment Type Appointme nt Facility Name Apr 21, 2023 12:15 PM AMBULATORY - [facility]ICINE [facility] Apr 21, 2023 01:00 PM AMBULATORY - SURGERY [facility] Apr 25, 2023 01:00 PM AMBULATORY - REHAB MEDICIN [facility] May 02, 2023 02:00 PM [facility] May 06, 2023 10:15 AM [facility] August 22, 2023 09:30 AM [facility] [place] [facility] August 22, 2023 11:30 AM [facility] August 22, 2023 12:15 PM [facility] August 29, 2023 11:00 AM [facility] August 29, 2023 11:30 AM [facility] September 01, 2023 11:00 AM [facility] September 09, 2023 12:30 PM [facility] Lab Results: +/- 30 days of the encounter This section includes the Chemistry and Hematology Lab Results on record with MA for the patient. Radiology Reports and Pathology Reports are provided separately, in subsequent sections. Lab Results This section contains the Chemistry/Hematology Results that were resulted 30 days before or 30 daysafter the date of the Encounter. Date/Time Source Result Type Result - Unit Interpretation Reference Range Comment Apr 21, 2023 11:28 AM [facility] BCR-ABL1 PCR Panel Specimen Type: BLOOD Comment: The P210 BCR-ABL1 fusion transcript is NOT detected. Reverse diversity manager real-time PCR is performed for the P210 BCR-ABL1 transcript associated with the t(9;22) chromosomal translocation usually seen in chronic myelogenous leukemia. Results are expressed as a percent ratio of BCR-ABL1 and further adjusted to the international scale (IS). For additional information, please refer to http://education. PubNative/faq/FAQ72 (This link is being provided for informational/edu cational purposes only.) Assay sensitivity is at least 4.5-logs below baseline BCR-ABL1 transcript levels but is dependent on quantity and quality of RNA used for testing and the cellularity of the sample. This test was developed and its analytical performance characteristics have been determined by [employer] [place], [place]. It has not been cleared or approved by the FDA. This assay has been validated pursuant to the CLIA regulations and is used for clinical purposes. Jess Boyd M.D. Staff Pathologist Test Performed by [facility], [employer] [facility], [address] [place] [address] El Sethi M.D., Ph.D., Director of Laboratories , CLIA [id number] Ordering Provider: AMINAH HORTON Report Released Date/Time: Jan 07, 2023 03:55 PM Reporting Lab: [address] [place] [address] Performing Lab: [address] BCR-ABL1,PCR 0.000 P210 BCR-ABL1 Not Detected BCR-ABL1/ABL %(IS) 0.000 Apr 21, 2023 11:28 AM [facility] CBC (DIFF) Specimen Type: BLOOD No comment entered. Ordering Provider: AMINAH HORTON Report Released Date/Time: Jan 07, 2023 03:55 PM Reporting Lab: [address] [place] [address] Performing Lab: [address] [place] [address] WBC 4.2 10*3/uL 4.2-10.3 RBC 4.34 10*6/uL [...] 10*3/uL 0.0-0.5 Apr 21, 2023 11:28 AM [facility] COMPREHENSIVE METABOLIC PANEL Specimen Type: PLASMA No comment entered. Ordering Provider: AMINAH HORTON Report Released Date/Time: Jan 07, 2023 03:55 PM Reporting Lab: [address] [place] [address] Performing Lab: [address] [facility] [address] CREATININE 1.1 mg/dL 0.7-1.3 UREA NITROGEN 23 [...] and tobacco- related health factors from the [place] facility where the Encounter took place. Current Smoking Status This section includes the most current smoking, or tobacco-related health factor, from the [place] facility where the Encounter took place. Date/Time Current Smoking Status Comment Facil ity Oct 03, 2022 09:00 AM VA-TOBACCO FORMER USER [facility] Tobacco Use History This section includes a history of the smoking, or tobacco-related health factors, that were collected on or before the date of the Encounter. The data comes from the [place] facility where the Encounter took place. Date/Time Smoking Status/Tobacco Use Comment F acility Oct 03, 2022 09:00 AM VA-TOBACCO QUIT 15 YRS OR MORE [facility] Sep 27, 2021 02:30 PM VA-TOBACCO FORMER USER [facility] Sep 27, 2021 02:30 PM VA-TOBACCO QUIT 15 YRS OR MORE [facility] Dec 09, 2019 12:30 PM VA-TOBACCO FORMER USER [facility] Dec 09, 2019 12:30 PM VA-TOBACCO QUIT 15 YRS OR MORE [facility] Oct 06, 2018 02:12 PM VA-TOBACCO FORMER USER [facility] Oct 06, 2018 02:12 PM VA-TOBACCO QUIT 15 YRS OR MORE [facility] Sep 17, 2017 02:55 PM FORMER TOBACCO USER 7Y OR GREATE R [facility] August 29, 2016 01:07 PM FORMER TOBACCO USER 7Y OR GREATE R [facility] Nov 06, 2015 01:10 PM FORMER TOBACCO USER 7Y OR GREATE R [facility] August 19, 2014 09:31 AM FORMER TOBACCO USER 7Y OR GREATE R [facility] August 31, 2013 08:06 AM FORMER TOBACCO USER 7Y OR GREATE R [facility] Jul 02, 2006 10:49 AM FORMER TOBACCO USER 7Y OR GREATE R [facility] Encounter Notes: All associated encounter notes This section contains the clinical notes associated to the Encounter. Date/Time Encounter Note(s) Provider Source Mar 28, 2023 07:06 AM LEASING DIRECTOR REFER RAL NOTE: LOCAL TITLE: TRAVELING COORDINATOR NOTE STANDARD TITLE: LEASING DIRECTOR REFERRAL NOTE DATE OF NOTE: MAR 28, 2023@07:06 ENTRY DATE: MAR 28, 2023@07:06:16 AUTHOR: MAIKOL TAPIA EXP COSIGNER: URGENCY: STATUS: COMPLETED Traveling Vet consult activity for: incoming/outgoing consult care coordination, communication &/or chart review. /anoop/ BREE KING TRAVELING COORDINATOR Signed: 03/28/2023 07:06 MAIKOL TAPIA [facility]
--- OUTSIDE RECORDS SUMMARY | 2023-10-08 05:32 | XMS_ITS | Encounter Summary ---
Author Name Department of Vetera Affairs Organization Department of Vetera ns Affairs Address [address] [place] [address] Care Team Providers Care Web Marketing Coordinator Name Role Phone KYLEIGH VERDUGO Primary Care [...] Bejarano's Name Patient's Relationship to Policy Bejarano [facility] [place]) MEDICARE (M) BLUE EDICA RE VALUE P Apr 14, 2009 [id number] OSORIO POLLACK PATIENT [facility] (WNR) MEDICARE ADVANTAGE [facility] (WN) Apr 14, 2009 DO NOT BILL [id number] [facility] OSORIO POLLACK PATIENT [facility] (WNR) MEDICARE ADVANTAGE [facility] (WNR) Apr 14, 2016 [id number] [phone] OSORIO POLLACK PATIENT MEDICARE PART D (WN) MEDICARE (M) PART D Apr 14, 2021 PART D [id number] [facility] OSORIO POLLACK PATIENT Selected Encounter This section includes the information on record at OR for the Encounter. Date/Time Encounter Type Encounter Description Reason Provider Source Mar 25, 2023 03:39 PM TARGETED CASE MANAGEMENT ADMIN PAT ACTIVTIES (MASNONCT) MAIKOL TAPIA Trevon Encounter Template Text not used by OR Plan of Treatment: Future Appointments (+ 6 months) and Future Tests (+/- 45 days) The Plan of Treatment section includes future care activities for the patient from all [place] treatment[facility] hospitalities. This section includes future appointments and [...] 2023 01:00 PM AMBULATORY - SURGERY [facility] Apr 25, 2023 01:00 PM AMBULATORY - REHAB MEDIC[facility] May 02, 2023 02:00 PM [facility] May 06, 2023 10:15 AM [facility] August 22, 2023 09:30 AM [place] [facility] August 22, 2023 11:30 AM [facility] August 22, 2023 12:15 PM [facility] August 29, 2023 11:00 AM [facility] August 29, 2023 11:30 AM [facility] September 01, 2023 11:00 AM [facility] September 09, 2023 12:30 PM [facility] Lab Results: +/- 30 days of the [...] Comment Apr 21, 2023 11:28 AM [facility] BCR-ABL1 PCR Panel Specimen Type: BLOOD Comment: The P210 BCR-ABL1 fusion transcript is NOT detected. Reverse recorder gravity prospecting real-time PCR is performed for the P210 BCR-ABL1 transcript associated with the t(9;22) chromosomal translocation usually seen in chronic myelogenous leukemia. Results are expressed as a percent ratio of BCR-ABL1 and further adjusted to the international scale (IS). For additional information, please refer to http://education. Trovix/faq/FAQ72 (This link is being provided for informational/edu cational purposes only.) Assay sensitivity is at least 4.5-logs below baseline BCR-ABL1 transcript levels but is dependent on quantity and quality of RNA used for testing and the cellularity of the sample. This test was developed and its analytical performance characteristics have been determined by [employer] [place], [place]. It has not been cleared or approved by the FDA. This assay has been validated pursuant to the CLIA regulations and is used for clinical purposes. Jess Boyd M.D. Staff Pathologist Test Performed by [facility], [employer] [facility], [address] [place] [address] El Sethi M.D., Ph.D., Director of Laboratories , CLIA [id number] Ordering Provider: AMINAH HORTON Report Released Date/Time: Jan 07, 2023 03:55 PM Reporting Lab: [place] [address] [place] [address] Performing Lab: [address] BCR-ABL1,PCR 0.000 P210 BCR-ABL1 Not Detected BCR-ABL1/ABL %(IS) 0.000 Apr 21, 2023 11:28 AM [facility] COMPREHENSIVE METABOLIC PANEL Specimen Type: PLASMA No comment entered. Ordering Provider: AMINAH HORTON Report Released Date/Time: Jan 07, 2023 03:55 PM Reporting Lab: [address] [place] [address] Performing Lab: [address] [place] [address] CREATININE 1.1 mg/dL 0.7-1.3 UREA NITROGEN 23 [...] 66 >90 Apr 21, 2023 11:28 AM [facility] CBC (DIFF) Specimen Type: BLOOD No comment entered. Ordering Provider: AMINAH HORTON Report Released Date/Time: Jan 07, 2023 03:55 PM Reporting Lab: [address] [facility] [address] Performing Lab: [address] [facility] [address] WBC 4.2 10*3/uL 4.2-10.3 RBC 4.34 10*6/uL [...] and tobacco- related health factors from the [facility] where the Encounter took place. Current Smoking Status This section includes the most current smoking, or tobacco-related health factor, from the [place] facility where the Encounter took place. Date/Time Current Smoking Status Comment Facil ity Oct 03, 2022 09:00 AM VA-TOBACCO QUIT [address] [facility] Tobacco Use History This section includes a history of the smoking, or tobacco-related health factors, that were collected on or before the date of the Encounter. The data comes from the [place] facility where the Encounter took place. Date/Time Smoking Status/Tobacco Use Comment F acility Oct 03, 2022 09:00 AM VA-TOBACCO QUIT [address] [facility] Sep 27, 2021 02:30 PM VA-TOBACCO FORMER USER [facility] Sep 27, 2021 02:30 PM VA-TOBACCO QUIT [address] [facility] Dec 09, 2019 12:30 PM VA-TOBACCO FORMER USER [facility] Dec 09, 2019 12:30 PM VA-TOBACCO QUIT [address] [facility] Oct 06, 2018 02:12 PM VA-TOBACCO FORMER USER [facility] Oct 06, 2018 02:12 PM VA-TOBACCO QUIT [address] [facility] Sep 17, 2017 02:55 PM FORMER TOBACCO USER 7Y OR GREATE R [facility] August 29, 2016 01:07 PM FORMER TOBACCO USER 7Y OR GRE[address] R [facility] Nov 06, 2015 01:10 PM FORMER TOBACCO USER 7Y OR GRE[address] R [facility] August 19, 2014 09:31 AM FORMER TOBACCO USER 7Y OR GREATE R [facility] August 31, 2013 08:06 AM FORMER TOBACCO USER 7Y OR GRE[address] R [facility] Jul 02, 2006 10:49 AM FORMER TOBACCO USER 7Y OR GRE[address] R [facility] Encounter Notes: All associated encounter notes This section contains the clinical notes associated to the Encounter. Date/Time Encounter Note(s) Provider Source Mar 25, 2023 03:39 PM STEEL MELTER REFER RAL NOTE: LOCAL TITLE: TRAVELING COORDINATOR NOTE STANDARD TITLE: STEEL M[employer]TER REFERRAL NOTE DATE OF NOTE: MAR 25, 2023@15:39 ENTRY DATE: MAR 25, 2023@15:39:59 AUTHOR: MAIKOL TAPIA EXP COSIGNER: URGENCY: STATUS: COMPLETED Traveling Vet consult activity for: incoming/outgoing consult care coordination, communication &/or chart review. /anoop/ BREE KING TRAVELING COORDINATOR Signed: 03/25/2023 15:[address] [facility]
--- OUTSIDE RECORDS SUMMARY | 2023-10-08 05:33 | XMS_ITS | Encounter Summary ---
Author Name Department of Vetera Affairs Organization Department of Vetera ns Affairs Address [address] [place] [address] Care Team Providers Care Marine Machinist Name Role Phone KYLEIGH VERDUGO Primary Care [...] Bejarano's Name Patient's Relationship to Policy Bejarano [facility] (WNR) MEDICARE (M) BLUE EDICA RE VALUE P Apr 14, 2009 [id number] [phone] OSORIO POLLACK PATIENT [facility] (WNR) MEDICARE ADVANTAGE [facility] (WNR) Apr 14, 2009 DO NOT BILL [id number] [facility] [phone] OSORIO POLLACK PATIENT [facility] (WNR) MEDICARE ADVANTAGE [facility] (WNR) Apr 14, 2016 [id number] [phone] OSORIO POLLACK PATIENT MEDICARE PART D (WNR) MEDICARE (M) PART D Apr 14, 2021 PART D [id number] [facility] OSORIO POLLACK PATIENT Selected Encounter This section includes the information on record at [place] for the Encounter. Date/Time Encounter Type Encounter Description Reason Provider Source Apr 25, 2023 09:46 AM Outpatient Encounter ADMIN PAT ACTIVTIES (MASNONCT) MAIKOL TAPIA Trevon Encounter Template Text not used by [place] Plan of Treatment: Future Appointments (+ 6 months) and Future Tests (+/- 45 days) The Plan of Treatment section includes future care activities for the patient from all [place] treatmentfacilities. This section includes future appointments and future orders which are active, pending or scheduled. Future Appointments This section includes appointments that were scheduled to occur 6 months from the date of the Encounter, up to a maximum of 20 appointments. The data comes from all [place] treatment facilities. Appointment Date/Time Appointment Type Appointme nt Facility Name May 02, 2023 02:00 PM AM[place]UL[place]ORY [place]IC[place] [facility] May 06, 2023 10:15 AM AMBULATORY - [facility]ICINE [facility] August 22, 2023 09:30 AM [facility] August 22, 2023 11:30 AM [place]IC[place] [facility] August 22, 2023 12:15 PM [place]ORY - [place]ONE [place] [facility] August 29, 2023 11:00 AM [place]ORY [place]IC[place] [facility] August 29, 2023 11:30 AM [place] [facility] September 01, 2023 11:00 AM [facility] September 09, 2023 12:30 PM [facility] - [facility] Sep 30, 2023 11:00 AM [facility] Lab Results: +/- 30 days of the encounter This section includes the Chemistry and Hematology Lab Results on record with [place] for the patient. Radiology Reports and Pathology Reports are provided separately, in subsequent sections. Lab Results This section contains the Chemistry/Hematology Results that were resulted 30 days before or 30 daysafter the date of the Encounter. Date/Time Source Result Type Result - Unit Interpretation Reference Range Comment Apr 21, 2023 11:28 AM [facility] BCR-ABL1 PCR Panel Specimen Type: BLOOD Comment: The P210 BCR-ABL1 fusion transcript is NOT detected. Reverse financial business analyst real-time PCR is performed for the P210 BCR-ABL1 transcript associated with the t(9;22) chromosomal translocation usually seen in chronic myelogenous leukemia. Results are expressed as a percent ratio of BCR-ABL1 and further adjusted to the international scale (IS). For additional information, please refer to http://education. Human Longevity. Oversi/faq/FAQ72 (This link is being provided for informational/edu cational purposes only.) Assay sensitivity is at least 4.5-logs below baseline BCR-ABL1 transcript levels but is dependent on quantity and quality of RNA used for testing and the cellularity of the sample. This test was developed and its analytical performance characteristics have been determined by [employer] [place], [place]. It has not been cleared or approved by the FDA. This assay has been validated pursuant to the CLIA regulations and is used for clinical purposes. Jess Boyd M.D. Staff Pathologist Test Performed by [facility], [facility] [facility], [address] [place] [address] El Sethi M.D., Ph.D., Director of Laboratories , CLIA [id number] Ordering Provider: AMINAH HORTON Report Released Date/Time: Jan 07, 2023 03:55 PM Reporting Lab: [address] [place] [facility] [id number] Performing Lab: [address] BCR-ABL1,PCR 0.000 P210 BCR-ABL1 Not Detected BCR-ABL1/ABL %(IS) 0.000 Apr 21, 2023 11:28 AM [facility] COMPREHENSIVE METABOLIC PANEL Specimen Type: PLASMA No comment entered. Ordering Provider: AMINAH HORTON Report Released Date/Time: Jan 07, 2023 03:55 PM Reporting Lab: [address] [place] [address] Performing Lab: [address] [place] [address] CREATININE 1.1 mg/dL 0.7-1.3 UREA NITROGEN 23 [...] 66 >90 Apr 21, 2023 11:28 AM [facility] CBC (DIFF) Specimen Type: BLOOD No comment entered. Ordering Provider: AMINAH HORTON Report Released Date/Time: Jan 07, 2023 03:55 PM Reporting Lab: [place] [id number] [facility] [address] Performing Lab: [address] [facility] [address] WBC 4.2 10*3/uL 4.2-10.3 RBC 4.34 10*6/uL [...] and tobacco- related health factors from the [facility] where the Encounter took place. Current Smoking Status This section includes the most current smoking, or tobacco-related health factor, from the [facility] where the Encounter took place. Date/Time Current Smoking Status Comment Facil ity Oct 03, 2022 09:00 AM VA-TOBACCO QUIT 15 YRS OR MORE [facility] Tobacco Use History This section includes a history of the smoking, or tobacco-related health factors, that were collected on or before the date of the Encounter. The data comes from the [facility] where the Encounter took place. Date/Time Smoking Status/Tobacco Use Comment F acility Oct 03, 2022 09:00 AM VA-TOBACCO QUIT 15 YRS OR MORE [facility] Sep 27, 2021 02:30 PM VA-TOBACCO FORMER USER [facility] Sep 27, 2021 02:30 PM VA-TOBACCO QUIT 15 YRS OR MORE [facility] Dec 09, 2019 12:30 PM VA-TOBACCO FORMER USER [facility] Dec 09, 2019 12:30 PM VA-TOBACCO QUIT 15 YRS OR MORE [facility] Oct 06, 2018 02:12 PM VA-TOBACCO FORMER USER [facility] Oct 06, 2018 02:12 PM VA-TOBACCO QUIT 15 YRS OR MORE [facility] Sep 17, 2017 02:55 PM FORMER TOBACCO USER 7Y OR GREATE R [facility] August 29, 2016 01:07 PM FORMER TOBACCO USER 7Y OR GREATE R [facility] Nov 06, 2015 01:10 PM FORMER TOBACCO USER 7Y OR GREATE R [facility] August 19, 2014 09:31 AM FORMER TOBACCO USER 7Y OR GREATE R [facility] August 31, 2013 08:06 AM FORMER TOBACCO USER 7Y OR GREATE R [facility] Jul 02, 2006 10:49 AM FORMER TOBACCO USER 7Y OR GREATE R [facility] Encounter Notes: All associated encounter notes This section contains the clinical notes associated to the Encounter. Date/Time Encounter Note(s) Provider Source Apr 25, 2023 09:46 AM HOTEL SALES MANAGER REFER RAL NOTE: LOCAL TITLE: TRAVELING COORDINATOR NOTE STANDARD TITLE: HOTEL SALES MANAGER REFERRAL NOTE DATE OF NOTE: APR 25, 2023@09:46 ENTRY DATE: APR 25, 2023@09:46:58 AUTHOR: MAIKOL TAPIA EXP COSIGNER: URGENCY: STATUS: COMPLETED [facility] 04/21/2023 11:28 GLUCOSE PLASMA 107 H mg/dL 70 105 [facility] 04/21/2023 11:28 UREA NITROGEN PLASMA 23 H mg/dL 7 20.6 [facility] 04/21/2023 11:28 CREATININE PLASMA 1.1 mg/dL 0.7 1.3 [facility] 04/21/2023 11:28 SODIUM PLASMA 142 mEq/L 136 145 [facility] 04/21/2023 11:28 POTASSIUM PLASMA 4.4 mEq/L 3.5 5.2 [facility] 04/21/2023 11:28 CHLORIDE PLASMA 107 mEq/L 98 109 [facility] 04/21/2023 11:28 CO2 PLASMA 25 mmol/L 22 31 [facility] 04/21/2023 11:28 CALCIUM PLASMA 9.2 mg/dL 8.4 10.6 [facility] 04/21/2023 11:28 PROTEIN,TOTAL PLASMA 7.4 g/dL 6.4 8.3 [facility] 04/21/2023 11:28 ALBUMIN PLASMA 4.4 g/dL 2.8 4.5 [facility] 04/21/2023 11:28 TOTAL BILIRUBIN PLASMA 0.40 mg/dL 0.16 1.25 [facility] 04/21/2023 11:28 ALK DAVID PLASMA 64 U/L 40 150 [facility] 04/21/2023 11:28 ANION GAP PLASMA 10.0 mEq/L 5 18 [facility] 04/21/2023 11:28 ALT PLASMA 8 L U/L 10 55 [facility] 04/21/2023 11:28 AST PLASMA 19 U/L 5 34 [facility] 04/21/2023 11:28 EGFR (2020) PLASMA 66 90 [facility] 04/21/2023 11:28 P210 BCR-ABL1 BLOOD Not Detected The P210 BCR-ABL1 fusion transcript is NOT detected.... [+] [facility] 04/21/2023 11:28 BCR-ABL1/ABL %(IS) BLOOD 0.000 % The P210 BCR-ABL1 fusion transcript is NOT detected.... [+] [facility] 04/21/2023 11:28 BCR-ABL1,PCR BLOOD 0.000 % The P210 BCR-ABL1 fusion transcript is NOT detected.... [+] [facility] 04/21/2023 11:28 WBC BLOOD 4.2 K/cmm 4.2 10.3 [facility] 04/21/2023 11:28 RBC BLOOD 4.34 M/cmm 4.20 5.80 [facility] 04/21/2023 11:28 HEMOGLOBIN BLOOD 13.2 g/dL 13.0 17.0 [facility] 04/21/2023 11:28 HCT BLOOD 40.6 % 39.0 50.0 [facility] 04/21/2023 11:28 MCV BLOOD 93.5 fL 80.0 100.0 [facility] 04/21/2023 11:28 MCH BLOOD 30.4 pg 27.0 35.0 [facility] 04/21/2023 11:28 MCHC BLOOD 32.5 g/dL 32.0 36.0 [facility] 04/21/2023 11:28 RDW BLOOD 14.5 % 11.3 16.5 [facility] 04/21/2023 11:28 PLT BLOOD 173 K/cmm 150 410 [facility] 04/21/2023 11:28 MPV BLOOD 9.5 fL 8.5 12.5 [facility] 04/21/2023 11:28 NEUT % BLOOD 46.4 % 39.0 79.0 [facility] 04/21/2023 11:28 LYMPH % BLOOD 39.0 % 12.0 45.0 [facility] 04/21/2023 11:28 MONO % BLOOD 8.7 % 2.0 12.0 [facility] 04/21/2023 11:28 EOS % BLOOD 3.9 % 0.0 6.0 [facility] 04/21/2023 11:28 BASO % BLOOD 1.0 % 0.0 2.0 [facility] 04/21/2023 11:28 IG% BLOOD 1.0 H % 0.0 0.6 [facility] 04/21/2023 11:28 NEUT # BLOOD 1.9 K/cmm 1.6 6.2 [facility] 04/21/2023 11:28 LYMPH # BLOOD 1.6 K/cmm 1.1 3.4 [facility] 04/21/2023 11:28 MONO # BLOOD 0.4 K/cmm 0.3 0.9 [facility] 04/21/2023 11:28 EOS # BLOOD 0.2 K/cmm 0.1 0.5 [facility] 04/21/2023 11:28 BASO # BLOOD 0.0 K/cmm 0.0 0.1 [facility] 04/21/2023 11:28 IG# BLOOD 0.0 K/cmm 0.0 0.5 /anoop/ BREE KING TRAVELING COORDINATOR Signed: 04/25/2023 09:47 Receipt Acknowledged By: 04/25/2023 11:07 /anoop/ Shaylee Matt PA-C Physician Email Producer MAIKOL TAPIA [facility]
--- OUTSIDE RECORDS SUMMARY | 2023-10-08 05:33 | XMS_ITS | Encounter Summary ---
Author Name Department of Vetera Affairs Organization Department of Vetera Affairs Address [address] [place] [address] Care Team Providers Care Mainframe Systems Programmer Name Role Phone KYLEIGH VERDUGO Primary Care [...] EDICA RE VALUE P Apr 14, 2009 [id number] OSORIO POLLACK PATIENT [facility] (WNR) MEDICARE ADVANTAGE [facility] Apr 14, 2009 DO NOT BILL [id number] [facility] OSORIO POLLACK PATIENT [facility] (WNR) MEDICARE ADVANTAGE [facility] (WN) Apr 14, 2016 [id number] [phone] OSORIO POLLACK PATIENT MEDICARE PART D ([place]) MEDICARE (M) PART D Apr 14, 2021 PART D [id number] [facility] OSORIO POLLACK PATIENT Selected Encounter This section includes the information on record at [place] for the Encounter. Date/Time Encounter Type Encounter Description Reason Provider Source May 02, 2023 02:00 PM OFFICE O/P EST MOD 30 MIN ONCOLOGY/TUMOR ICD-10-CM 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, BCR/ABL-positi ve, not achieve SHAYLEE Mccormick Trevon Encounter Template Text not used by [place] Assessments - Encounter Diagnoses This section includes the primary and secondary diagnoses documented for the Encounter. Date/Time Primary/Secondary Diagnosis Diagnosis Name Provider Source May 07, 2023 11:46 PM PRIMARY Chronic myeloid leuk, BCR/ABL-positiv e, not achieve SHAYLEE Mccormick [facility] Plan of Treatment: Future Appointments (+ 6 months) and Future Tests (+/- 45 days) The Plan of Treatment section includes future care activities for the patient from all [place] treatmentfacilities. This section includes future appointments and future orders which are active, pending or scheduled. Future Appointments This section includes appointments that were scheduled to occur 6 months from the date of the Encounter, up to a maximum of 20 appointments. The data comes from all [place] treatment facilities. Appointment Date/Time Appointment Type Appointme nt Facility Name May 06, 2023 10:15 AM AMBULATORY - MEDICINE [facility] August 22, 2023 09:30 AM AMBULATORY - NONE [facility] August 22, 2023 11:30 AM AMBULATORY - MEDICINE [facility] August 22, 2023 12:15 PM AMBULATORY - NONE [facility] August 29, 2023 11:00 AM AMBULATORY - MEDICINE [facility] August 29, 2023 11:30 AM AMBULATORY - MEDICINE [facility] September 01, 2023 11:00 AM AMBULATORY - MEDICINE [facility] September 09, 2023 12:30 PM AMBULATORY - SURGERY [facility] Sep 30, 2023 11:00 AM AMBULATORY - MEDICINE [facility] Lab Results: +/- 30 days of the encounter This section includes the Chemistry and Hematology Lab Results on record with [place] for the patient. Radiology Reports and Pathology Reports are provided separately, in subsequent sections. Lab Results This section contains the Chemistry/Hematology Results that were resulted 30 days before or 30 daysafter the date of the Encounter. Date/Time Source Result Type Result - Unit Interpretation Reference Range Comment Apr 21, 2023 11:28 AM [facility] BCR-ABL1 PCR Panel Specimen Type: BLOOD Comment: The P210 BCR-ABL1 fusion transcript is NOT detected. Reverse metals analyst real-time PCR is performed for the P210 BCR-ABL1 transcript associated with the t(9;22) chromosomal translocation usually seen in chronic myelogenous leukemia. Results are expressed as a percent ratio of BCR-ABL1 and further adjusted to the international scale (IS). For additional information, please refer to http://education. Privacy Analytics. Advanced Mobile Solutions/faq/FAQ72 (This link is being provided for informational/edu cational purposes only.) Assay sensitivity is at least 4.5-logs below baseline BCR-ABL1 transcript levels but is dependent on quantity and quality of RNA used for testing and the cellularity of the sample. This test was developed and its analytical performance characteristics have been determined by [employer] [place], [place]. It has not been cleared or approved by the FDA. This assay has been validated pursuant to the CLIA regulations and is used for clinical purposes. Jess Boyd M.D. Staff Pathologist Test Performed by [facility], [facility], [address] [place] [address] El Sethi M.D., Ph.D., Director of Laboratories , CLIA [id number] Ordering Provider: AMINAH HORTON Report Released Date/Time: Jan 07, 2023 03:55 PM Reporting Lab: [address] [facility] [address] Performing Lab: [place] [id number] [facility] BCR-ABL1,PCR 0.000 P210 BCR-ABL1 Not Detected BCR-ABL1/ABL %(IS) 0.000 Apr 21, 2023 11:28 AM [facility] COMPREHENSIVE METABOLIC PANEL Specimen Type: PLASMA No comment entered. Ordering Provider: AMINAH HORTON Report Released Date/Time: Jan 07, 2023 03:55 PM Reporting Lab: [address] [place] [address] Performing Lab: [address] [place] [address] CREATININE 1.1 mg/dL 0.7-1.3 UREA NITROGEN 23 [...] 66 >90 Apr 21, 2023 11:28 AM [facility] CBC (DIFF) Specimen Type: BLOOD No comment entered. Ordering Provider: AMINAH HORTON Report Released Date/Time: Jan 07, 2023 03:55 PM Reporting Lab: [address] [facility] [address] Performing Lab: [address] [facility] [address] WBC 4.2 10*3/uL 4.2-10.3 RBC 4.34 10*6/uL [...] and tobacco- related health factors from the [place] facility where the Encounter took place. Current Smoking Status This section includes the most current smoking, or tobacco-related health factor, from the [place] facility where the Encounter took place. Date/Time Current Smoking Status Comment Facil ity Oct 03, 2022 09:00 AM VA-TOBACCO FORMER USER [facility] Tobacco Use History This section includes a history of the smoking, or tobacco-related health factors, that were collected on or before the date of the Encounter. The data comes from the [facility] where the Encounter took place. Date/Time Smoking Status/Tobacco Use Comment F acility Oct 03, 2022 09:00 AM VA-TOBACCO QUIT 15 YRS OR MORE [facility] Sep 27, 2021 02:30 PM VA-TOBACCO FORMER USER [facility] Sep 27, 2021 02:30 PM VA-TOBACCO QUIT 15 YRS OR MORE [facility] Dec 09, 2019 12:30 PM VA-TOBACCO FORMER USER [facility] Dec 09, 2019 12:30 PM VA-TOBACCO QUIT 15 YRS OR MORE [facility] Oct 06, 2018 02:12 PM VA-TOBACCO FORMER USER [facility] Oct 06, 2018 02:12 PM VA-TOBACCO QUIT 15 YRS OR MORE [facility] Sep 17, 2017 02:55 PM FORMER TOBACCO USER 7Y OR GREATE R [facility] August 29, 2016 01:07 PM FORMER TOBACCO USER 7Y OR GREATE R [facility] Nov 06, 2015 01:10 PM FORMER TOBACCO USER 7Y OR GREATE R [facility] August 19, 2014 09:31 AM FORMER TOBACCO USER 7Y OR GREATE R [facility] August 31, 2013 08:06 AM FORMER TOBACCO USER 7Y OR GREATE R [facility] Jul 02, 2006 10:49 AM FORMER TOBACCO USER 7Y OR GREATE R [facility] Encounter Notes: All associated encounter notes This section contains the clinical notes associated to the Encounter. Date/Time Encounter Note(s) Provider Source May 02, 2023 02:11 PM HEMATOLOGY AND ONC OLOGY ATTENDING NOTE: LOCAL TITLE: HEME/ONC CLINIC NOTE STANDARD TITLE: HEMATOLOGY AND ONCOLOGY ATTENDING NOTE DATE OF NOTE: MAY 02, 2023@14:11 ENTRY DATE: MAY 02, 2023@14:11:52 AUTHOR: SHAYLEE MATT COSIGNER: URGENCY: STATUS: COMPLETED Date of service: 05/02/23 [place] understands limitations of phone/VVC appointments and consents to proceed. Reason for visit (CC): CML, chronic phase Treatment/Plan: Dasatinib HPI: Pt was down in [place]. He is feeling great. really has no concerns on our visit. continues to tolerate the desatinib well. appetite is good. denies n/V. no clotting concerns. no new bone pains. no new issues on todays visit. 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 Started with imatinib 09/2013 at varying doses (neutropenia). He was switched to Dasatinib [place] on 06/08/15 due to rising bcr/abl. [place] [facility] [place]. Since started dasatinib, his BCR/ABL steadily declined, [...] 0.000 08/30/20- BCR/ABL <0.003 12/11/21- BCR/ABL <0.003 - pt stopped his desatinib- forgot to fill, so restarted end of 02/11/22- BCR/ABL 0.007- continue on desatinib 09/06/22- bcr/abl undetectable- to present PAST MEDICAL HISTORY: Active problems - Computerized Problem List is the source for the followin. History of immune thrombocytopenia (SNOMED CT 294930083) 2. Type 2 diabetes mellitus 3. Skin cancer (SNOMED CT 476249346) - H/O SCCA in 2010. 4. Hearing loss (SNOMED CT 52914039) 5. Osteoarthritis - S/P left knee arthroscopy in 1994. - S/P right shoulder decompression in 2002. 6. Trigger finger (acquired) 7. Benign prostatic hypertrophy with outflow obstruction 8. Chronic myeloid leukemia (SNOMED CT 60361935) 9. Chronic low back pain 10. Hyperlipidemia 11. Solitary nodule of lung 12. Insomnia 13. ECG: ventricular ectopics 14. Proteinuria 15. Inguinal hernia 16. Monoclonal paraproteinemia 17. Pain of bilateral knee regions ALLERGIES: FLUCONAZOLE (August 29, 2016) LISINOPRIL (Nov 30, 2018) RADIOLOGY: radiology obtained by heme/onc was reviewed with the patient. MEDS: All pertinent heme/onc meds reviewed and updated with the patient LABS: The following labs were obtained by [facility] and the results were reviewed with the [...] ABS NEUT 2.50 K/cmm 2.0 - 7.7 !! Indicates COMMENTS AVAILABLE...Refer to Interim Lab Report. CMP (calcium, creatinine, BUN, glucose, electrolytes, albumin, total bilirubin, alkaline phosphatase, total protein, ALT, AST) Magnesium Serum phosphorus, LDH Any abnormal lab was discussed with patient. ASSESMENT/PLAN: 83 yr/M with CML (chronic phase), on Dasatinib as second line treatment with hematologic and excellent molecular response to therapy. He was off dasatinib for nearly 1 year before his BCR started to increase and decision was made to restart dasatinib in 11/2019. Recent BCR/ABL is undetectable. Other labs look good. - Continue Dasatinib 50 mg/day. - FU in 4 months to get back on refill track # MGUS- IgM kappa paraprotein- last check was 0.19 -stable - will recheck qother visit- q6mo Performance Status (ECOG):0 30minutes spent on the phone in care and communication, reviewing chart history, reviewing labs and imaging and medications, documentaion in EMR Education Patient on Treatment Plan:Patient indicates readiness to learn, verbalizes understanding, agreement and satisfaction with the treatment plan. Denies further questions. /anoop/ Shaylee Matt PA-C Physician Gyro Compass Tester Signed: 05/07/2023 23:46 SHAYLEE MATT [facility]
--- OUTSIDE RECORDS SUMMARY | 2023-10-08 05:33 | XMS_ITS | Encounter Summary ---
Author Name Department of Vetera Affairs Organization Department of Vetera ns Affairs Address [address] [place] [address] Care Team Providers Care Steam Powerplant Supervisor Name Role Phone KYLEIGH VERDUGO Primary [...] Bejarano's Name Patient's Relationship to Policy Bejarano [facility] (WNR) MEDICARE (M) BLUE EDICA RE VALUE P Apr 14, 2009 [id number] OSORIO POLLACK PATIENT [facility] (WNR) MEDICARE ADVANTAGE [facility] (WNR) Apr 14, 2009 DO NOT BILL [id number] [facility] OSORIO POLLACK PATIENT [facility] (WNR) MEDICARE ADVANTAGE [facility] (WNR) Apr 14, 2016 [id number] [phone] OSORIO POLLACK PATIENT MEDICARE PART D (WNR) MEDICARE (M) PART D Apr 14, 2021 PART D [id number] [facility] OSORIO POLLACK PATIENT Selected Encounter This section includes the information on [place] at [place] for the Encounter. Date/Time Encounter Type Encounter Description Reason Provider Source Apr 23, 2023 08:58 AM Outpatient Encounter ADMIN PAT ACTIVTIES (MASNONCT) MAIKOL TAPIA Trevon Encounter Template Text not used by [place] Plan of Treatment: Future Appointments (+ 6 months) and Future Tests (+/- 45 days) The Plan of Treatment section includes future care activities for the patient from all [place] [facility]. This section includes future appointments and future orders which are active, pending or scheduled. Future Appointments This section includes appointments that were scheduled to occur 6 months from the date of the Encounter, up to a maximum of 20 appointments. The data comes from all [place] treatment facilities. Appointment Date/Time Appointment Type Appointme nt Facility Name Apr 25, 2023 01:00 PM AMBULATORY - [facility] May 02, 2023 02:00 PM [facility] May 06, 2023 10:15 AM AMBULATORY - MEDICINE [facility] August 22, 2023 09:30 AM [facility]ONE [facility] August 22, 2023 11:30 AM [facility] [place] [facility] August 22, 2023 12:15 PM [facility]ONE [place] [facility] August 29, 2023 11:00 AM [facility] [place] [facility] [facility] August 29, 2023 11:30 AM [facility] [place] [facility] [facility] September 01, 2023 11:00 AM [facility] September 09, 2023 12:30 PM [facility] - [place] [facility] [facility] Sep 30, 2023 11:00 AM [facility] Lab Results: +/- 30 days of the encounter This section includes the Chemistry and Hematology Lab Results on record with [place] for the patient. Radiology Reports and Pathology Reports are provided separately, in subsequent sections. Lab Results This section contains the Chemistry/Hematology Results that were resulted 30 days before or 30 daysafter the date of the Encounter. Date/Time Source Result Type Result - Unit Interpretation Reference Range Comment Apr 21, 2023 11:28 AM [facility] BCR-ABL1 PCR Panel Specimen Type: BLOOD Comment: The P210 BCR-ABL1 fusion transcript is NOT detected. Reverse laser beam color scanner operator real-time PCR is performed for the P210 BCR-ABL1 transcript associated with the t(9;22) chromosomal translocation usually seen in chronic myelogenous leukemia. Results are expressed as a percent ratio of BCR-ABL1 and further adjusted to the international scale (IS). For additional information, please refer to http://education. Bevii/faq/FAQ72 (This link is being provided for informational/edu cational purposes only.) Assay sensitivity is at least 4.5-logs below baseline BCR-ABL1 transcript levels but is dependent on quantity and quality of RNA used for testing and the cellularity of the sample. This test was developed and its analytical performance characteristics have been determined by [employer] [place], [place]. It has not been cleared or approved by the FDA. This assay has been validated pursuant to the CLIA regulations and is used for clinical purposes. Jess Boyd M.D. Staff Pathologist Test Performed by [facility], [employer] [facility], [address] [place] [address] El Sethi M.D., Ph.D., Director of Laboratories , CLIA [id number] Ordering Provider: AMINAH HORTON Report Released Date/Time: Jan 07, 2023 03:55 PM Reporting Lab: [address] [place] [address] Performing Lab: [address] BCR-ABL1,PCR 0.000 P210 BCR-ABL1 Not Detected BCR-ABL1/ABL %(IS) 0.000 Apr 21, 2023 11:28 AM [facility] COMPREHENSIVE METABOLIC PANEL Specimen Type: PLASMA No comment entered. Ordering Provider: AMINAH HORTON Report Released Date/Time: Jan 07, 2023 03:55 PM Reporting Lab: [address] [place] [address] Performing Lab: [address] [place] [address] CREATININE 1.1 mg/dL 0.7-1.3 UREA NITROGEN 23 [...] 66 >90 Apr 21, 2023 11:28 AM [facility] CBC (DIFF) Specimen Type: BLOOD No comment entered. Ordering Provider: AMINAH HORTON Report Released Date/Time: Jan 07, 2023 03:55 PM Reporting Lab: [address] [facility] [address] Performing Lab: [address] [facility] [address] WBC 4.2 10*3/uL 4.2-10.3 RBC 4.34 10*6/uL [...] and tobacco- related health factors from the [facility] where the Encounter took place. Current Smoking Status This section includes the most current smoking, or tobacco-related health factor, from the [place] facility where the Encounter took place. Date/Time Current Smoking Status Comment Facil ity Oct 03, 2022 09:00 AM VA-TOBACCO FORMER USER [facility] Tobacco Use History This section includes a history of the smoking, or tobacco-related health factors, that were collected on or before the date of the Encounter. The data comes from the [place] facility where the Encounter took place. Date/Time Smoking Status/Tobacco Use Comment F acility Oct 03, 2022 09:00 AM VA-TOBACCO QUIT 15 YRS OR MORE [facility] Sep 27, 2021 02:30 PM VA-TOBACCO FORMER USER [facility] Sep 27, 2021 02:30 PM VA-TOBACCO QUIT 15 YRS OR MORE [facility] Dec 09, 2019 12:30 PM VA-TOBACCO FORMER USER [facility] Dec 09, 2019 12:30 PM VA-TOBACCO QUIT 15 YRS OR MORE [facility] Oct 06, 2018 02:12 PM VA-TOBACCO FORMER USER [facility] Oct 06, 2018 02:12 PM VA-TOBACCO QUIT 15 YRS OR MORE [facility] Sep 17, 2017 02:55 PM FORMER TOBACCO USER 7Y OR GREATE R [facility] August 29, 2016 01:07 PM FORMER TOBACCO USER 7Y OR GREATE R [facility] Nov 06, 2015 01:10 PM FORMER TOBACCO USER 7Y OR GREATE R [facility] August 19, 2014 09:31 AM FORMER TOBACCO USER 7Y OR GREATE R [facility] August 31, 2013 08:06 AM FORMER TOBACCO USER 7Y OR GREATE R [facility] Jul 02, 2006 10:49 AM FORMER TOBACCO USER 7Y OR GREATE R [facility] Encounter Notes: All associated encounter notes This section contains the clinical notes associated to the Encounter. Date/Time Encounter Note(s) Provider Source Apr 23, 2023 08:58 AM FAN ENGINE ENGINEER REFER RAL NOTE: LOCAL TITLE: TRAVELING COORDINATOR NOTE STANDARD TITLE: FAN ENGINE ENGINEER REFERRAL NOTE DATE OF NOTE: APR 23, 2023@08:58 ENTRY DATE: APR 23, 2023@08:58:31 AUTHOR: MAIKOL TAPIA EXP COSIGNER: URGENCY: STATUS: COMPLETED Traveling Vet consult activity for: incoming/outgoing consult care coordination, communication &/or chart review. /anoop/ BREE KING TRAVELING COORDINATOR Signed: 04/23/2023 08:58 MAIKOL TAPIA [facility]
--- OUTSIDE RECORDS SUMMARY | 2023-10-08 05:34 | XMS_ITS | Encounter Summary ---
Author Name [facility] Organization Department of Vetera [facility] Address [address] [place] [address] Care Team Providers Care Research Biostatistician Name Role Phone KYLEIGH VERDUGO Primary Care [...] Bejarano's Name Patient's Relationship to Policy Bejarano [facility] (WNR) MEDICARE (M) [facility] P Apr 14, 2009 [id number] OSORIO POLLACK PATIENT [facility] (WNR) MEDICARE ADVANTAGE [facility] (WNR) Apr 14, 2009 DO NOT BILL [id number] [facility] [phone] OSORIO POLLACK PATIENT [facility] (WNR) MEDICARE ADVANTAGE [facility] (WNR) Apr 14, 2016 [id number] [phone] OSORIO POLLACK PATIENT MEDICARE PART D (WNR) MEDICARE (M) PART D Apr 14, 2021 PART D [id number] OSORIO POLLACK PATIENT Selected Encounter This section includes the information on record at [place] for the Encounter. Date/Time Encounter Type Encounter Description Reason Pro vider Source Jun 16, 2023 02:56 PM Outpatient Encounter [facility]ICAL [facility]Y [facility] Encounter Template Text not used by [place] Plan of Treatment: Future Appointments (+ 6 months) and Future Tests (+/- 45 days) The Plan of Treatment section includes future care activities for the patient from all [place] [facility] This section includes future appointments and future orders which are active, pending or scheduled. Future Appointments This section includes appointments that were scheduled to occur 6 months from the date of the Encounter, up to a maximum of 20 appointments. The data comes from all [facility] facilities. Appointment Date/Time Appointment Type Appointme nt Facility Name August 22, 2023 09:30 AM [facility] August 22, 2023 11:30 AM [facility] August 22, 2023 12:15 PM [facility] August 29, 2023 11:00 AM [facility] August 29, 2023 11:30 AM [facility] September 01, 2023 11:00 AM [facility] September 09, 2023 12:30 PM AMBULATORY - SURGERY [facility] Sep 30, 2023 11:00 AM [facility] Dec 02, 2023 09:30 AM [facility] Dec 09, 2023 01:30 PM AMBULATORY - MEDICINE [facility] Vital Signs: All taken on the encounter date This section contains inpatient and outpatient Vital Signs collected on the date of the Encounter. Date/Time Temperature Pulse Blood Pressure Respiratory Rate SP02 Pain Height Weight Body Mass Index Source Jun 16, 2023 03:11 PM 213 28 [facility] Social History: Smoking Status (Most current) and Tobacco Use (All prior to encounter date) This section includes the most current, and the historical, smoking and tobacco- related health factors from the [place] facility where the Encounter took place. Current Smoking Status This section includes the most current smoking, or tobacco-related health factor, from the [place] facility where the Encounter took place. Date/Time Current Smoking Status Soren reardon Oct 03, 2022 09:00 AM VA-TOBACCO FORMER USER [facility] Tobacco Use History This section includes a history of the smoking, or tobacco-related health factors, that were collected on or before the date of the Encounter. The data comes from the [place] facility where the Encounter took place. Date/Time Smoking Status/Tobacco Use Comment F acility Oct 03, 2022 09:00 AM VA-TOBACCO QUIT 15 YRS OR MORE [facility] Sep 27, 2021 02:30 PM VA-TOBACCO FORMER USER [facility] Sep 27, 2021 02:30 PM VA-TOBACCO QUIT 15 YRS OR MORE [facility] Dec 09, 2019 12:30 PM VA-TOBACCO FORMER USER [facility] Dec 09, 2019 12:30 PM VA-TOBACCO QUIT 15 YRS OR MORE [facility] Oct 06, 2018 02:12 PM VA-TOBACCO FORMER USER [facility] Oct 06, 2018 02:12 PM VA-TOBACCO QUIT 15 YRS OR MORE [facility] Sep 17, 2017 02:55 PM FORMER TOBACCO USER 7Y OR GREATE R [facility] August 29, 2016 01:07 PM FORMER TOBACCO USER 7Y OR GREATE R [facility] Nov 06, 2015 01:10 PM FORMER TOBACCO USER 7Y OR GREATE R [facility] August 19, 2014 09:31 AM FORMER TOBACCO USER 7Y OR GREATE R [facility] August 31, 2013 08:06 AM FORMER TOBACCO USER 7Y OR GREATE R [facility] Jul 02, 2006 10:49 AM FORMER TOBACCO USER 7Y OR GREATE R [facility] Encounter Notes: All associated encounter notes This section contains the clinical notes associated to the Encounter. Date/Time Encounter Note(s) Provider Source Jun 16, 2023 02:56 PM REPORT OF CONTACT: LOCAL TITLE: PATIENT CONTACT NOTE - PHARMACY STANDARD TITLE: REPORT OF CONTACT DATE OF NOTE: JUN 16, 2023@14:56 ENTRY DATE: JUN 16, 2023@14:56:59 AUTHOR: SARAI TRAVIS EXP COSIGNER: URGENCY: STATUS: COMPLETED Patient Contact Date & Time of Contact: Jun@14:57 Type of Contact: Telephone Reason for Contact: Patient requesting refill of DASATINIB. Through chart review, patient should have enough Dasatinib until 07/06/23. Called patient to discuss. Also pulled [facility] [employer] delivery confirmations. Original order was for 30 days supply with 2 refills and was sent from [place] on 04/04. Fill 2/3 delivery confirmed 05/04/23, picture of box on front step. Fill 3/3 delivery confirmed 05/17/23 with signature by patient. Confirmed patient is taking the medication correctly, 1 TABLET BY MOUTH DAILY. Questioned patient multiple times if he potentially had another supply elsewhere in his home or if anyone in his home might have picked up the medication. Patient confirms he does NOT have additional drug anywhere. Only has one tablet left. Action: Provider has signed next order, not scheduled to be due until 07/07/23. Will reset date and send early to prevent treatment breaks. Unclear what exactly happened with this fill. Patient unable to remember any details. Will monitor for repeated early refills in future. /anoop/ SARAI TRAVIS PharmD Signed: 06/16/2023 15:11 SARAI TRAVIS [facility]
--- OUTSIDE RECORDS SUMMARY | 2023-10-08 05:34 | XMS_ITS | Encounter Summary ---
Author Name [employer] [facility] [employer] Organization [facility] Address [address] [place] [address] Care Team Providers Care Assembler Radio And Electrical Name Role Phone KYLEIGH VERDUGO Primary Care [...] [facility] (WNR) MEDICARE (M) [facility] Apr 14, 2009 [id number] OSORIO POLLACK PATIENT [facility] (WNR) MEDICARE ADVANTAGE [facility] (WNR) Apr 14, 2009 DO NOT BILL [id number] [facility] [phone] OSORIO POLLACK PATIENT [facility] (WNR) MEDICARE ADVANTAGE [facility] (WNR) Apr 14, 2016 [id number] [phone] OSORIO POLLACK PATIENT MEDICARE PART D (WNR) MEDICARE (M) PART D Apr 14, 2021 PART D [id number] OSORIO POLLACK PATIENT Selected Encounter This section includes the information on record at [place] for the Encounter. Date/Time Encounter Type Encounter Description Reason Pro vider Source August 22, 2023 11:20 AM Outpatient Encounter PRIMARY CARE/MEDICINE IHE Encounter Template Text not used by [place] Plan of Treatment: Future Appointments (+ 6 months) and Future Tests (+/- 45 days) The Plan of Treatment section includes future care activities for the [facility] This section includes future appointments and future orders which are active, pending or scheduled. Future Appointments This section includes appointments that were scheduled to occur 6 months from the date of the Encounter, up to a maximum of 20 appointments. The data comes from all [facility]. Appointment Date/Time Appointment Type Appointme nt Facility Name August 29, 2023 11:00 AM AMBULATORY - MEDICINE [facility] August 29, 2023 11:30 AM AMBULATORY MEDICINE [facility] September 01, 2023 11:00 AM AMBULATORY MEDICINE [facility] September 09, 2023 12:30 PM AMBULATORY - SURGERY [facility] [place] Sep 30, 2023 11:00 AM AMBULATORY MEDICINE [facility] Dec 02, 2023 09:30 AM [facility] Dec 09, 2023 01:30 PM AMBULATORY MEDICINE [facility] Active, Pending, and Scheduled Orders This section includes a listing of several types of active, pending, and scheduled orders, including clinic medications orders, diagnostic test orders, procedure orders and consult orders; where the start date of the order is 45 days before the date of the Encounter or 45 days after the date of theEncounter. The data comes from all [facility]. Test Date/Time Test Type Test Details Facility Name Sep 30, 2023 11:54 AM Consult Order PODIATRY O UTPT Cons [employer] [facility] Lab Results: +/- 30 days of the encounter This section includes the Chemistry and Hematology Lab Results on record with [place] for the patient. Radiology Reports and Pathology Reports are provided separately, in subsequent sections. Lab Results This section contains the Chemistry/Hematology Results that were resulted 30 days before or 30 daysafter the date of the Encounter. Date/Time Source Result Type Result - Unit Interpretation Reference Range Comment August 22, 2023 12:53 PM [facility] URINALYSIS Specimen Type: URINE No comment entered. Ordering Provider: KYLEIGH VERDUGO Report Released Date/Time: August 22, 2023 11:52 AM Reporting Lab: [facility] [id number] Performing Lab: [facility] [id number] URINE COLOR COLORLESS SPECIFIC GRAVITY 1.007 1.003-1.03 5 URINE BILIRUBIN NEGATIVE NEGATIVE URINE KETONES NEGATIVE NEGATIVE URINE GLUCOSE NEGATIVE mg/dL S ee_Commen t URINE PROTEIN NEGATIVE mg/dL S ee_Commen t URINE PH 5.5 5.0-8.0 URINE WBC/HPF 1 /[HPF] 0-7 URINE BACTERIA NONE SEEN URINE RBC/HPF 1 /[HPF] 0-3 APPEARANCE CLEAR SQUAMOUS EPITHELIAL NONE SEEN /[HPF] URINE BLOOD NEGATIVE NEGATIVE URINE NITRITE NEGATIVE NEGATIVE LEUKOCYTE ESTERASE NEGATIVE NEGATIVE August 22, 2023 09:07 AM [facility] KAPPA/LAMBDA LC FREE,RATIO Specimen Type: SERUM Comment: Free kappa/lambda ratio in serum of normal individuals is 0.26-1.65. Excess production of free kappa or lambda chains can alter the ratio. Monoclonal free light chains are found in the serum of patients with multiple myeloma, Waldenstrom's macroglobulinemi a, mu-heavy chain disease, primary amyloidosis, light chain deposition disease, monoclonal gammopathy of undetermined significance, and lymphoproliferat donnie disorders. Measurement of free light chain concen- tration in serum is useful for diagnosis, prognosis, monitoring disease activity and following response to therapy of these disorders. Test Performed by [facility], [facility], [address] [place] [address] El Sethi M.D., Ph.D., Director of Laboratories , [facility] [id number] Ordering Provider: SAMAN DEMPSEY Report Released Date/Time: May 02, 2023 02:16 PM Reporting Lab: [facility] [id number] Performing Lab: [address] .KAPPA LT CHAIN,FREE 44.6 mg/L H 3.3-19.4 .LAMBDA LC,FREE 21.2 mg/L 5.7-26.3 .KAPPA/LAMBDA, FREE 2.10 H 0.26-1.65 August 22, 2023 09:07 AM [facility] ELP/IMMFIX,SERUM PANEL Specimen Type: SERUM No comment entered. Ordering Provider: SAMAN DEMPSEY Report Released Date/Time: May 02, 2023 02:16 PM Reporting Lab: [facility] [id number] Performing Lab: [facility] [address] PROTEIN,TOTAL 7.4 g/dL 6.0-8.3 M-SPIKE 1 0.21 g/dL .IDENTIFICATIO N 1 IgM kappa .ALBUMIN FRACTION 4.88 g/dL H 3.66-4.78 .ALPHA 1 FRACTION 0.23 g/dL 0.14-0.38 .ALPHA 2 FRACTION 0.64 g/dL 0.50-0.90 .BETA 1 FRACTION 0.36 g/dL 0.33-0.55 .BETA 2 FRACTION 0.25 g/dL 0.20-0.52 .GAMMA FRACTION 1.05 g/dL 0.58-1.72 .TOTAL PROTEIN 7.4 g/dL 6.0-8.3 .INTERPRETATIO N MONOCLONAL August 22, 2023 09:07 AM [facility] BCR-ABL1 MAJOR QT PCR Specimen Type: BLOOD No comment entered. Ordering Provider: SAMAN DEMPSEY Report Released Date/Time: May 02, 2023 02:16 PM Reporting Lab: [facility] [address] Performing Lab: [facility] [address] BCR-ABL1 MAJOR QT <0.0030 <0 BCR-ABL1 INTERP POSITIVE for BCR-ABL1 major fusion transcript August 22, 2023 09:07 AM [facility] CBC & DIFF Specimen Type: BLOOD Comment: Automated Differential Performed Ordering Provider: SAMAN DEMPSEY Report Released Date/Time: May 02, 2023 02:16 PM Reporting Lab: [facility] [address] Performing Lab: [facility] [address] WBC 4.80 10*3/uL 4.0-11.0 RBC 4.70 10*6/uL 4.6-6.2 HGB 14.7 g/dL 13.5-17.9 HCT 42.8 41-54 MCV 91.1 fL 80-100 MCH 31.3 pg 27-33 MCHC 34.3 g/dL 32.0-37.5 PLT 167 10*3/uL 150-400 MPV 9.0 fL 7.4-10.4 NEUT 51.7 40.0-80.0 LYMPHS 34.4 15.0-45.0 MONO 9.6 2.0-12.0 EOSINO 3.3 0.0-6.0 BASO 0.6 0.0-2.0 RDW 14.4 11.5-14.5 ABS LYMPH 1.65 10*3/uL 1.0-4.0 ABS MONO 0.46 10*3/uL 0.1-1.0 ABS NEUT 2.48 10*3/uL 2.0-7.7 ABS EOS 0.16 10*3/uL 0-0.5 ABS BASO 0.03 10*3/uL 0-0.2 IG(META,MYELO, PRO) 0.4 ABS IMMATURE GRAN 0.02 10*3/uL 0-0.1 August 22, 2023 09:07 AM [facility] COMPREHENSIVE METABOLIC PANEL+MG Specimen Type: PLASMA No comment entered. Ordering Provider: SAMAN DEMPSEY Report Released Date/Time: May 02, 2023 02:16 PM Reporting Lab: [facility] [address] Performing Lab: [facility] [address] CREATININE 1.1 mg/dL 0.7-1.2 UREA NITROGEN 20 mg/dL 8-26 GLUCOSE 120 mg/dL H 70-100 SODIUM 141 mmol/L 136-145 POTASSIUM 3.9 mmol/L 3.5-5.1 CHLORIDE 104 mmol/L 98-107 CO2 30 mmol/L H 22-29 CALCIUM 9.9 mg/dL 8.4-10.2 PROTEIN,TOTAL 7.9 g/dL 6.0-8.3 ALBUMIN 4.6 g/dL 3.5-5.2 BILIRUBIN, TOTAL 0.7 mg/dL 0.2-1.2 MAGNESIUM 2.1 mg/dL 1.6-2.6 ANION GAP 7 mmol/L 5-15 ALKALINE PHOSPHATASE 72 U/L 40-150 ALT/SGPT 8 U/L <55 AST/SGOT 20 U/L <34 .CREAT EGFR(CKD-EPI) 66 >60 Vital Signs: All taken on the encounter date This section contains inpatient and outpatient Vital Signs collected on the date of the Encounter. Date/Time Temperature Pulse Blood Pressure Respiratory Rate SP02 Pain Height Weight Body Mass Index Source August 22, 2023 11:34 AM 97 75 178/98 18 98 0 73 216.8 29 TRU [facility]AYAS [facility] Social History: Smoking Status (Most current) and Tobacco Use (All prior to encounter date) This section includes the most current, and the historical, smoking and tobacco- related health factors from the [place] facility where the Encounter took place. Current Smoking Status This section includes the most current smoking, or tobacco-related health factor, from the [place] facility where the Encounter took place. Date/Time Current Smoking Status Comment Facil ity August 22, 2023 11:30 AM [place]-TOBACCO QUIT 15 YRS OR MORE [facility] Tobacco Use History This section includes a history of the smoking, or tobacco-related health factors, that were collected on or before the date of the Encounter. The data comes from the [facility] where the Encounter took place. Date/Time Smoking Status/Tobacco Use Comment F acility August 22, 2023 11:30 AM VA-TOBACCO QUIT 15 YRS OR MORE [facility] Oct 03, 2022 09:00 AM VA-TOBACCO FORMER USER [facility] Oct 03, 2022 09:00 AM VA-TOBACCO QUIT [...] USER 7Y OR GREATE R [facility] Radiology Reports: +/- 30 days of the encounter Radiology Reports For cases when an order for radiology services may have been completed prior to the date of the Encounter, the report list includes the Radiology Reports that were completed up to 30 days before dateof the Encounter. For cases when an order for radiology services may have been completed after the date of the Encounter, the report list also includes the Radiology Reports that were completed up to30 days after date of the Encounter. The data comes from all [place] treatment facilities. Date/Time Radiology Report Provider Source August 22, 2023 12:16 PM KNEE RIGHT 4 VIEWS : OSORIO POLLACK [id number] -[id number] M Exm Date: AUGUST 22, 2023@12:16 Req Phys: KYLEIGH VERDUGO Loc: [facility] 4E (Req'g Loc) Img Loc: MAIN X-RAY Service: [place] [address] (Case [id number] COMPLETE) KNEE RIGHT 4 VIEWS (RAD Detailed) CPT:58631 Reason for Study: bilateral pain Clinical History: Report Status: Verified Date Reported: AUGUST 22, 2023 Date Verified: AUGUST 22, 2023 Hvac Sales Engineer E-Sig: Report: 4 views of each knee COMPARISON:07/03/2022 and 09/24/2022 CLINICAL HISTORY:Bilateral pain FINDINGS/ Impression: Right knee Trace knee joint effusion with likely intra-articular body projecting in the popliteal fossa. Severe narrowing at the lateral aspect of the patellofemoral compartment with extensive subchondral sclerosis and cyst formation. Lateral tilt of the patella. Persistent curvilinear ossification projecting at the medial aspect anterior to the superior trochlea which may related to remote trauma. Tiny medial greater than lateral compartment osteophytes. Left knee Tiny knee joint effusion. Heterotopic ossification or a small intra-articular body again seen within the suprapatellar knee joint. Persistent radiopaque foreign body projecting 3.8 cm superior to the patella on the lateral radiograph. Slight patella jamal and thickened soft tissues in the pre and infrapatellar regions. Recommend correlation for any evidence of injury to the extensor mechanism. Severe narrowing of the patellofemoral compartment/lateral trochlea. Slight lateral tilt of the patella. Subchondral sclerosis and cyst formation. Tiny medial and lateral compartment osteophytes. Very faint chondrocalcinosis. READING PHYSICIAN: Cleve Valentin M.D. -[id number] 08/22/2023 14:13 EDT [facility] [phone] (For Medical Practitioner Use Only) Attention Patients / Veterans: If you have questions or concerns about these test results, please contact your ordering provider or primary care team. Primary Interpreting Staff: RADIOLOGY,OUTSIDE SERVICE, Staff Physician / RADIOLOGY,OUTSIDE SERVICE [facility] August 22, 2023 12:16 PM KNEE LEFT 4 VIEWS: OSORIO POLLACK [id number] -[id number] M Exm Date: AUGUST 22, 2023@12:16 Req Phys: KYLEIGH VERDUGO Loc: [facility] 4E (Req'g Loc) Img Loc: MAIN X-RAY Service: [place] [address] (Case [id number] COMPLETE) KNEE LEFT 4 VIEWS (RAD Detailed) CPT:07228 Reason for Study: bilateral pain Clinical History: Report Status: Verified Date Reported: AUGUST 22, 2023 Date Verified: AUGUST 22, 2023 Hvac Sales Engineer E-Sig: Report: 4 views of each knee COMPARISON:07/03/2022 and 09/24/2022 CLINICAL HISTORY:Bilateral pain FINDINGS/ Impression: Right knee Trace knee joint effusion with likely intra-articular body projecting in the popliteal fossa. Severe narrowing at the lateral aspect of the patellofemoral compartment with extensive subchondral sclerosis and cyst formation. Lateral tilt of the patella. Persistent curvilinear ossification projecting at the medial aspect anterior to the superior trochlea which may related to remote trauma. Tiny medial greater than lateral compartment osteophytes. Left knee Tiny knee joint effusion. Heterotopic ossification or a small intra-articular body again seen within the suprapatellar knee joint. Persistent radiopaque foreign body projecting 3.8 cm superior to the patella on the lateral radiograph. Slight patella jamal and thickened soft tissues in the pre and infrapatellar regions. Recommend correlation for any evidence of injury to the extensor mechanism. Severe narrowing of the patellofemoral compartment/lateral trochlea. Slight lateral tilt of the patella. Subchondral sclerosis and cyst formation. Tiny medial and lateral compartment osteophytes. Very faint chondrocalcinosis. READING PHYSICIAN: Cleve Valentin M.D. -[phone] 08/22/2023 14:13 EDT [facility] [phone] (For Medical Practitioner Use Only) Attention Patients / Veterans: If you have questions or concerns about these test results, please contact your ordering provider or primary care team. Primary Interpreting Staff: RADIOLOGY,OUTSIDE SERVICE, Staff Physician / RADIOLOGY,OUTSIDE SERVICE [facility] Encounter Notes: All associated encounter notes This section contains the clinical notes associated to the Encounter. Date/Time Encounter Note(s) Provider Source August 22, 2023 11:21 AM ADVANCE DIRECTIVE: LOCAL TITLE: AD NOTIFICATION AND SCREENING STANDARD TITLE: ADVANCE DIRECTIVE DATE OF NOTE: AUGUST 22, 2023@11:21 ENTRY DATE: AUGUST 22, 2023@11:21:06 AUTHOR: MARU BURNHAM EXP COSIGNER: URGENCY: STATUS: COMPLETED ADVANCE DIRECTIVE NOTIFICATION: I was unable to give the patient written notification of the following rights because: Comment: pt refused ADVANCE DIRECTIVE SCREENING NOT PERFORMED: It was not possible to perform the advance directive screening because: pt refused /anoop/ MARU BURNHAM MSA Signed: 08/22/2023 11:21 MARU BURNHAM [facility]
--- OUTSIDE RECORDS SUMMARY | 2023-10-08 05:34 | XMS_ITS | Encounter Summary ---
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 Name Role Phone KYLEIGH VERDUGO Primary Care [...] Bejarano's Name Patient's Relationship to Policy Bejarano [facility] (WNR) MEDICARE (M) BLUE EDICA RE VALUE P Apr 14, 2009 [id number] OSORIO POLLACK PATIENT [facility] (WNR) MEDICARE ADVANTAGE [facility] ([facility] Apr 14, 2009 DO NOT BILL [id number] [facility] OSORIO POLLACK PATIENT [facility] (WNR) MEDICARE ADVANTAGE [facility] (WN) Apr 14, 2016 [id number] [phone] OSORIO POLLACK PATIENT MEDICARE PART D (WN) MEDICARE (M) PART D Apr 14, 2021 PART D [id number] [facility] OSORIO POLLACK PATIENT Selected Encounter This section includes the information on record at OR for the Encounter. Date/Time Encounter Type Encounter Description Reason Provider Source August 22, 2023 11:30 AM OFFICE O/P EST MOD 30 MIN PRIMARY CARE/MEDICINE ICD-10-CM M13.869 Other specified arthritis, unspecified knee VERDUGOKYLEIGH Trevon Encounter Template Text not used by OR Assessments - Encounter Diagnoses This section includes the primary and secondary diagnoses documented for the Encounter. Date/Time Primary/Secondary Diagnosis Diagnosis Name Provider Source August 22, 2023 12:39 PM PRIMARY Other specified arthritis, unspecified knee LUCINAFELICITASMANUEL [facility] August 22, 2023 12:39 PM SECONDARY Retention of urine, unspecified KYLEIGH VERDUGO [facility] Plan of Treatment: Future Appointments (+ 6 months) and Future Tests (+/- 45 days) The Plan of Treatment section includes future care activities for the patient [facility] This section includes future appointments and future orders which are active, pending or scheduled. Future Appointments This section includes appointments that were scheduled to occur 6 months from the date of the Encounter, up to a maximum of 20 appointments. The data comes from all [facility]. Appointment Date/Time Appointment Type Appointme nt Facility Name August 29, 2023 11:00 AM AMBULATORY - MEDICINE [facility] August 29, 2023 11:30 AM AMBULATORY - MEDICINE [facility] September 01, 2023 11:00 AM AMBULATORY - MEDICINE [facility] September 09, 2023 12:30 PM AM[facility]UL[facility]ORY [facility] SURGERY [facility] Sep 30, 2023 11:00 AM AMBULATORY - MEDICINE [facility] Dec 02, 2023 09:30 AM [facility] Dec 09, 2023 01:30 PM AMBULATORY MEDICINE [facility] Active, Pending, and Scheduled Orders This section includes a listing of several types of active, pending, and scheduled orders, including clinic medications orders, diagnostic test orders, procedure orders and consult orders; where the start date of the order is 45 days before the date of the Encounter or 45 days after the date of theEncounter. The data comes from all [facility]. Test Date/Time Test Type Test Details Facility Name Sep 30, 2023 11:54 AM Consult Order PODIATRY O UTPT Cons Guidance And Control System Engineer's Choice [facility] Lab Results: +/- 30 days of [...] Range Comment August 22, 2023 12:53 PM [facility] URINALYSIS Specimen Type: URINE No comment entered. Ordering Provider: KYLEIGH VERDUGO Report Released Date/Time: August 22, 2023 11:52 AM Reporting Lab: [facility] [id number] Performing Lab: [facility] [id number] URINE COLOR COLORLESS SPECIFIC GRAVITY 1.007 1.003-1.03 [...] NEGATIVE NEGATIVE August 22, 2023 09:07 AM [facility] KAPPA/LAMBDA LC FREE,RATIO Specimen Type: SERUM Comment: [...] therapy of these disorders. Test Performed by SubmittableJordyn, TRAN.SL [facility], [id number] [place], [place] El Sethi M.D., Ph.D., Director of Laboratories , CLIA [id number] Ordering Provider: SAMAN DEMPSEY Report Released Date/Time: May 02, 2023 02:16 PM Reporting Lab: [facility] [id number] Performing Lab: [facility] [address] [facility] [id number] .KAPPA LT CHAIN,FREE 44.6 mg/L H 3.3-19.4 .LAMBDA LC,FREE 21.2 mg/L 5.7-26.3 .KAPPA/LAMBDA, FREE 2.10 H 0.26-1.65 August 22, 2023 09:07 AM [facility] ELP/IMMFIX,SERUM PANEL Specimen Type: SERUM No comment entered. Ordering Provider: SAMAN DEMPSEY Report Released Date/Time: May 02, 2023 02:16 PM Reporting Lab: [facility] [address] Performing Lab: [facility] [address] PROTEIN,TOTAL 7.4 g/dL 6.0-8.3 M-SPIKE 1 0.21 g/dL .IDENTIFICATIO N 1 IgM kappa .ALBUMIN FRACTION 4.88 g/dL H 3.66-4.78 .ALPHA 1 FRACTION 0.23 g/dL 0.14-0.38 .ALPHA 2 FRACTION 0.64 g/dL 0.50-0.90 .BETA 1 FRACTION 0.36 g/dL 0.33-0.55 .BETA 2 FRACTION 0.25 g/dL 0.20-0.52 .GAMMA FRACTION 1.05 g/dL 0.58-1.72 .TOTAL PROTEIN 7.4 g/dL 6.0-8.3 .INTERPRETATIO N MONOCLONAL August 22, 2023 09:07 AM [facility] BCR-ABL1 MAJOR QT PCR Specimen Type: BLOOD No comment entered. Ordering Provider: SAMAN DEMPSEY Report Released Date/Time: May 02, 2023 02:16 PM Reporting Lab: [facility] [id number] Performing Lab: [facility] [address] BCR-ABL1 MAJOR QT <0.0030 <0 BCR-ABL1 INTERP POSITIVE for BCR-ABL1 major fusion transcript August 22, 2023 09:07 AM [facility] COMPREHENSIVE METABOLIC PANEL+MG Specimen Type: PLASMA No comment entered. Ordering Provider: SAMAN DEMPSEY Report Released Date/Time: May 02, 2023 02:16 PM Reporting Lab: [facility] [address] Performing Lab: [facility] [address] CREATININE 1.1 mg/dL 0.7-1.2 UREA NITROGEN 20 [...] 20 U/L <34 .CREAT EGFR(CKD-EPI) 66 >60 August 22, 2023 09:07 AM [facility] CBC & DIFF Specimen Type: BLOOD Comment: Automated Differential Performed Ordering Provider: SAMAN DEMPSEY Report Released Date/Time: May 02, 2023 02:16 PM Reporting Lab: [facility] [address] Performing Lab: [facility] [address] WBC 4.80 10*3/uL 4.0-11.0 RBC 4.70 10*6/uL [...] 178/98 18 98 0 73 216.8 29 [place] [facility] Social History: Smoking Status (Most current) and Tobacco Use (All prior to encounter date) This section includes the most current, and the historical, smoking and tobacco- related health factors from the OR facility where the Encounter took place. Current Smoking Status This section includes the most current smoking, or tobacco-related health factor, from the OR facility where the Encounter took place. Date/Time Current Smoking Status Comment Facil ity August 22, 2023 11:30 AM VA-TOBACCO FORMER USER [facility] Tobacco Use History This section includes a history of the smoking, or tobacco-related health factors, that were collected on or before the date of the Encounter. The data comes from the OR facility where the Encounter took place. Date/Time Smoking Status/Tobacco Use Comment F acility August 22, 2023 11:30 AM VA-TOBACCO QUIT 15 YRS OR MORE [facility] Oct 03, 2022 09:00 AM VA-TOBACCO FORMER USER [facility] Oct 03, 2022 09:00 AM VA-TOBACCO QUIT 15 YRS OR MORE [facility] Sep 27, 2021 02:30 PM VA-TOBACCO FORMER USER [facility] Sep 27, 2021 02:30 PM VA-TOBACCO QUIT 15 YRS OR MORE [facility] Dec 09, 2019 12:30 PM VA-TOBACCO FORMER USER [facility] Dec 09, 2019 12:30 PM VA-TOBACCO QUIT 15 YRS OR MORE [facility] Oct 06, 2018 02:12 PM VA-TOBACCO FORMER USER [facility] Oct 06, 2018 02:12 PM VA-TOBACCO QUIT 15 YRS OR MORE [facility] Sep 17, 2017 02:55 PM FORMER TOBACCO USER 7Y OR GREATE R [facility] August 29, 2016 01:07 PM FORMER TOBACCO USER 7Y OR GREATE R [facility] Nov 06, 2015 01:10 PM FORMER TOBACCO USER 7Y OR MONAEE R [facility] August 19, 2014 09:31 AM FORMER TOBACCO USER 7Y OR MONA[place] R [facility] August 31, 2013 08:06 AM FORMER TOBACCO USER 7Y OR MONA[place] R [facility] Jul 02, 2006 10:49 AM FORMER TOBACCO USER 7Y OR ARIAN R [facility] Radiology Reports: +/- 30 days of the [...] the Encounter. The data comes from [facility] facilities. Date/Time Radiology Report Provider Source August 22, 2023 12:16 PM KNEE RIGHT 4 VIEWS : OSORIO POLLACK [id number] -[id number] M Exm Date: AUGUST 22, 2023@12:16 Req Phys: KYLEIGH VERDUGO Pat Loc: [facility] 4E (Req'g Loc) Img Loc: MAIN X-RAY Service: [place] [address] (Case [id number] COMPLETE) KNEE RIGHT 4 VIEWS (RAD Detailed) CPT:84296 Reason for Study: bilateral pain Clinical History: Report Status: Verified Date Reported: AUGUST 22, 2023 Date Verified: AUGUST 22, 2023 Ultrasonic Tester E-Sig: Report: 4 views of each knee [...] faint chondrocalcinosis. READING PHYSICIAN: Cleve Valentin M.D. -[id number] 08/22/2023 14:13 EDT [facility] [phone] (For Medical Practitioner Use Only) Attention Patients / Veterans: If you have questions or concerns about these test results, please contact your ordering provider or primary care team. Primary Interpreting Staff: RADIOLOGY,OUTSIDE SERVICE, Staff Physician / RADIOLOGY,OUTSIDE SERVICE [facility] August 22, 2023 12:16 PM KNEE LEFT 4 VIEWS: OSORIO POLLACK [id number] -1940 M Ex Date: AUGUST 22, 2023@12:16 Req Phys: KYLEIGH VERDUGO Loc: [facility] 4E (Req'g Loc) Img Loc: MAIN X-RAY Service: [place] [address] (Case [id number] COMPLETE) KNEE LEFT 4 VIEWS (RAD Detailed) CPT:56132 Reason for Study: bilateral pain Clinical History: Report Status: Verified Date Reported: AUGUST 22, 2023 Date Verified: AUGUST 22, 2023 Ultrasonic Tester E-Sig: Report: 4 views of each knee [...] faint chondrocalcinosis. READING PHYSICIAN: Cleve Valentin M.D. -[id number] 08/22/2023 14:13 EDT [facility] [phone] (For Medical Practitioner Use Only) Attention Patients / Veterans: If you have questions or concerns about these test results, please contact your ordering provider or primary care team. Primary Interpreting Staff: RADIOLOGY,OUTSIDE SERVICE, Staff Physician / RADIOLOGY,OUTSIDE SERVICE [facility] Encounter Notes: All associated encounter notes This section contains the clinical notes associated to the Encounter. Date/Time Encounter Note(s) Provider Source August 22, 2023 03:47 PM LETTERS: LOCAL TITLE: FOLLOW UP RESULTS LETTER STANDARD TITLE: LETTERS DATE OF NOTE: AUGUST 22, 2023@15:47 ENTRY DATE: AUGUST 22, 2023@15:48 AUTHOR: KYLEIGH VERDUGO EXP COSIGNER: URGENCY: STATUS: COMPLETED [facility] [address] [place] [address] August OSORIO POLLACK [address] [id number] Dear Satartia: I am writing to inform you of the results of testing that you had done recently at the [facility]. Specimen: URINE. UA [id number] Specimen Collection Date: August 22, 2023@12:53 Test name Result units Ref. range Site Code APPEARANCE CLEAR [618] URINE COLOR COLORLESS [618] SPECIFIC GRAVITY 1.007 1.003 - 1.035 [618] URINE PH 5.5 5.0 - 8.0 [618] URINE GLUCOSE NEGATIVE mg/dL Ref: <30 [618] URINE BILIRUBIN NEGATIVE Ref: NEGATIVE [618] URINE KETONES NEGATIVE Ref: NEGATIVE [618] URINE BLOOD NEGATIVE Ref: NEGATIVE [618] URINE PROTEIN NEGATIVE mg/dL Ref: <20 [618] URINE NITRITE NEGATIVE Ref: NEGATIVE [618] LEUKOCYTE ESTERASE NEGATIVE Carla/uL Ref: NEGATIVE [618] URINE WBC/HPF 1 /HPF 0 - 7 [618] URINE RBC/HPF 1 /HPF 0 - 3 [618] SQUAMOUS EPITHELIAL NONE SEEN /HPF [618] URINE BACTERIA NONE SEEN [618] Knees x-rays: Impression: Right knee Trace knee joint effusion [...] and lateral compartment osteophytes. Very faint chondrocalcinosis. Additional Comments: Please find above the results of your urinalysis and knees x-rays performed today. The former is negative for infection or blood. I have requested a urology consult for your urinary retention. Please go to the ER if worsening symptoms. The knee x-rays show degenerative joint disease. On reviewing yor records on [facility], I found that your knees injections were given on 04/21/23. So technically you're not due until December. Please let me know whether you will be in the area then to submit the orthopedic consult. Thanks. If you have any further questions or problems, please contact our nursing staff or provider at the following number: [phone]. Sincerely, KYLEIGH VERDUGO MD PHYSICIAN KYLEIGH VERDUGO [facility] August 22, 2023 11:42 AM INTERNAL MEDICINE NOTE: LOCAL TITLE: MEDICINE CLINIC NOTE STANDARD TITLE: INTERNAL MEDICINE NOTE DATE OF NOTE: AUGUST 22, 2023@11:42 ENTRY DATE: AUGUST 22, 2023@11:42:31 AUTHOR: KYLEIGH VERDUGO COSIGNER: URGENCY: STATUS: COMPLETED Nurses notes from today reviewed. OSORIO POLLACK is a 83 year old MALE. Reason for the visit:knee injections HPI: - Had knee injection at [facility] by ortho q/6 mo. Requests that here. - Needs urination fixed. x 1-2 y. Never been diagnosed/treated for BPH. ROS: Feels well No weight loss No fevers or chills No Chest Pain No Shortness of breath No orthopnea or PND No peripherial edema No nausea or vomiting No change in bowel habits or stools No diarrhea or constipation No bleeding No urinary hesitancy or frequency No hypoglycemia Remainder of review of systems negative. Other/Comments:as above Active problems - Computerized Problem List is the source for the followin. History of immune thrombocytopenia (SNOMED CT 537163414) 2. Type 2 diabetes mellitus 3. Skin cancer (SNOMED CT 422328098) - H/O SCCA in 2010. 4. Hearing loss (SNOMED CT 55078210) 5. Osteoarthritis - S/P left knee arthroscopy in 1994. - S/P right shoulder decompression in 2002. 6. Trigger finger (acquired) 7. Benign prostatic hypertrophy with outflow obstruction 8. Chronic myeloid leukemia (SNOMED CT 28017541) 9. Chronic low back pain 10. Hyperlipidemia 11. Solitary nodule of lung 12. Insomnia 13. ECG: ventricular ectopics 14. Proteinuria 15. Inguinal hernia 16. Monoclonal paraproteinemia 17. Pain of bilateral knee regions Allergies: FLUCONAZOLE (August 29, 2016) LISINOPRIL (Nov 30, 2018) Medications: Active and Recently Outpatient Medications (excluding Supplies): Active Outpatient Medications Status 1) DASATINIB 50MG TAB TAKE ONE TABLET BY MOUTH EVERY DAY ACTIVE - AVOID GRAPEFRUIT PRODUCTS. DO NOT CRUSH OR CUT. *SWALLOW WHOLE* 2) FLUOCINOLONE ACETONIDE 0.01% TOP SOLN APPLY TO SCALP ACTIVE AND EARS TOPICALLY TWICE A DAY NEEDED FOR PRURITIS EXTERNAL USE ONLY 3) KETOCONAZOLE 2% SHAMPOO SHAMPOO SCALP TOPICALLY 3 ACTIVE TIMES WEEKLY SEBORRHEIC DERMATITIS *LATHER FOR 5 MINUTES THEN RINSE* 4) LOPERAMIDE HCL 2MG CAP TAKE ONE CAPSULE BY MOUTH HOLD EVERY 2 HOURS NEEDED FOR DIARRHEA- TAKE 2 CAPSULES AT ONSET THEN 1 CAPSULE EVERY 2 HOURS UNTIL NO DIARRHEA FOR 12 HOURS. MAXIMUM 8 CAPSULES/24HOURS. 5) PROCHLORPERAZINE MALEATE 10MG TAB TAKE ONE TABLET BY HOLD MOUTH FOUR TIMES A DAY NEEDED FOR NAUSEA AND VOMITING. DO NOT TAKE MORE THAN 40 MG PER DAY. Family /Social hx (x ) not applicable to todays visit. Tobacco: () Pt smokes or uses tobacco products and was counseled to d/c. The patient was offered medication to assist with smoking cessation. The patient was also offered a referral to a smoking cessation program. () Pt is not using tobacco products now but has used them in the past year. (Pt counseled to remain abstinent.) () Pt hasn't used tobacco products for a year or more. () Pt has never used tobacco products. () ETOH use () Other substance use () adviced to quit EXAM: VS Temp: 97 F [36.1 C] (08/22/2023 11:34) BP: 178/98 (08/22/2023 11:34) HR: 75 (08/22/2023 11:34) RR: 18 (08/22/2023 11:34) Pain: 0 (08/22/2023 11:34) Weight:WEIGHTS IN LAST 6 MONTHS: 216.8 (AUGUST 22, 2023@11:34:58) 213 (JUN 16, 2023@15:11:29) GRAL: NAD MENTAL STATUS:alert/cooperative/kavita ented Data/Labs: U/A ordered. 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 (x ) Result letter will be sent. Assessment and plan: 1) Bilat knee OA: Per pt's report apperently getting rooster injections [place]. - Bilat x-ray today. - [facility] records reviewd. Pt was seen by orhtopedics and received a bilat Hyaluronate injection w/o US on 04/21/23. Technically pt not due until December for next treatment. Will check with patient if planning to be in town at that time. 2) LUTS: Reportedly never evaluated before. - U/A ordered. - PVR= 397 ml - Pt informed and having a indweling bladder catheter was adviced. Pt adamantly declined. Voiced understanding of risks including acute urinary retention, kidney damage, infection. - Trial with Tamsulosin. - Urology consult. ( x) Patient/Caregiver indicates readiness to learn, verbalizes understanding, agreement and satisfaction with the treatment plan. Patient/Caregiver doesn't have any further questions today. Total time spent on patient care including chart/diagnostic/test review, patient interview/examination, ordering medications/tests, interpreting results,and counseling/documentation was 35 minutes. /anoop/ KYLEIGH VERDUGO MD PHYSICIAN Signed: 08/22/2023 12:39 KYLEIGH VERDUGO [facility] August 22, 2023 11:37 AM INTERNAL MEDICINE OUTPATIENT NOTE: LOCAL TITLE: MEDICINE CLINIC NURSING NOTE STANDARD TITLE: INTERNAL MEDICINE OUTPATIENT NOTE DATE OF NOTE: AUGUST 22, 2023@11:37 ENTRY DATE: AUGUST 22, 2023@11:37:33 AUTHOR: ABHILASH MARKHAM EXP COSIGNER: URGENCY: STATUS: COMPLETED MEDICINE CLINIC NURSING NOTE Has ADDENDA TYPE OF VISIT: Appointment Check In Type of appointment: In-person appointment REASON FOR VISIT: annual ALLERGIES: FLUCONAZOLE (August 29, 2016) LISINOPRIL (Nov 30, 2018) VITAL SIGNS: Blood Pressure: 178/98 (08/22/2023 11:34) Pulse: 75 (08/22/2023 11:34) Respiration: 18 (08/22/2023 11:34) Temperature: 97 F [36.1 C] (08/22/2023 11:34) Weight: 216.8 lb [98.34 kg] (08/22/2023 11:34) Height: 73 in [185.4 cm] (08/22/2023 11:34) BMI: 28.7 O2 Sat: 98% (08/22/2023 11:34) Pain: 0 (08/22/2023 11:34) PAIN SCREEN: Patient is not having significant [...] THEN RINSE* LOPERAMIDE HCL 2MG CAP TAKE ONE CAPSULE BY MOUTH EVERY 2 HOLD HOURS NEEDED FOR DIARRHEA- TAKE 2 CAPSULES AT ONSET THEN 1 CAPSULE EVERY 2 HOURS UNTIL NO DIARRHEA FOR 12 HOURS. MAXIMUM 8 CAPSULES/24HOURS. PROCHLORPERAZINE MALEATE 10MG TAB TAKE ONE TABLET BY MOUTH HOLD FOUR TIMES A DAY NEEDED FOR NAUSEA AND VOMITING. DO NOT TAKE MORE THAN 40 MG PER DAY. LABS COVID-19 Immunization: Refused Moderna Monovalent COVID-19 vaccine Immunization: COVID-19 (MODERNA), MRNA, LNP-S, PF, 50 MCG/0.5 ML (AGES 12+ YEARS) Refusal Reason: PATIENT DECISION Patient refuses all immunization(s) in the COVID-19 group Date Documented: 08/22/23 11:38 Suicide Screen: C-SSRS Screening [place] Suicide Severity Rating Scale (C-SSRS) screener 1. Over the past month, have you wished you were or wished you could go to sleep and not wake up? No 2. Over the past month, have you had any actual thoughts of killing yourself? No 3. Over the past month, have you been thinking about how you might do this? Response not required due to responses to other questions. 4. Over the past month, have you had these thoughts and had some intention of acting on them? Response not required due to responses to other questions. 5. Over the past month, have you started to work out or worked out the details of how to kill yourself? Response not required due to responses to other questions. 6. If yes, at any time in the past month did you intend to carry out this plan? Response not required due to responses to other questions. 7. In your lifetime, have you ever done anything, started to do anything, or prepared to do anything to end your life (for example, collected pills, obtained a gun, gave away valuables, went to the roof but didn't jump)? No 8. If YES, was this within the past 3 months? Response not required due to responses to other questions. Nursing Annual Screening: Fall History Screen During the past 12 months, have you had any falls? Patient does not report any falls in the past 12 months. MEDICATIONS: Patient does not have an active prescription for one of the following medications: Antihypertensives, Antidepressants, Antipsychotics, Diuretics, or Opioid Analgesics (Contolled Substance medications used for pain). Script Talk Screen Are you able to read your prescription bottles with your glasses, magnifiers or other aids? Yes or patient not taking any prescriptions. Skin Screen Patient reports any current pressure ulcers, a history of pressure ulcers, or a wound from a medical lab scientist or Patient is bed-confined or a wheelchair-user or Patient requires assistance to transfer/change position No, Skin Screen is Negative Home Abuse/Violence Screen Is your home free of abuse and violence? Yes MOVE! Program Screen Body Mass Index (BMI)= 28.7 [place]: Collection DT Specimen Test Name Result Units Ref Range 12/31/2022 10:00 BLOOD !! HEMOGLOBIN A1C 5.4 % 4.0 - 6.0 !! Indicates COMMENTS AVAILABLE...Refer to Interim Lab Report. [facility] Hgb A1C: No data available [place] Hgb A1C: No data available Point of Care Hgb A1C: POC HGB A1C____ Outpatient Nutrition Screen Body Mass Index (BMI)= 28.7 [place]: Collection DT Specimen Test Name Result Units Ref Range 12/31/2022 10:00 BLOOD !! HEMOGLOBIN A1C 5.4 % 4.0 - 6.0 !! Indicates COMMENTS AVAILABLE...Refer to Interim Lab Report. [facility] Hgb A1C: No data available [place] Hgb A1C: No data available Point of Care Hgb A1C: POC HGB A1C____ Is patient's BMI less than 18.5? No Does patient have swallowing, coughing, or chewing problems affecting oral intake? No Has patient experienced unplanned weight loss or gain greater than 10 pounds over the last 2 months? No Is patient's Hgb A1C (Glycosylated Hemoglobin) greater than 9.5? Information not available Is patient receiving Total Parenteral Nutrition (TPN) or Tube Feedings? No Patient Health Education Screen BARRIERS/SPECIAL NEEDS: Hearing limitations Visual limitations PREFERRED STYLE OF LEARNING: No preference stated Client Assistive Service (JACOB) Screen Does the patient require assistance with outpatient visit? No Tobacco Use Screening: The patient is a former tobacco user. The patient quit fifteen or more years ago. Homelessness/Food Insecurity Screen: In the past 2 months, have you been living in stable housing that you own, rent, or stay in as part of a household? Yes - Living in stable housing. Are you worried or concerned that in the next 2 months you may NOT have stable housing that you own, rent, or stay in as part of a household? No - Not worried about housing near future The reports the following: Within the past 12 months, you worried whether your food would run out before you got money to buy more. Never true Within the past 12 months, the food you bought just didn't last and you didn't have money to get more. Never true Food Assistance Programs [facility] Food Assistance Programs [facility] /anoop/ ABHILASH MARKHAM LPN Signed: 08/22/2023 11:40 08/22/2023 ADDENDUM STATUS: COMPLETED EDUCATION: PARTICIPANT(s): Clean Catch Urine Instructed in collection of clean catch urine. Printed instructions provided and participant(s) is able to repeat these instructions accurately. Urinalysis sent to lab /anoop/ ABHILASH MARKHAM LPN Signed: 08/22/2023 12:55 ABHILASH MARKHAM [facility]
--- OUTSIDE RECORDS SUMMARY | 2023-10-08 05:36 | XMS_ITS | Encounter Summary ---
Author Name [facility] Organization [facility] Address [address] [place] [address] Care Team Providers Care Soda Drier Feeder Name Role Phone KYLEIGH VERDUGO Primary Care [...] [facility] (WNR) MEDICARE (M) [facility] Apr 14, 2009 [id number] OSORIO POLLACK PATIENT [facility] (WNR) MEDICARE ADVANTAGE [facility] (WNR) Apr 14, 2009 DO NOT BILL [id number] [facility] OSORIO POLLACK PATIENT BS [facility] (WNR) MEDICARE ADVANTAGE [facility] (WNR) Apr 14, 2016 [id number] [phone] OSORIO POLLACK PATIENT MEDICARE PART D (WNR) MEDICARE (M) PART D Apr 14, 2021 PART D [id number] [facility] OSORIO POLLACK PATIENT Selected Encounter This section includes the information on record at [place] for the Encounter. Date/Time Encounter Type Encounter Description Reason Pro vider Source IHE Encounter Template Text not used by [facility]
--- OUTSIDE RECORDS SUMMARY | 2023-10-08 05:36 | XMS_ITS | Encounter Summary ---
Author Name [facility] Organization [facility] Address [address] [place] [address] Care Team Providers Care Chart Writer Name Role Phone KYLEIGH VERDUGO Primary Care [...] Bejarano's Name Patient's Relationship to Policy Bejarano [facility] (WNR) MEDICARE (M) [facility] Apr 14, 2009 [id number] OSORIO POLLACK PATIENT [facility] (WNR) MEDICARE ADVANTAGE [facility] (WNR) Apr 14, 2009 DO NOT BILL [id number] [facility] OSORIO POLLACK PATIENT [facility] (WNR) MEDICARE ADVANTAGE [facility] (WNR) Apr 14, 2016 [id number] [phone] OSORIO POLLACK PATIENT MEDICARE PART D (WNR) MEDICARE (M) PART D Apr 14, 2021 PART D [id number] OSORIO POLALCK PATIENT Selected Encounter This section includes the information on record at [place] for the Encounter. Date/Time Encounter Type Encounter Description Reason Provider Source August 29, 2023 11:30 AM Outpatient Encounter GENERAL INTERNAL MEDICINE CHATO TOM IHTrevon Encounter Template Text not used by [place] Plan of Treatment: Future Appointments (+ 6 months) and Future Tests (+/- 45 days) The Plan of Treatment section includes future care activities for the patient from [facility] [place] [facility] This section includes future appointments and future orders which are active, pending or scheduled. Future Appointments This section includes appointments that were scheduled to occur 6 months from the date of the Encounter, up to a maximum of 20 appointments. The data comes from all [facility]. Appointment Date/Time Appointment Type Appointme nt Facility Name September 01, 2023 11:00 AM AMBULATORY - MEDICINE [facility] September 09, 2023 12:30 PM AMBULATORY - SURGERY [facility] Sep 30, 2023 11:00 AM AMBULATORY MEDICINE [facility] Dec 02, 2023 09:30 AM [facility] Dec 09, 2023 01:30 PM AMBULATORY MEDICINE [facility] Feb 26, 2024 10:00 AM [facility] Active, Pending, and Scheduled Orders This section includes a listing of several types of active, pending, and scheduled orders, including clinic medications orders, diagnostic test orders, procedure orders and consult orders; where the start date of the order is 45 days before the date of the Encounter or 45 days after the date of theEncounter. The data comes from all [facility]. Test Date/Time Test Type Test Details Facility Name Sep 30, 2023 11:54 AM Consult Order PODIATRY O UTPT Cons Family Day Care Worker's Choice [facility] Lab Results: +/- 30 days [...] Range Comment August 22, 2023 12:53 PM [facility] URINALYSIS Specimen Type: URINE No comment entered. Ordering Provider: KYLEIGH VERDUGO Report Released Date/Time: August 22, 2023 11:52 AM Reporting Lab: [facility] [address] [facility] [id number] Performing Lab: [facility] [id number] URINE COLOR COLORLESS SPECIFIC GRAVITY 1.007 1.003-1.03 [...] NEGATIVE NEGATIVE August 22, 2023 09:07 AM [facility] KAPPA/LAMBDA LC FREE,RATIO Specimen Type: SERUM Comment: [...] therapy of these disorders. Test Performed by [facility], [address] [place] [address] El Sethi M.D., Ph.D., Director of Laboratories , [place] [id number] Ordering Provider: SAMAN DEMPSEY Report Released Date/Time: May 02, 2023 02:16 PM Reporting Lab: [facility] [id number] Performing Lab: [address] .KAPPA LT CHAIN,FREE 44.6 mg/L H 3.3-19.4 .LAMBDA LC,FREE 21.2 mg/L 5.7-26.3 .KAPPA/LAMBDA, FREE 2.10 H 0.26-1.65 August 22, 2023 09:07 AM [facility] ELP/IMMFIX,SERUM PANEL Specimen Type: SERUM No comment entered. Ordering Provider: SAMAN DEMPSEY Report Released Date/Time: May 02, 2023 02:16 PM Reporting Lab: [facility] [id number] Performing Lab: [facility] [address] PROTEIN,TOTAL 7.4 g/dL 6.0-8.3 M-SPIKE 1 0.21 g/dL .IDENTIFICATIO N 1 IgM kappa .ALBUMIN FRACTION 4.88 g/dL H 3.66-4.78 .ALPHA 1 FRACTION 0.23 g/dL 0.14-0.38 .ALPHA 2 FRACTION 0.64 g/dL 0.50-0.90 .BETA 1 FRACTION 0.36 g/dL 0.33-0.55 .BETA 2 FRACTION 0.25 g/dL 0.20-0.52 .GAMMA FRACTION 1.05 g/dL 0.58-1.72 .TOTAL PROTEIN 7.4 g/dL 6.0-8.3 .INTERPRETATIO N MONOCLONAL August 22, 2023 09:07 AM [facility] BCR-ABL1 MAJOR QT PCR Specimen Type: BLOOD No comment entered. Ordering Provider: SAMAN DEMPSEY Report Released Date/Time: May 02, 2023 02:16 PM Reporting Lab: [facility] [address] Performing Lab: [facility] [address] BCR-ABL1 MAJOR QT <0.0030 <0 BCR-ABL1 INTERP POSITIVE for BCR-ABL1 major fusion transcript August 22, 2023 09:07 AM [facility] COMPREHENSIVE METABOLIC PANEL+MG Specimen Type: PLASMA No comment entered. Ordering Provider: SAMAN DEMPSEY Report Released Date/Time: May 02, 2023 02:16 PM Reporting Lab: [facility] [phone] Performing Lab: [facility] [address] CREATININE 1.1 mg/dL 0.7-1.2 UREA NITROGEN 20 [...] 66 >60 August 22, 2023 09:07 AM [facility] CBC & DIFF Specimen Type: BLOOD Comment: Automated Differential Performed Ordering Provider: SAMAN DEMPSEY Report Released Date/Time: May 02, 2023 02:16 PM Reporting Lab: [facility] [address] Performing Lab: [facility] [address] WBC 4.80 10*3/uL 4.0-11.0 RBC 4.70 10*6/uL [...] Height Weight Body Mass Index Source August 29, 2023 11:50 AM 72 177/82 99 [facility] August 29, 2023 11:08 AM 173/80 [facility] August 29, 2023 11:06 AM 97.4 70 187/79 17 98 0 217.6 29 [facility] Social History: Smoking Status (Most current) [...] ity August 22, 2023 11:30 AM VA-TOBACCO QUIT 15 YRS OR MORE [facility] Tobacco Use History This section includes a history of the smoking, or tobacco-related health factors, that were collected on or before the date of the Encounter. The data comes from the [place] facility where the Encounter took place. Date/Time Smoking Status/Tobacco Use Comment F acility August 22, 2023 11:30 AM VA-TOBACCO QUIT 15 YRS OR MORE [facility] Oct 03, 2022 09:00 AM VA-TOBACCO FORMER USER [facility] Oct 03, 2022 09:00 AM VA-TOBACCO QUIT 15 YRS OR MORE [facility] Sep 27, 2021 02:30 PM VA-TOBACCO FORMER USER [facility] Sep 27, 2021 02:30 PM VA-TOBACCO QUIT 15 YRS OR MORE [facility] Dec 09, 2019 12:30 PM VA-TOBACCO FORMER USER [facility] Dec 09, 2019 12:30 PM VA-TOBACCO QUIT 15 YRS OR MORE [facility] Oct 06, 2018 02:12 PM VA-TOBACCO FORMER USER [facility] Oct 06, 2018 02:12 PM VA-TOBACCO QUIT 15 YRS OR MORE [facility] Sep 17, 2017 02:55 PM FORMER TOBACCO USER 7Y OR GREATE R [facility] August 29, 2016 01:07 PM FORMER TOBACCO USER 7Y OR GREATE R [facility] Nov 06, 2015 01:10 PM FORMER TOBACCO USER 7Y OR GREATE R [facility] August 19, 2014 09:31 AM FORMER TOBACCO USER 7Y OR GREATE R [facility] August 31, 2013 08:06 AM FORMER TOBACCO USER 7Y OR GREATE R [facility] Jul 02, 2006 10:49 AM FORMER TOBACCO USER 7Y OR GREATE R [facility] Radiology Reports: +/- 30 days of the [...] KNEE RIGHT 4 VIEWS : OSORIO POLLACK [id number] -[id number] M Exm Date: AUGUST 22, 2023@12:16 Req Phys: KYLEIGH VERDUGO Loc: [facility] 4E (Req'g Loc) Img Loc: MAIN X-RAY Service: [place] [address] (Case [id number] COMPLETE) KNEE RIGHT 4 VIEWS (RAD Detailed) CPT:97763 Reason for Study: bilateral pain Clinical History: Report Status: Verified Date Reported: AUGUST 22, 2023 Date Verified: AUGUST 22, 2023 [employer] E-Sig: Report: 4 views of each knee [...] faint chondrocalcinosis. READING PHYSICIAN: Cleve Valentin M.D. -[id number] 08/22/2023 14:13 EDT [facility] [phone] (For Medical Practitioner Use Only) Attention Patients / Veterans: If you have questions or concerns about these test results, please contact your ordering provider or primary care team. Primary Interpreting Staff: RADIOLOGY,OUTSIDE SERVICE, Staff Physician / RADIOLOGY,OUTSIDE SERVICE [facility] August 22, 2023 12:16 PM KNEE LEFT 4 VIEWS: OSORIO POLLACK [id number] -1940 M Exm Date: AUGUST 22, 2023@12:16 Req Phys: KYLEIGH VERDUGO Loc: [facility] 4E (Req'g Loc) Img Loc: MAIN X-RAY Service: [place] [address] (Case [id number] COMPLETE) KNEE LEFT 4 VIEWS (RAD Detailed) CPT:79058 Reason for Study: bilateral pain Clinical History: Report Status: Verified Date Reported: AUGUST 22, 2023 Date Verified: AUGUST 22, 2023 [employer] E-Sig: Report: 4 views of each knee [...] faint chondrocalcinosis. READING PHYSICIAN: Cleve Valentin M.D. -[id number] 08/22/2023 14:13 EDT [facility] [phone] (For Medical Practitioner Use Only) Attention Patients / Veterans: If you have questions or concerns about these test results, please contact your ordering provider or primary care team. Primary Interpreting Staff: RADIOLOGY,OUTSIDE SERVICE, Staff Physician / RADIOLOGY,OUTSIDE SERVICE [facility]
--- OUTSIDE RECORDS SUMMARY | 2023-10-08 05:36 | XMS_ITS | Encounter Summary ---
Author Name [facility] [employer] Organization [facility] Address [address] [place] [address] Care Team Providers Care Manager Behavioral Name Role Phone KYLEIGH VERDUGO Primary Care [...] Bejarano's Name Patient's Relationship to Policy Bejarano [facility] (WNR) MEDICARE (M) BLUE EDICA RE VALUE P Apr 14, 2009 [id number] OSORIO POLLACK PATIENT [facility] (WNR) MEDICARE ADVANTAGE [facility] ([facility]) Apr 14, 2009 DO NOT BILL [id number] [facility] OSORIO POLLACK PATIENT [facility] (WNR) MEDICARE ADVANTAGE [facility] (WN) Apr 14, 2016 [id number] [phone] OSORIO POLLACK PATIENT MEDICARE PART D (WN) MEDICARE (M) PART D Apr 14, 2021 PART D [id number] [facility] OSORIO POLLACK PATIENT Selected Encounter This section includes the information on record at AL for the Encounter. Date/Time Encounter Type Encounter Description Reason Provider Source August 29, 2023 11:00 AM OFFICE O/P EST MOD 30 MIN ONCOLOGY/TUMOR ICD-10-CM 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, BCR/ABL-positi ve, not achieve SHAYLEE Mccormick [place] Encounter Template Text not used by AL Assessments - Encounter Diagnoses This section includes the primary and secondary diagnoses documented for the Encounter. Date/Time Primary/Secondary Diagnosis Diagnosis Name Provider Source August 29, 2023 04:11 PM PRIMARY Chronic myeloid leuk, BCR/ABL-positiv e, not achieve SHAYLEE Mccormick [facility] Plan of Treatment: Future Appointments (+ 6 months) and Future Tests (+/- 45 days) The Plan of Treatment section includes future care activities for the patient from [facility] This section includes future appointments and future orders which are active, pending or scheduled. Future Appointments This section includes appointments that were scheduled to occur 6 months from the date of the Encounter, up to a maximum of 20 appointments. The data comes from all [place] treatment [facility]. Appointment Date/Time Appointment Type Appointme nt Facility Name September 01, 2023 11:00 AM AMBULATORY - MEDICINE [facility] September 09, 2023 12:30 PM AMBULATORY - SURGERY [facility] Sep 30, 2023 11:00 AM AMBULATORY - MEDICINE [facility] Dec 02, 2023 09:30 AM [facility] Dec 09, 2023 01:30 PM AMBULATORY - MEDICINE [facility] Feb 26, 2024 10:00 AM AMBULATORY - SURGERY [facility] Active, Pending, and Scheduled Orders This section includes a listing of several types of active, pending, and scheduled orders, including clinic medications orders, diagnostic test orders, procedure orders and consult orders; where the start date of the order is 45 days before the date of the Encounter or 45 days after the date of theEncounter. The data comes from all [facility]. Test Date/Time Test Type Test Details Facility Name Sep 30, 2023 11:54 AM Consult Order PODIATRY O UTPT Cons Wheel [employer] [facility] Lab Results: +/- 30 days of the encounter This section includes the Chemistry and Hematology Lab Results on record with AL for the patient. Radiology Reports and Pathology Reports are provided separately, in subsequent sections. Lab Results This section contains the Chemistry/Hematology Results that were resulted 30 days before or 30 daysafter the date of the Encounter. Date/Time Source Result Type Result - Unit Interpretation Reference Range Comment August 22, 2023 12:53 PM [facility] URINALYSIS Specimen Type: URINE No comment entered. Ordering Provider: KYLEIGH VERDUGO Report Released Date/Time: August 22, 2023 11:52 AM Reporting Lab: [facility] [id number] Performing Lab: [facility] [id number] URINE COLOR COLORLESS SPECIFIC GRAVITY 1.007 1.003-1.03 [...] NEGATIVE NEGATIVE August 22, 2023 09:07 AM [facility] KAPPA/LAMBDA LC FREE,RATIO Specimen Type: [...] therapy of these disorders. Test Performed by [employer], [employer] [facility], [address] [place] [address] El Sethi M.D., Ph.D., Director of Laboratories , [place] [id number] Ordering Provider: SHAYLEE MATT Report Released Date/Time: May 02, 2023 02:16 PM Reporting Lab: [facility] [id number] Performing Lab: [address] .KAPPA LT CHAIN,FREE 44.6 mg/L H 3.3-19.4 .LAMBDA LC,FREE 21.2 mg/L 5.7-26.3 .KAPPA/LAMBDA, FREE 2.10 H 0.26-1.65 August 22, 2023 09:07 AM [facility] ELP/IMMFIX,SERUM PANEL Specimen Type: SERUM No comment entered. Ordering Provider: SHAYLEE MATT Report Released Date/Time: May 02, 2023 02:16 PM Reporting Lab: [facility] [id number] Performing Lab: [facility] [id number] PROTEIN,TOTAL 7.4 g/dL 6.0-8.3 M-SPIKE 1 0.21 g/dL .IDENTIFICATIO N 1 IgM kappa .ALBUMIN FRACTION 4.88 g/dL H 3.66-4.78 .ALPHA 1 FRACTION 0.23 g/dL 0.14-0.38 .ALPHA 2 FRACTION 0.64 g/dL 0.50-0.90 .BETA 1 FRACTION 0.36 g/dL 0.33-0.55 .BETA 2 FRACTION 0.25 g/dL 0.20-0.52 .GAMMA FRACTION 1.05 g/dL 0.58-1.72 .TOTAL PROTEIN 7.4 g/dL 6.0-8.3 .INTERPRETATIO N MONOCLONAL August 22, 2023 09:07 AM [facility] BCR-ABL1 MAJOR QT PCR Specimen Type: BLOOD No comment entered. Ordering Provider: SHAYLEE MATT Report Released Date/Time: May 02, 2023 02:16 PM Reporting Lab: [facility] [id number] Performing Lab: [facility] [id number] BCR-ABL1 MAJOR QT <0.0030 <0 BCR-ABL1 INTERP POSITIVE for BCR-ABL1 major fusion transcript August 22, 2023 09:07 AM [facility] COMPREHENSIVE METABOLIC PANEL+MG Specimen Type: PLASMA No comment entered. Ordering Provider: SHAYLEE MATT Report Released Date/Time: May 02, 2023 02:16 PM Reporting Lab: [facility] [id number] Performing Lab: [facility] [id number] CREATININE 1.1 mg/dL 0.7-1.2 UREA NITROGEN 20 [...] 66 >60 August 22, 2023 09:07 AM [facility] CBC & DIFF Specimen Type: BLOOD Comment: Automated Differential Performed Ordering Provider: SHAYLEE MATT Report Released Date/Time: May 02, 2023 02:16 PM Reporting Lab: [facility] [id number] Performing Lab: [facility] [id number] WBC 4.80 10*3/uL 4.0-11.0 RBC 4.70 10*6/uL [...] 29, 2023 11:50 AM 72 177/82 99 [facility] August 29, 2023 11:08 AM 173/80 [facility] August 29, 2023 11:06 AM 97.4 70 187/79 17 98 0 217.6 29 [facility] Social History: Smoking Status (Most current) and Tobacco Use (All prior to encounter date) This section includes the most current, and the historical, smoking and tobacco- related health factors from the AL facility where the Encounter took place. Current Smoking Status This section includes the most current smoking, or tobacco-related health factor, from the AL facility where the Encounter took place. Date/Time Current Smoking Status Comment Facil ity August 22, 2023 11:30 AM VA-TOBACCO FORMER USER [facility] Tobacco Use History This section includes a history of the smoking, or tobacco-related health factors, that were collected on or before the date of the Encounter. The data comes from the AL facility where the Encounter took place. Date/Time Smoking Status/Tobacco Use Comment F acility August 22, 2023 11:30 AM VA-TOBACCO QUIT 15 YRS OR MORE [facility] Oct 03, 2022 09:00 AM VA-TOBACCO FORMER USER [facility] Oct 03, 2022 09:00 AM [...] 02:55 PM FORMER TOBACCO USER 7Y OR MONAEE R [facility] August 29, 2016 01:07 PM FORMER TOBACCO USER 7Y OR ARIAN R [facility] Nov 06, 2015 01:10 PM FORMER TOBACCO USER 7Y OR ARIAN R [facility] August 19, 2014 09:31 AM FORMER TOBACCO USER 7Y OR ARIAN R [facility] August 31, 2013 08:06 AM FORMER TOBACCO USER 7Y OR ARIAN R [facility] Jul 02, 2006 10:49 AM FORMER TOBACCO USER 7Y OR [facility] Radiology Reports: +/- 30 days [...] the Encounter. The data comes from all [facility] facilities. 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 READING PHYSICIAN: Cleve Valentin M.D. -[id number] 08/22/2023 14:13 EDT [facility] Nodeableradiology Program [phone] (For Medical Practitioner Use Only) Attention Patients / Veterans: If you have questions or concerns about these test results, please contact your ordering provider or primary care team. Primary Interpreting Staff: RADIOLOGY,OUTSIDE SERVICE, Staff Physician / RADIOLOGY,OUTSIDE SERVICE [facility] August 22, 2023 12:16 PM KNEE LEFT 4 VIEWS: OSORIO POLLACK [id number] -[id number] M Ex Date: AUGUST 22, 2023@12:16 Req Phys: KYLEIGH VERDUGO Loc: [facility]CT [facility] 4E (Req'g Loc) Img Loc: MAIN X-RAY Service: [place] [address] (Case [id number] COMPLETE) KNEE LEFT 4 VIEWS (RAD Detailed) CPT:98279 Reason for Study: bilateral pain Clinical History: Report Status: Verified Date Reported: AUGUST 22, 2023 Date Verified: AUGUST 22, 2023 [employer] E-Sig: Report: 4 views of each knee [...] faint chondrocalcinosis. READING PHYSICIAN: Cleve Valentin M.D. -[id number] 08/22/2023 14:13 EDT [facility] [phone] (For Medical Practitioner Use Only) Attention Patients / Veterans: If you have questions or concerns about these test results, please contact your ordering provider or primary care team. Primary Interpreting Staff: RADIOLOGY,OUTSIDE SERVICE, Staff Physician / RADIOLOGY,OUTSIDE SERVICE [facility] Encounter Notes: All associated encounter notes This section contains the clinical notes associated to the Encounter. Date/Time Encounter Note(s) Provider Source August 29, 2023 12:15 PM ADDENDUM: LOCAL TITLE: Addendum STANDARD TITLE: ADDENDUM DATE OF NOTE: AUGUST 29, 2023@12:15:10 ENTRY DATE: AUGUST 29, 2023@12:15:11 AUTHOR: CHATO TOM COSIGNER: URGENCY: STATUS: COMPLETED Behavioral Interventionist rechecked patients BP. 177/82 was instructed to monitor BP once daily for 2 weeks and record results. EDUCATION: PARTICIPANT(s): Patient Home Blood Pressure Monitoring Has home Blood Pressure monitor. Verified Technique. Advised to check home blood pressure daily for two weeks and follow up with Primary Care Provider. PACT RN TL and Provider alerted to note for follow up planning. Prosthetics consult ordered for home blood pressure monitor. Instructed on the technique of taking and recording blood pressure using home blood pressure machine. Participant(s) verbalized understanding of principles and technique for taking blood pressure at home. Participant(s) demonstrated proper use of home blood pressure machine. Step 1. Relax. Take your medications 1.5-2 hours prior to checking your BP. Wait at least 30 minutes after exercising, smoking or drinking caffeine. Sit comfortably at a table with the monitor near you. Rest quietly for 5 minutes before you begin and during your BP reading. Step 2. Wrap the Cuff. Place your arm on the table, palm up. Your arm should be at the level of your heart. Wrap the cuff around your upper arm, just above the elbow. It's best done on bare skin. Step 3. Inflate the Cuff. Push the button that starts the pump. The cuff will tighten, then loosen. The numbers will change. When they stop changing, your BP reading will appear. If you get a reading that is too high or low, rest 5 minutes. Then repeat the test. Step 4. Write Down the Results. Write down your BP numbers and heart rate. Remove the cuff from your arm. Turn off the machine. Remember to bring your log book to every clinic appointment for your provider or nurse to review. Participant(s) verbalized understanding of Goal BP:>140/90, and how often to take blood pressure at home: 7 times per week. Participant (s) provided with clinic phone number for any questions. /anoop/ CHATO TOM LPN LICENSE PRACTICAL NURSE Signed: 08/29/2023 12:22 Receipt Acknowledged By: 08/29/2023 13:00 /es/ MARTÍNEZ CANO PA-C PHYSICIAN CHIP MACHINE OPERATOR for KYLEIGH VERDUGO 08/29/2023 12:45 /es/ DAVID RODRIGUEZ, RN REGISTERED NURSE for RAJAT Cinthya ARAGON --- Original Document --- 08/29/23 MEDICINE CLINIC NURSING NOTE: TYPE OF VISIT: Appointment Check In Type of appointment: In-person appointment REASON FOR VISIT: Scheduled visit ALLERGIES: FLUCONAZOLE (August 29, 2016) LISINOPRIL (Nov 30, 2018) VITAL SIGNS: Blood Pressure: 187/79 (08/29/2023 11:06) 173/80 (11:10) Patient denies chest pain, sob or headache today. Pulse: 70 (08/29/2023 11:06) Respiration: 17 (08/29/2023 11:06) Temperature: 97.4 F [36.3 C] (08/29/2023 11:06) Weight: 217.6 lb [98.70 kg] (08/29/2023 11:06) Height: 73 in [185.4 cm] (08/22/2023 11:34) BMI: 28.8 O2 Sat: 98% (08/29/2023 11:06) Pain: 0 (08/29/2023 11:06) PAIN SCREEN: Patient is not having significant pain that they wish to discuss with their provider today. MEDICATION Over the Counter/Herbal Medications: The patient denies taking any outside medications or herbals. /anoop/ ISABEL VILLALOBOS LPN Signed: 08/29/2023 11:09 CHATO TOM [facility] August 29, 2023 11:29 AM HEMATOLOGY AND ONCOLOGY ATTENDING NOTE: LOCAL TITLE: HEME/ONC CLINIC NOTE STANDARD TITLE: HEMATOLOGY AND ONCOLOGY ATTENDING NOTE DATE OF NOTE: AUGUST 29, 2023@11:29 ENTRY DATE: AUGUST 29, 2023@11:29:14 AUTHOR: SHAYLEE MATT COSIGNER: URGENCY: STATUS: COMPLETED Date of service:08/29/2023 30minutes understands limitations of phone/VVC appointments and consents to proceed. Reason for visit (CC): CML, chronic phase Treatment/Plan: Dasatinib HPI: Pt is here today with his . He is feeling great. really has no concerns on our visit. he keeps quite busy at home. continues to tolerate the desatinib well. appetite is good. denies n/V. no clotting concerns. no new bone pains. no new issues on todays visit. 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 Started with imatinib 09/2013 at varying doses (neutropenia). He was switched to Dasatinib while in [place] on 06/08/15 due to rising bcr/abl. [place] around [place]. Since started dasatinib, his BCR/ABL steadily declined, [...] on desatinib 09/06/22- bcr/abl undetectable- to present 08/2023- minimally positive <0.003 PAST MEDICAL HISTORY: Active problems - Computerized Problem List is the source for the followin. History of immune thrombocytopenia (SNOMED CT 526871995) 2. Type 2 diabetes mellitus 3. Skin cancer (SNOMED CT 834089028) - H/O SCCA in 2010. 4. Hearing loss (SNOMED CT 42558163) 5. Osteoarthritis - S/P left knee arthroscopy in 1994. - S/P right shoulder decompression in 2002. 6. Trigger finger (acquired) 7. Benign prostatic hypertrophy with outflow obstruction 8. Chronic myeloid leukemia (SNOMED CT 81529607) 9. Chronic low back pain 10. Hyperlipidemia 11. Solitary nodule of lung 12. Insomnia 13. ECG: ventricular ectopics 14. Proteinuria 15. Inguinal hernia 16. Monoclonal paraproteinemia 17. Pain of bilateral knee regions ALLERGIES: FLUCONAZOLE (August 29, 2016) LISINOPRIL (Nov 30, 2018) Vital signs: weight:217.6 lb [98.70 kg] (08/29/2023 11:06) BP: 173/80 (08/29/2023 11:08) P:70 (08/29/2023 11:06) RR:17 (08/29/2023 11:06) Temp:97.4 F [36.3 C] (08/29/2023 11:06) BSA: 2.26 O2 sat: 98% (08/29/2023 11:06) PHYSICAL EXAM: General: well appearing, in no acute distress LAD: no cervical or clavicular lymphadenopathy Resp: CTA bilat, no rales or wheezes, Cardio: RRR no murmurs, Neuro: AO X3 RADIOLOGY: radiology obtained by heme/onc was reviewed with the patient. MEDS: All pertinent heme/onc meds reviewed and updated with the patient LABS: The following labs were obtained by [facility] and the results were reviewed with the patient SLT - Lab Tests Selected Collection DT Specimen Test Name Result Units Ref Range 08/22/2023 09:07 BLOOD !! WBC 4.80 K/cmm 4.0 - 11.0 08/22/2023 09:07 BLOOD !! HGB 14.7 g/dL 13.5 - 17.9 08/22/2023 09:07 BLOOD !! HCT 42.8 % 41 - 54 08/22/2023 09:07 BLOOD !! MCV 91.1 fL 80 - 100 08/22/2023 09:07 BLOOD !! PLT 167 K/cmm 150 - 400 08/22/2023 09:07 BLOOD !! ABS LYMPH 1.65 K/cmm 1.0 - 4.0 08/22/2023 09:07 BLOOD !! ABS NEUT 2.48 K/cmm 2.0 - 7.7 CMP (calcium, creatinine, [...] was made to restart dasatinib in 11/2019. BCR fluctuates with undetectable and minimally positive. Other labs look good. - Continue Dasatinib 50 mg/day. 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 Denies further questions. 30minutes spent in direct patient care, reviewing chart, reviewing labs and imaging and documentation. /anoop/ Shaylee Matt PA-C Physician Music Promoter Signed: 08/29/2023 16:11 SHAYLEE MATT [facility] August 29, 2023 11:07 AM INTERNAL MEDICINE OUTPATIENT NOTE: LOCAL TITLE: MEDICINE CLINIC NURSING NOTE STANDARD TITLE: INTERNAL MEDICINE OUTPATIENT NOTE DATE OF NOTE: AUGUST 29, 2023@11:07 ENTRY DATE: AUGUST 29, 2023@11:07:17 AUTHOR: ISABEL VILLALOBOS EXP COSIGNER: URGENCY: STATUS: COMPLETED MEDICINE CLINIC NURSING NOTE Has ADDENDA TYPE OF VISIT: Appointment Check In Type of appointment: In-person appointment REASON FOR VISIT: Scheduled visit ALLERGIES: FLUCONAZOLE (August 29, 2016) LISINOPRIL (Nov 30, 2018) VITAL SIGNS: Blood Pressure: 187/79 (08/29/2023 11:06) 173/80 (11:10) Patient denies chest pain, sob or headache today. Pulse: 70 (08/29/2023 11:06) Respiration: 17 (08/29/2023 11:06) Temperature: 97.4 F [36.3 C] (08/29/2023 11:06) Weight: 217.6 lb [98.70 kg] (08/29/2023 11:06) Height: 73 in [185.4 cm] (08/22/2023 11:34) BMI: 28.8 O2 Sat: 98% (08/29/2023 11:06) Pain: 0 (08/29/2023 11:06) PAIN SCREEN: Patient is not having significant pain that they wish to discuss with their provider today. MEDICATION Over the Counter/Herbal Medications: The patient denies taking any outside medications or herbals. /anoop/ ISABEL VILLALOBOS LPN Signed: 08/29/2023 11:09 08/29/2023 ADDENDUM STATUS: COMPLETED Behavioral Interventionist rechecked patients BP. 177/82 was instructed to monitor BP once daily for 2 weeks and record results. EDUCATION: PARTICIPANT(s): Patient Home Blood Pressure Monitoring Has home Blood Pressure monitor. Verified Technique. Advised to check home blood pressure daily for two weeks and follow up with Primary Care Provider. PACT RN TL and Provider alerted to note for follow up planning. Prosthetics consult ordered for home blood pressure monitor. Instructed on the technique of taking and recording blood pressure using home blood pressure machine. Participant(s) verbalized understanding of principles and technique for taking blood pressure at home. Participant(s) demonstrated proper use of home blood pressure machine. Step 1. Relax. Take your medications 1.5-2 hours prior to checking your BP. Wait at least 30 minutes after exercising, smoking or drinking caffeine. Sit comfortably at a table with the monitor near you. Rest quietly for 5 minutes before you begin and during your BP reading. Step 2. Wrap the Cuff. Place your arm on the table, palm up. Your arm should be at the level of your heart. Wrap the cuff around your upper arm, just above the elbow. It's best done on bare skin. Step 3. Inflate the Cuff. Push the button that starts the pump. The cuff will tighten, then loosen. The numbers will change. When they stop changing, your BP reading will appear. If you get a reading that is too high or low, rest 5 minutes. Then repeat the test. Step 4. Write Down the Results. Write down your BP numbers and heart rate. Remove the cuff from your arm. Turn off the machine. Remember to bring your log book to every clinic appointment for your provider or nurse to review. Participant(s) verbalized understanding of Goal BP:>140/90, and how often to take blood pressure at home: 7 times per week. Participant (s) provided with clinic phone number for any questions. /anoop/ CHATO TOM LPN LICENSE PRACTICAL NURSE Signed: 08/29/2023 12:22 Receipt Acknowledged By: * AWAITING SIGNATURE * KYLEIGH VERDUGO * AWAITING SIGNATURE * RAJAT ARAGON ALEXANDER S L [facility]
--- OUTSIDE RECORDS SUMMARY | 2023-10-08 05:36 | XMS_ITS | Encounter Summary ---
Author Name [facility] Organization [facility] Address [address] [place] [address] Care Team Providers Care Nurse Auditor Name Role Phone KYLEIGH VERDUGO Primary Care [...] Bejarano's Name Patient's Relationship to Policy Bejarano [facility] (WNR) MEDICARE (M) BLUEM EDICA RE VALUE P Apr 14, 2009 [id number] [phone] OSORIO POLLACK PATIENT [facility] (WNR) MEDICARE ADVANTAGE [facility] (WN) Apr 14, 2009 DO NOT BILL [id number] CC OSORIO POLLACK PATIENT [facility] (WNR) MEDICARE ADVANTAGE [facility] (WNR) Apr 14, 2016 [id number] [phone] OSORIO POLLACK PATIENT MEDICARE PART D (WN) MEDICARE (M) PART D Apr 14, 2021 PART D [id number] OSORIO POLLACK PATIENT Selected Encounter This section includes the information on record at [place] for the Encounter. Date/Time Encounter Type Encounter Description Reason Provider Source August 29, 2023 12:45 PM OFF/OP EST MAY X REQ PHY/QHP PRIMARY CARE/MEDICINE ICD-10-CM Z71.9 Counseling, unspecified DAVID RODRIGUEZ IHE Encounter Template Text not used by [place] Assessments - Encounter Diagnoses This section includes the primary and secondary diagnoses documented for the Encounter. Date/Time Primary/Secondary Diagnosis Diagnosis Name Provider Source August 29, 2023 12:47 PM PRIMARY Counseling, unspecified DAVID RODRIGUEZ [facility] Plan of Treatment: Future Appointments (+ 6 months) and Future Tests (+/- 45 days) The Plan of Treatment section includes future care activities for the [facility] This section includes future appointments and future orders which are active, pending or scheduled. Future Appointments This section includes appointments that were scheduled to occur 6 months from the date of the Encounter, up to a maximum of 20 appointments. The data comes from all [place] treatment [facility]. Appointment Date/Time Appointment Type Appointme nt Facility Name September 01, 2023 11:00 AM AMBULATORY - MEDICINE [facility] September 09, 2023 12:30 PM AMBULATORY - SURGERY [facility] Sep 30, 2023 11:00 AM AMBULATORY - MEDICINE [facility] Dec 02, 2023 09:30 AM [facility] Dec 09, 2023 01:30 PM AMBULATORY - MEDICINE [facility] Feb 26, 2024 10:00 AM AMBULATORY - SURGERY [facility] Active, Pending, and Scheduled Orders This section includes a listing of several types of active, pending, and scheduled orders, including clinic medications orders, diagnostic test orders, procedure orders and consult orders; where the start date of the order is 45 days before the date of the Encounter or 45 days after the date of theEncounter. The data comes from all [facility]. 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 Ordering Provider: KYLEIGH VERDUGO Report Released Date/Time: August 22, 2023 11:52 AM Reporting Lab: [facility] [id number] Performing Lab: [facility] [address] URINE COLOR COLORLESS SPECIFIC GRAVITY 1.007 1.003-1.03 [...] NEGATIVE NEGATIVE August 22, 2023 09:07 AM [facility] KAPPA/LAMBDA LC FREE,RATIO Specimen Type: SERUM [...] therapy of these disorders. Test Performed by [facility], [employer] [facility], [address] [place] [address] El Sethi M.D., Ph.D., Director of Laboratories , [facility] [id number] Ordering Provider: SAMAN DEMPSEY Report Released Date/Time: May 02, 2023 02:16 PM Reporting Lab: [facility] [address] Performing Lab: [address] .KAPPA LT CHAIN,FREE 44.6 mg/L H 3.3-19.4 .LAMBDA LC,FREE 21.2 mg/L 5.7-26.3 .KAPPA/LAMBDA, FREE 2.10 H 0.26-1.65 August 22, 2023 09:07 AM [facility] ELP/IMMFIX,SERUM PANEL Specimen Type: SERUM No comment entered. Ordering Provider: SAMAN DEMPSEY Report Released Date/Time: May 02, 2023 02:16 PM Reporting Lab: [facility] [phone] Performing Lab: [facility] [address] PROTEIN,TOTAL 7.4 g/dL 6.0-8.3 M-SPIKE 1 0.21 g/dL .IDENTIFICATIO N 1 IgM kappa .ALBUMIN FRACTION 4.88 g/dL H 3.66-4.78 .ALPHA 1 FRACTION 0.23 g/dL 0.14-0.38 .ALPHA 2 FRACTION 0.64 g/dL 0.50-0.90 .BETA 1 FRACTION 0.36 g/dL 0.33-0.55 .BETA 2 FRACTION 0.25 g/dL 0.20-0.52 .GAMMA FRACTION 1.05 g/dL 0.58-1.72 .TOTAL PROTEIN 7.4 g/dL 6.0-8.3 .INTERPRETATIO N MONOCLONAL August 22, 2023 09:07 AM [facility] BCR-ABL1 MAJOR QT PCR Specimen Type: BLOOD No comment entered. Ordering Provider: SAMAN DEMPSEY Report Released Date/Time: May 02, 2023 02:16 PM Reporting Lab: [facility] [phone] Performing Lab: [facility] [address] BCR-ABL1 MAJOR QT <0.0030 <0 BCR-ABL1 INTERP POSITIVE for BCR-ABL1 major fusion transcript August 22, 2023 09:07 AM [facility] COMPREHENSIVE METABOLIC PANEL+MG Specimen Type: PLASMA No comment entered. Ordering Provider: SAMAN DEMPSEY Report Released Date/Time: May 02, 2023 02:16 PM Reporting Lab: [facility] [address] Performing Lab: [facility] [address] CREATININE 1.1 mg/dL 0.7-1.2 UREA NITROGEN 20 [...] 66 >60 August 22, 2023 09:07 AM [facility] CBC & DIFF Specimen Type: BLOOD Comment: Automated Differential Performed Ordering Provider: SAMAN DEMPSEY Report Released Date/Time: May 02, 2023 02:16 PM Reporting Lab: [facility] [address] Performing Lab: [facility] [address] WBC 4.80 10*3/uL 4.0-11.0 RBC 4.70 10*6/uL [...] 29, 2023 11:50 AM 72 177/82 99 [facility] August 29, 2023 11:08 AM 173/80 [facility] August 29, 2023 11:06 AM 97.4 70 187/79 17 98 0 217.6 29 [facility] Social History: Smoking Status (Most current) and Tobacco Use (All prior to encounter date) This section includes the most current, and the historical, smoking and tobacco- related health factors from the [place] facility where the Encounter took place. Current Smoking Status This section includes the most current smoking, or tobacco-related health factor, from the [place] facility where the Encounter took place. Date/Time Current Smoking Status Comment Facil ity August 22, 2023 11:30 AM VA-TOBACCO FORMER USER [facility] Tobacco Use History This section includes a history of the smoking, or tobacco-related health factors, that were collected on or before the date of the Encounter. The data comes from the [place] facility where the Encounter took place. Date/Time Smoking Status/Tobacco Use Comment F acility August 22, 2023 11:30 AM VA-TOBACCO QUIT 15 YRS OR MORE [facility] Oct 03, 2022 09:00 AM VA-TOBACCO FORMER USER [facility] Oct 03, 2022 09:00 AM VA-TOBACCO QUIT 15 YRS OR MORE [facility] Sep 27, 2021 02:30 PM VA-TOBACCO FORMER USER [facility] Sep 27, 2021 02:30 PM VA-TOBACCO QUIT 15 YRS OR MORE [facility] Dec 09, 2019 12:30 PM VA-TOBACCO FORMER USER [facility] Dec 09, 2019 12:30 PM VA-TOBACCO QUIT 15 YRS OR MORE [facility] Oct 06, 2018 02:12 PM VA-TOBACCO FORMER USER [facility] Oct 06, 2018 02:12 PM VA-TOBACCO QUIT 15 YRS OR MORE [facility] Sep 17, 2017 02:55 PM FORMER TOBACCO USER 7Y OR GREATE R [facility] August 29, 2016 01:07 PM FORMER TOBACCO USER 7Y OR GREATE R [facility] Nov 06, 2015 01:10 PM FORMER TOBACCO USER 7Y OR [place] R [facility] August 19, 2014 09:31 AM FORMER TOBACCO USER 7Y OR [place] R [facility] August 31, 2013 08:06 AM FORMER TOBACCO USER 7Y OR [place] [facility] Jul 02, 2006 10:49 AM FORMER TOBACCO USER 7Y OR [place] R [facility] Radiology Reports: +/- 30 days of [...] the Encounter. The data comes from all [facility] facilities. Date/Time Radiology Report Provider Source August 22, 2023 12:16 PM KNEE RIGHT 4 VIEWS : OSORIO POLLACK [id number] -[id number] M Exm Date: AUGUST 22, 2023@12:16 Req Phys: KYLEIGH VERDUGO Loc: [facility] PACT DALE 4E (Req'g Loc) Img Loc: MAIN X-RAY Service: [place] [address] (Case [id number] COMPLETE) KNEE RIGHT 4 VIEWS (RAD Detailed) CPT:03604 Reason for Study: bilateral pain Clinical History: Report Status: Verified Date Reported: AUGUST 22, 2023 Date Verified: AUGUST 22, 2023 Upper Doubler E-Sig: Report: 4 views of each knee [...] faint chondrocalcinosis. READING PHYSICIAN: Cleve Valentin M.D. -[phone] 08/22/2023 14:13 EDT [facility] [phone] (For Medical Practitioner Use Only) Attention Patients / Veterans: If you have questions or concerns about these test results, please contact your ordering provider or primary care team. Primary Interpreting Staff: RADIOLOGY,OUTSIDE SERVICE, Staff Physician / RADIOLOGY,OUTSIDE SERVICE [facility] August 22, 2023 12:16 PM KNEE LEFT 4 VIEWS: OSORIO POLLACK [id number] -[id number] M Ex Date: AUGUST 22, 2023@12:16 Req Phys: KYLEIGH VERDUGO Loc: [facility] PACT DALE 4E (Req'g Loc) Img Loc: MAIN X-RAY Service: [place] [address] (Case [id number] COMPLETE) KNEE LEFT 4 VIEWS (RAD Detailed) CPT:33934 Reason for Study: bilateral pain Clinical History: Report Status: Verified Date Reported: AUGUST 22, 2023 Date Verified: AUGUST 22, 2023 Upper Doubler E-Sig: Report: 4 views of each knee [...] faint chondrocalcinosis. READING PHYSICIAN: Cleve Valentin M.D. -[phone] 08/22/2023 14:13 EDT [facility] [phone] (For Medical Practitioner Use Only) Attention Patients / Veterans: If you have questions or concerns about these test results, please contact your ordering provider or primary care team. Primary Interpreting Staff: RADIOLOGY,OUTSIDE SERVICE, Staff Physician / RADIOLOGY,OUTSIDE SERVICE [facility] Encounter Notes: All associated encounter notes This section contains the clinical notes associated to the Encounter. Date/Time Encounter Note(s) Provider Source August 29, 2023 12:45 PM NURSING OUTPATIENT NOTE: LOCAL TITLE: MEDICINE CLINIC NURSING RN NOTE STANDARD TITLE: NURSING OUTPATIENT NOTE DATE OF NOTE: AUGUST 29, 2023@12:45 ENTRY DATE: AUGUST 29, 2023@12:46:03 AUTHOR: DAVID RODRIGUEZ EXP COSIGNER: URGENCY: STATUS: COMPLETED MEDICINE CLINIC NURSING RN NOTE Has ADDENDA TYPE OF VISIT: Walk-in REASON FOR VISIT: Pt last seen 08/22/23 per notes: 2) LUTS: Reportedly never evaluated before. - U/A ordered. - PVR= 397 ml - Pt informed and having a indweling bladder catheter was adviced. Pt adamantly declined. Voiced understanding of risks including acute urinary retention, kidney damage, infection. - Trial with Tamsulosin. - Urology consult. Pt reports tamsulosin is working states that he is now urinating less frequently previously 12x day and now 3-4 x day. Denies burning denies incontinence. PVR: 90ml Urology consult- aware they should be reaching out to schedule. noted BP elevated at oncology appt today Blood Pressure: 187/79 (08/29/2023 11:06) 173/80 (11:10) Pt provided BP cuff from oncology clinic, pt verbalized understanding to take am/pm BP and to keep log with numbers. adding PACT RN for f/u. ALLERGIES: FACILITY ALLERGY/ADR -------- [facility] FLUCON[facility]OLE [facility] LISINOPRIL [facility] FLUCONAZOLE [facility] LISINOPRIL PLAN: /es/ DAVID RODRIGUEZ RN REGISTERED NURSE Signed: 08/29/2023 12:47 Receipt Acknowledged By: 08/29/2023 13:05 /anoop/ MARTÍNEZ CANO PA-C PHYSICIAN HAND CHAIN MAKER for KYLEIGH VERDUGO 08/29/2023 13:59 /es/ DAVID RODRIGUEZ RN REGISTERED NURSE for RAJAT ARAGON 08/29/2023 ADDENDUM STATUS: COMPLETED RTC phone call placed with PCP to discuss elevated BP /anoop/ MARTÍNEZ CANO PA-C PHYSICIAN HAND CHAIN MAKER Signed: 08/29/2023 13:04 DAVID RODRIGUEZ [facility]
--- OUTSIDE RECORDS SUMMARY | 2023-10-08 05:37 | XMS_ITS | Encounter Summary ---
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 Name Role Phone KYLEIGH VERDUGO Primary [...] Bejarano's Name Patient's Relationship to Policy Bejarano [facility] (WNR) MEDICARE (M) [facility] Apr 14, 2009 [id number] OSORIO POLLACK PATIENT [facility] (WNR) MEDICARE ADVANTAGE [facility] (WNR) Apr 14, 2009 DO NOT BILL [id number] [facility] [phone] OSORIO POLLACK PATIENT [facility] (WNR) MEDICARE ADVANTAGE [facility] (WNR) Apr 14, 2016 [id number] [phone] OSORIO POLLACK PATIENT MEDICARE PART D (WNR) MEDICARE (M) PART D Apr 14, 2021 PART D [id number] OSORIO POLLACK PATIENT Selected Encounter This section includes the information on record at [place] for the Encounter. Date/Time Encounter Type Encounter Description Reason Pro vider Source September 03, 2023 09:48 AM Outpatient Encounter ONCOLOGY/TUMOR IHE Encounter Template Text not used by SD Plan of Treatment: Future Appointments (+ 6 months) and Future Tests (+/- 45 days) The Plan of Treatment section includes future care activities for the patient [facility] This section includes future appointments and future orders which are active, pending or scheduled. Future Appointments This section includes appointments that were scheduled to occur 6 months from the date of the Encounter, up to a maximum of 20 appointments. The data comes from all [place] treatment facilities. Appointment Date/Time Appointment Type Appointme nt Facility Name September 09, 2023 12:30 PM AMBULATORY - SURGERY [facility] Sep 30, 2023 11:00 AM AMBULATORY - MEDICINE [facility] Dec 02, 2023 09:30 AM AMBULATORY - NONE [facility] Dec 09, 2023 01:30 PM AMBULATORY - MEDICINE [facility] Feb 26, 2024 10:00 AM AMBULATORY - SURGERY [facility] Active, Pending, and Scheduled Orders This section includes a listing of several types of active, pending, and scheduled orders, including clinic medications orders, diagnostic test orders, procedure orders and consult orders; where the start date of the order is 45 days before the date of the Encounter or 45 days after the date of theEncounter. The data comes from all [facility]. Test Date/Time Test Type Test Details Facility Name Sep 30, 2023 11:54 AM Consult Order PODIATRY O UTPT Cons [employer] [facility] Lab Results: +/- 30 days of the encounter This section includes the Chemistry and Hematology Lab Results on record with SD for the patient. Radiology Reports and Pathology Reports are provided separately, in subsequent sections. Lab Results This section contains the Chemistry/Hematology Results that were resulted 30 days before or 30 daysafter the date of the Encounter. Date/Time Source Result Type Result - Unit Interpretation Reference Range Comment Sep 30, 2023 04:24 PM [facility] ALBUMIN/CREATININE RATIO URINE Specimen Type: URINE No comment entered. Ordering Provider: KYLEIGH VERDUGO Report Released Date/Time: Sep 30, 2023 07:01 AM Reporting Lab: [facility] [id number] Performing Lab: [facility] [phone] CREATININE,UR RANDOM 65.0 mg/dL 58.0-161.0 ALB/CREAT RATIO,UR 21.5 mg/g{creat} <29.9 ALBUMIN,UR 14.0 mg/L <29.9 August 22, 2023 12:53 PM [facility] URINALYSIS Specimen Type: URINE No comment entered. Ordering Provider: KYLEIGH VERDUGO Report Released Date/Time: August 22, 2023 11:52 AM Reporting Lab: [facility] [id number] Performing Lab: [facility] [phone] URINE COLOR COLORLESS SPECIFIC GRAVITY 1.007 1.003-1.03 [...] NEGATIVE NEGATIVE August 22, 2023 09:07 AM [facility] KAPPA/LAMBDA LC FREE,RATIO Specimen Type: [...] therapy of these disorders. Test Performed by [facility] Jordyn, [employer] [facility], [address] [place] [address] El Sethi M.D., Ph.D., Director of Laboratories , [place] [id number] Ordering Provider: SAMAN DEMPSEY Report Released Date/Time: May 02, 2023 02:16 PM Reporting Lab: [facility] [id number] Performing Lab: [address] [place] .KAPPA LT CHAIN,FREE 44.6 mg/L H 3.3-19.4 .LAMBDA LC,FREE 21.2 mg/L 5.7-26.3 .KAPPA/LAMBDA, FREE 2.10 H 0.26-1.65 August 22, 2023 09:07 AM [facility] ELP/IMMFIX,SERUM PANEL Specimen Type: SERUM No comment entered. Ordering Provider: SAMAN DEMPSEY Report Released Date/Time: May 02, 2023 02:16 PM Reporting Lab: [facility] [phone] Performing Lab: [facility] [phone] PROTEIN,TOTAL 7.4 g/dL 6.0-8.3 M-SPIKE 1 0.21 g/dL .IDENTIFICATIO N 1 IgM kappa .ALBUMIN FRACTION 4.88 g/dL H 3.66-4.78 .ALPHA 1 FRACTION 0.23 g/dL 0.14-0.38 .ALPHA 2 FRACTION 0.64 g/dL 0.50-0.90 .BETA 1 FRACTION 0.36 g/dL 0.33-0.55 .BETA 2 FRACTION 0.25 g/dL 0.20-0.52 .GAMMA FRACTION 1.05 g/dL 0.58-1.72 .TOTAL PROTEIN 7.4 g/dL 6.0-8.3 .INTERPRETATIO N MONOCLONAL August 22, 2023 09:07 AM [facility] BCR-ABL1 MAJOR QT PCR Specimen Type: BLOOD No comment entered. Ordering Provider: SAMAN DEMPSEY Report Released Date/Time: May 02, 2023 02:16 PM Reporting Lab: [facility] [phone] Performing Lab: [facility] [phone] BCR-ABL1 MAJOR QT <0.0030 <0 BCR-ABL1 INTERP POSITIVE for BCR-ABL1 major fusion transcript August 22, 2023 09:07 AM [facility] COMPREHENSIVE METABOLIC PANEL+MG Specimen Type: PLASMA No comment entered. Ordering Provider: SAMAN DEMPSEY Report Released Date/Time: May 02, 2023 02:16 PM Reporting Lab: [facility] [phone] Performing Lab: [facility] [phone] CREATININE 1.1 mg/dL 0.7-1.2 UREA NITROGEN 20 [...] 66 >60 August 22, 2023 09:07 AM [facility] CBC & DIFF Specimen Type: BLOOD Comment: Automated Differential Performed Ordering Provider: SAMAN DEMPSEY Report Released Date/Time: May 02, 2023 02:16 PM Reporting Lab: [facility] [phone] Performing Lab: [facility] [phone] WBC 4.80 10*3/uL 4.0-11.0 RBC 4.70 10*6/uL [...] 0.4 ABS IMMATURE GRAN 0.02 10*3/uL 0-0.1 Social History: Smoking Status (Most current) and Tobacco Use (All prior to encounter date) This section includes the most current, and the historical, smoking and tobacco- related health factors from the SD facility where the Encounter took place. Current Smoking Status This section includes the most current smoking, or tobacco-related health factor, from the SD facility where the Encounter took place. Date/Time Current Smoking Status Comment Facil ity August 22, 2023 11:30 AM VA-TOBACCO FORMER USER [facility] Tobacco Use History This section includes a history of the smoking, or tobacco-related health factors, that were collected on or before the date of the Encounter. The data comes from the SD facility where the Encounter took place. Date/Time Smoking Status/Tobacco Use Comment F acility August 22, 2023 11:30 AM VA-TOBACCO QUIT 15 YRS OR MORE [facility] Oct 03, 2022 09:00 AM VA-TOBACCO FORMER USER [facility] Oct 03, 2022 09:00 AM VA-TOBACCO QUIT 15 YRS OR MORE [facility] Sep 27, 2021 02:30 PM VA-TOBACCO FORMER USER [facility] Sep 27, 2021 02:30 PM VA-TOBACCO QUIT 15 YRS OR MORE [facility] Dec 09, 2019 12:30 PM VA-TOBACCO FORMER USER [facility] Dec 09, 2019 12:30 PM VA-TOBACCO QUIT 15 YRS OR MORE [facility] Oct 06, 2018 02:12 PM VA-TOBACCO FORMER USER [facility] Oct 06, 2018 02:12 PM VA-TOBACCO QUIT 15 YRS OR MORE [facility] Sep 17, 2017 02:55 PM FORMER TOBACCO USER 7Y OR GREATE R [facility] August 29, 2016 01:07 PM FORMER TOBACCO USER 7Y OR GREATE R [facility] Nov 06, 2015 01:10 PM FORMER TOBACCO USER 7Y OR GREATE R [facility] August 19, 2014 09:31 AM FORMER TOBACCO USER 7Y OR GREATE R [facility] August 31, 2013 08:06 AM FORMER TOBACCO USER 7Y OR GREATE R [facility] Jul 02, 2006 10:49 AM FORMER TOBACCO USER 7Y OR GREATE R [facility] Radiology Reports: +/- 30 days [...] the Encounter. The data comes from all [place] treatment facilities. Date/Time Radiology Report Provider Source August 22, 2023 12:16 PM KNEE RIGHT 4 VIEWS : OSORIO POLLACK [id number] -[id number] M Exm Date: AUGUST 22, 2023@12:16 Req Phys: KYLEIGH VERDUGO Loc: [facility] 4E (Req'g Loc) Img Loc: MAIN X-RAY Service: [place] [address] (Case [id number] COMPLETE) KNEE RIGHT 4 VIEWS (RAD Detailed) CPT:19467 Reason for Study: bilateral pain Clinical History: Report Status: Verified Date Reported: AUGUST 22, 2023 Date Verified: AUGUST 22, 2023 Dietary Supervisor E-Sig: Report: 4 views of each knee [...] faint chondrocalcinosis. READING PHYSICIAN: Cleve Valentin M.D. -[phone] 08/22/2023 14:13 EDT [facility] Locate Special Dietradiology Program [phone] (For Medical Practitioner Use Only) Attention Patients / Veterans: If you have questions or concerns about these test results, please contact your ordering provider or primary care team. Primary Interpreting Staff: RADIOLOGY,OUTSIDE SERVICE, Staff Physician / RADIOLOGY,OUTSIDE SERVICE [facility] August 22, 2023 12:16 PM KNEE LEFT 4 VIEWS: OSORIO POLLACK [id number] -[id number] M Exm Date: AUGUST 22, 2023@12:16 Req Phys: KYLEIGH VERDUGO Loc: [facility] 4E (Req'g Loc) Img Loc: MAIN X-RAY Service: [place] [address] (Case [id number] COMPLETE) KNEE LEFT 4 VIEWS (RAD Detailed) CPT:92565 Reason for Study: bilateral pain Clinical History: Report Status: Verified Date Reported: AUGUST 22, 2023 Date Verified: AUGUST 22, 2023 Dietary Supervisor E-Sig: Report: 4 views of each knee [...] faint chondrocalcinosis. READING PHYSICIAN: Cleve Valentin M.D. -[phone] 08/22/2023 14:13 EDT [facility] National Teleradiology Program [phone] (For Medical Practitioner Use Only) Attention Patients / Veterans: If you have questions or concerns about these test results, please contact your ordering provider or primary care team. Primary Interpreting Staff: RADIOLOGY,OUTSIDE SERVICE, Staff Physician / RADIOLOGY,OUTSIDE SERVICE [facility] Encounter Notes: All associated encounter notes This section contains the clinical notes associated to the Encounter. Date/Time Encounter Note(s) Provider Source September 03, 2023 09:48 AM HEMATOLOGY AND ONC OLOGY TREATMENT PLAN NOTE: LOCAL TITLE: CANCER TX PLAN STANDARD TITLE: HEMATOLOGY AND ONCOLOGY TREATMENT PLAN NOTE DATE OF NOTE: SEPTEMBER 03, 2023@09:48 ENTRY DATE: SEPTEMBER 03, 2023@09:48:52 AUTHOR: AILEEN ALVAREZ COSIGNER: URGENCY: STATUS: COMPLETED See below for detailed history of patient's treatment from [employer] (edulio), interfaced electronic chemotherapy software, from 09-29-2013 thru 06-17-23. Sections of patient's VCM record were Archived on 09-03-23, due to slow response time for extensive treatment history with complex treatment plans. For detailed information on a specific cycle see the Cancer Tx Plan MALIK note for that date. [employer] (VCM) Patient Treatment History Date Range: 09-29-2013 through 06-17-23 Date: Cycle Treatment Regimen Fri09-29-13 1 Imatinib (Gleevec) 400 mg once daily Days to Executed Fri11-08-13 2 Imatinib (Gleevec) 400 mg once daily Days to Executed Fri12-29-13 3 Imatinib (Gleevec) 400 mg once daily Days to Executed Fri01-28-14 4 Imatinib (Gleevec) 400 mg once daily Days to Executed Fri02-27-14 5 Imatinib (Gleevec) 400 mg once daily Days 01 to Fri03-29-14 6 Imatinib (Gleevec) 400 mg once daily Days to 30 Fri05-03-14 7 Imatinib (Gleevec) 400 mg once daily Days to 30 Executed Fri05-16-14 8 Imatinib (Gleevec) 400 mg once daily Days to 30 Executed 03-04-15 9 Imatinib (Gleevec) 400 mg once daily Days to Executed Fri07-15-14 10 Imatinib (Gleevec) 400 mg once daily Days to Emily 08-18-14 11 Imatinib (Gleevec) 400 mg once daily Days to 09-12-14 12 Imatinib (Gleevec) 400 mg once daily Days to Executed Fri09-30-14 13 Imatinib (Gleevec) 400 mg once daily Days to 10-30-14 14 Imatinib (Gleevec) 400 mg once daily Days to Executed Fri11-29-14 15 Imatinib (Gleevec) 400 mg once daily Days to 12-21-14 16 Imatinib (Gleevec) 400 mg once daily Days to 02-01-15 17 Imatinib (Gleevec) 400 mg once daily Days to Executed Fri03-28-15 18 Imatinib (Gleevec) 400 mg once daily Days to Executed 05-07-15 19 Imatinib (Gleevec) 400 mg once daily Days to Executed Fri08-23-15 1 Dasatinib (CML-chronic phase) Days to Executed Alert 10-22-15 2 Dasatinib (CML-chronic phase) Days to Executed Alert 12-19-15 3 Dasatinib (CML-chronic phase) Days to Executed Alert Fri03-22-16 4 Dasatinib (CML-chronic phase) Days to Delayed Alert 04-23-16 5 Dasatinib (CML-chronic phase) Days to Executed Alert Emily 05-23-16 6 Dasatinib (CML-chronic phase) Days to Executed Alert Emily 07-25-16 7 Dasatinib (CML-chronic phase) Days to Delayed Alert 08-24-16 8 Dasatinib (CML-chronic phase) Days to Executed Alert 12-25-16 9 Dasatinib (CML-chronic phase) Days to Delayed Alert 03-31-17 10 Dasatinib (CML-chronic phase) Days to Delayed Alert 07-06-17 11 Dasatinib (CML-chronic phase) Days to Executed Alert 09-15-17 12 Dasatinib (CML-chronic phase) Days to Delayed Alert 12-31-17 13 Dasatinib (CML-chronic phase) Days to Executed Alert Emily 04-02-18 14 Dasatinib (CML-chronic phase) Days 01 to 30 Executed Alert 07-01-18 15 Dasatinib (CML-chronic phase) Days to Executed Alert 09-11-18 16 Dasatinib (CML-chronic phase) Days to Delayed Alert 12-19-18 17 Dasatinib (CML-chronic phase) Days to Executed Alert Emily 11-18-19 18 Dasatinib (CML-chronic phase) Days to Delayed Alert 02-16-20 19 Dasatinib (CML-chronic phase) Days to Delayed Alert Emily 07-06-20 20 Dasatinib (CML-chronic phase) [30ds,2r] Days to Executed 10-30-20 21 Dasatinib (CML-chronic phase) [30ds,0r] Days to Executed 11-29-20 22 Dasatinib (CML-chronic phase) [30ds,2r] Days to Executed 02-27-21 23 Dasatinib (CML-chronic phase) [30ds,2r] Days to Executed 05-28-21 24 Dasatinib (CML-chronic phase) [30ds, 2r] Days to Executed 08-26-21 26 Dasatinib (CML-chronic phase) [30ds, 2r] Days to Executed 11-24-21 27 Dasatinib (CML-chronic phase) DAYS 1 TO 30 0 rf Days to 12-24-21 30 Dasatinib (CML-chronic phase) 30 ds, 2r Days to Delayed 04-15-22 30 Dasatinib (CML-chronic phase) 30ds, 1rf Days to Executed 06-15-22 31 Dasatinib (CML-chronic phase) 30ds,2r Days to Executed Emily 10-03-22 32 Dasatinib (CML-chronic phase) Days to Executed Alert 01-08-23 33 Dasatinib (CML-chronic phase) Days to Executed Alert 04-08-23 34 Dasatinib (CML-chronic phase) Days to Executed Alert 06-17-23 35 Dasatinib (CML-chronic phase) Days to Executed Alert /es/ Aileen Alvarez Pharm.D. Clinical Auditor/Quality Signed: 09/03/2023 09:58 AILEEN ALVAREZ [facility]
--- OUTSIDE RECORDS SUMMARY | 2023-10-08 05:37 | XMS_ITS | Encounter Summary ---
Author Name [employer] Organization [facility] Address [address] [place] [address] Care Team Providers Care Director Of Graduate Medical Education Name Role Phone KYLEIGH VERDUGO Primary Care [...] Bejarano's Name Patient's Relationship to Policy Bejarano [facility] (WNR) MEDICARE (M) [facility] Apr 14, 2009 [id number] OSORIO POLLACK PATIENT [facility] (WNR) MEDICARE ADVANTAGE [facility] (WNR) Apr 14, 2009 DO NOT BILL [id number] [facility] OSORIO POLLACK PATIENT [facility] (WNR) MEDICARE ADVANTAGE [facility] (WNR) Apr 14, 2016 [id number] [phone] OSORIO POLLACK PATIENT MEDICARE PART D (WNR) MEDICARE (M) PART D Apr 14, 2021 PART D [id number] OSORIO POLLACK PATIENT Selected Encounter This section includes the information on record at [place] for the Encounter. Date/Time Encounter Type Encounter Description Reason Provider Source September 01, 2023 11:00 AM Outpatient Encounter TELEPHONE PRIMARY CARE ICD-10-CM I10 Essential (primary) hypertension KYLEIGH VERDUGO IHE Encounter Template Text not used by [place] Assessments - Encounter Diagnoses This section includes the primary and secondary diagnoses documented for the Encounter. Date/Time Primary/Secondary Diagnosis Diagnosis Name Provider Source September 01, 2023 11:00 AM PRIMARY Essential (primary) hypertension KYLEIGH VERDUGO [facility] Plan of Treatment: Future Appointments (+ 6 months) and Future Tests (+/- 45 days) The Plan of Treatment section includes future care activities for the patient from all [facility] This section includes future appointments and future orders which are active, pending or scheduled. Future Appointments This section includes appointments that were scheduled to occur 6 months from the date of the Encounter, up to a maximum of 20 appointments. The data comes from all [facility]. Appointment Date/Time Appointment Type Appointme nt Facility Name September 09, 2023 12:30 PM AMBULATORY - SURGERY [facility] Sep 30, 2023 11:00 AM AMBULATORY - MEDICINE [facility] Dec 02, 2023 09:30 AM AMBULATORY - NONE [facility] Dec 09, 2023 01:30 PM AMBULATORY - MEDICINE [facility] Feb 26, 2024 10:00 AM AMBULATORY - SURGERY [facility] Active, Pending, and Scheduled Orders This section includes a listing of several types of active, pending, and scheduled orders, including clinic medications orders, diagnostic test orders, procedure orders and consult orders; where the start date of the order is 45 days before the date of the Encounter or 45 days after the date of theEncounter. The data comes from all [facility]. Test Date/Time Test Type Test Details Facility Name Sep 30, 2023 11:54 AM Consult Order PODIATRY O UTPT Cons Oracle Application Architect's Choice [facility] Lab Results: +/- 30 days of [...] Range Comment Sep 30, 2023 04:24 PM [facility] ALBUMIN/CREATININE RATIO URINE Specimen Type: URINE No comment entered. Ordering Provider: KYLEIGH VERDUGO Report Released Date/Time: Sep 30, 2023 07:01 AM Reporting Lab: [facility] [id number] Performing Lab: [facility] [phone] CREATININE,UR RANDOM 65.0 mg/dL 58.0-161.0 ALB/CREAT RATIO,UR 21.5 mg/g{creat} <29.9 ALBUMIN,UR 14.0 mg/L <29.9 August 22, 2023 12:53 PM [facility] URINALYSIS Specimen Type: URINE No comment entered. Ordering Provider: KYLEIGH VERDUGO Report Released Date/Time: August 22, 2023 11:52 AM Reporting Lab: [facility] [phone] Performing Lab: [facility] [phone] URINE COLOR COLORLESS SPECIFIC GRAVITY 1.007 1.003-1.03 [...] NEGATIVE NEGATIVE August 22, 2023 09:07 AM [facility] KAPPA/LAMBDA LC FREE,RATIO Specimen Type: SERUM [...] therapy of these disorders. Test Performed by [employer] [facility], [address] [place], [place] El Sethi M.D., Ph.D., Director of Laboratories , CLIA [id number] Ordering Provider: SAMAN DEMPSEY Report Released Date/Time: May 02, 2023 02:16 PM Reporting Lab: [facility] [phone] Performing Lab: [facility] [id number] [facility] .KAPPA LT CHAIN,FREE 44.6 mg/L H 3.3-19.4 .LAMBDA LC,FREE 21.2 mg/L 5.7-26.3 .KAPPA/LAMBDA, FREE 2.10 H 0.26-1.65 August 22, 2023 09:07 AM [facility] ELP/IMMFIX,SERUM PANEL Specimen Type: SERUM No comment entered. Ordering Provider: SAMAN DEMPSEY Report Released Date/Time: May 02, 2023 02:16 PM Reporting Lab: [facility] [phone] Performing Lab: [facility] [phone] PROTEIN,TOTAL 7.4 g/dL 6.0-8.3 M-SPIKE 1 0.21 g/dL .IDENTIFICATIO N 1 IgM kappa .ALBUMIN FRACTION 4.88 g/dL H 3.66-4.78 .ALPHA 1 FRACTION 0.23 g/dL 0.14-0.38 .ALPHA 2 FRACTION 0.64 g/dL 0.50-0.90 .BETA 1 FRACTION 0.36 g/dL 0.33-0.55 .BETA 2 FRACTION 0.25 g/dL 0.20-0.52 .GAMMA FRACTION 1.05 g/dL 0.58-1.72 .TOTAL PROTEIN 7.4 g/dL 6.0-8.3 .INTERPRETATIO N MONOCLONAL August 22, 2023 09:07 AM [facility] BCR-ABL1 MAJOR QT PCR Specimen Type: BLOOD No comment entered. Ordering Provider: SAMAN DEMPSEY Report Released Date/Time: May 02, 2023 02:16 PM Reporting Lab: [facility] [phone] Performing Lab: [facility] [phone] BCR-ABL1 MAJOR QT <0.0030 <0 BCR-ABL1 INTERP POSITIVE for BCR-ABL1 major fusion transcript August 22, 2023 09:07 AM [facility] COMPREHENSIVE METABOLIC PANEL+MG Specimen Type: PLASMA No comment entered. Ordering Provider: SAMAN DEMPSEY Report Released Date/Time: May 02, 2023 02:16 PM Reporting Lab: [facility] [phone] Performing Lab: [facility] [phone] CREATININE 1.1 mg/dL 0.7-1.2 UREA NITROGEN 20 [...] 66 >60 August 22, 2023 09:07 AM [facility] CBC & DIFF Specimen Type: BLOOD Comment: Automated Differential Performed Ordering Provider: SAMAN DEMPSEY Report Released Date/Time: May 02, 2023 02:16 PM Reporting Lab: [facility] [phone] Performing Lab: [facility] [phone] WBC 4.80 10*3/uL 4.0-11.0 RBC 4.70 10*6/uL [...] 22, 2023 11:30 AM VA-TOBACCO FORMER USER [facility] Tobacco Use History This section includes a history of the smoking, or tobacco-related health factors, that were collected on or before the date of the Encounter. The data comes from the [place] facility where the Encounter took place. Date/Time Smoking Status/Tobacco Use Comment F acility August 22, 2023 11:30 AM VA-TOBACCO QUIT 15 YRS OR MORE [facility] Oct 03, 2022 09:00 AM VA-TOBACCO FORMER USER [facility] Oct 03, 2022 09:00 AM VA-TOBACCO QUIT 15 YRS OR MORE [facility] Sep 27, 2021 02:30 PM VA-TOBACCO FORMER USER [facility] Sep 27, 2021 02:30 PM VA-TOBACCO QUIT 15 YRS OR MORE [facility] Dec 09, 2019 12:30 PM VA-TOBACCO FORMER USER [facility] Dec 09, 2019 12:30 PM VA-TOBACCO QUIT 15 YRS OR MORE [facility] Oct 06, 2018 02:12 PM VA-TOBACCO FORMER USER [facility] Oct 06, 2018 02:12 PM VA-TOBACCO QUIT 15 YRS OR MORE [facility] Sep 17, 2017 02:55 PM FORMER TOBACCO USER 7Y OR GREATE R [facility] August 29, 2016 01:07 PM FORMER TOBACCO USER 7Y OR GREATE R [facility] Nov 06, 2015 01:10 PM FORMER TOBACCO USER 7Y OR GREATE R [facility] August 19, 2014 09:31 AM FORMER TOBACCO USER 7Y OR GREATE R [facility] August 31, 2013 08:06 AM FORMER TOBACCO USER 7Y OR [place] R [facility] Jul 02, 2006 10:49 AM FORMER TOBACCO USER 7Y OR [place] R [facility] Radiology Reports: +/- 30 days of [...] the Encounter. The data comes from all [facility] facilities. Date/Time Radiology Report Provider Source August 22, 2023 12:16 PM KNEE RIGHT 4 VIEWS : OSORIO POLLACK [id number] -[id number] M Exm Date: AUGUST 22, 2023@12:16 Req Phys: KYLEIGH VERDUGO Loc: [facility] PACT DALE 4E (Req'g Loc) Img Loc: MAIN X-RAY Service: [place] [address] (Case [id number] COMPLETE) KNEE RIGHT 4 VIEWS (RAD Detailed) CPT:99947 Reason for Study: bilateral pain Clinical History: Report Status: Verified Date Reported: AUGUST 22, 2023 Date Verified: AUGUST 22, 2023 Director Of Education And Training E-Sig: Report: 4 views of each knee [...] faint chondrocalcinosis. READING PHYSICIAN: Cleve Valentin M.D. -[phone] 08/22/2023 14:13 EDT [facility] b-datumradiology Program [phone] (For Medical Practitioner Use Only) Attention Patients / Veterans: If you have questions or concerns about these test results, please contact your ordering provider or primary care team. Primary Interpreting Staff: RADIOLOGY,OUTSIDE SERVICE, Staff Physician / RADIOLOGY,OUTSIDE SERVICE [facility] August 22, 2023 12:16 PM KNEE LEFT 4 VIEWS: OSORIO POLLACK [id number] -[id number] M Exm Date: AUGUST 22, 2023@12:16 Req Phys: KYLEIGH VERDUGO Loc: [facility] PACT DALE 4E (Req'g Loc) Img Loc: MAIN X-RAY Service: [place] [address] (Case [id number] COMPLETE) KNEE LEFT 4 VIEWS (RAD Detailed) CPT:05138 Reason for Study: bilateral pain Clinical History: Report Status: Verified Date Reported: AUGUST 22, 2023 Date Verified: AUGUST 22, 2023 Director Of Education And Training E-Sig: Report: 4 views of each knee [...] faint chondrocalcinosis. READING PHYSICIAN: Cleve Valentin M.D. -[phone] 08/22/2023 14:13 EDT [facility] National Teleradiology Program [phone] (For Medical Practitioner Use Only) Attention Patients / Veterans: If you have questions or concerns about these test results, please contact your ordering provider or primary care team. Primary Interpreting Staff: RADIOLOGY,OUTSIDE SERVICE, Staff Physician / RADIOLOGY,OUTSIDE SERVICE [facility] Encounter Notes: All associated encounter notes This section contains the clinical notes associated to the Encounter. Date/Time Encounter Note(s) Provider Source September 01, 2023 11:02 AM PACT NOTE: LOCAL TITLE: MEDICINE CLINIC PROVIDER TELEPHONE NOTE STANDARD TITLE: PACT NOTE DATE OF NOTE: SEPTEMBER 01, 2023@11:02 ENTRY DATE: SEPTEMBER 01, 2023@11:02:17 AUTHOR: KYLEIGH VERDUGO EXP COSIGNER: URGENCY: STATUS: COMPLETED History: Appointment made to discuss BP readings. Objective: Pt reports always having elevated BP when coming to clinic. Reports BP 140/&) at home today. Had bad reaction to Lisinopril in 2019 and not thilled to start another BP medication even if not related. Assessment/Plan: HTN: Pt declines stating BP medication at this point. Education/Counseling: Will check BP twice a day this week and report to the clinic on Friday. Time spent technology education instructor: 5-10 minutes /anoop/ KYLEIGH VERDUGO MD PHYSICIAN Signed: 09/01/2023 11:05 KYLEIGH VERDUGO [facility]
--- OUTSIDE RECORDS SUMMARY | 2023-10-08 05:38 | XMS_ITS | Encounter Summary ---
Author Name [employer] [facility] [employer] Organization [facility] Address [address] [place] [address] Care Team Providers Care Crepe Machine Operator Name Role Phone KYLEIGH VERDUGO [...] Bejarano's Name Patient's Relationship to Policy Bejarano [facility] (WNR) MEDICARE (M) BLUE EDICA RE VALUE P Apr 14, 2009 [id number] [phone] OSORIO POLLACK PATIENT [facility] (WNR) MEDICARE ADVANTAGE [facility] ([facility]) Apr 14, 2009 DO NOT BILL [id number] [facility] OSORIO POLLACK PATIENT [facility] (WNR) MEDICARE ADVANTAGE [facility] (WN) Apr 14, 2016 [id number] [phone] OSORIO POLLACK PATIENT MEDICARE PART D (WN) MEDICARE (M) PART D Apr 14, 2021 PART D [id number] [facility] OSORIO POLLACK PATIENT Selected Encounter This section includes the information on record at [place] for the Encounter. Date/Time Encounter Type Encounter Description Reason Provider Source September 09, 2023 12:30 PM OFFICE O/P NEW SF 15 MIN UROLOGY CLINIC ICD-10-CM N40.1 Benign prostatic hyperplasia with lower urinary tract symp QUIN ROCHE [facility] Encounter Template Text not used by [place] Assessments - Encounter Diagnoses This section includes the primary and secondary diagnoses documented for the Encounter. Date/Time Primary/Secondary Diagnosis Diagnosis Name Provider Source September 09, 2023 12:49 PM PRIMARY Benign prostatic hyperplasia with lower urinary tract symp QUIN ROCHE [facility] Plan of Treatment: Future Appointments (+ 6 months) and Future Tests (+/- 45 days) The Plan of Treatment section includes future care activities for the patient from all [place] [facility] This section includes future appointments and future orders which are active, pending or scheduled. Future Appointments This section includes appointments that were scheduled to occur 6 months from the date of the Encounter, up to a maximum of 20 appointments. The data comes from all [facility]. Appointment Date/Time Appointment Type Appointme nt Facility Name Sep 30, 2023 11:00 AM AMBULATORY - MEDICINE [facility] Dec 02, 2023 09:30 AM AMBULATORY - NONE [facility] Dec 09, 2023 01:30 PM AMBULATORY - MEDICINE [facility] Feb 26, 2024 10:00 AM AMBULATORY - SURGERY [facility] Active, Pending, and Scheduled Orders This section includes a listing of several types of active, pending, and scheduled orders, including clinic medications orders, diagnostic test orders, procedure orders and consult orders; where the start date of the order is 45 days before the date of the Encounter or 45 days after the date of theEncounter. The data comes from all [facility]. Test Date/Time Test Type Test Details Facility Name Sep 30, 2023 11:54 AM Consult Order PODIATRY O UTPT Cons In Tube Conversion Technician's Choice [facility] Lab Results: +/- 30 days of the encounter This section includes the Chemistry and Hematology Lab Results on record with [place] for the patient. Radiology Reports and Pathology Reports are provided separately, in subsequent sections. Lab Results This section contains the Chemistry/Hematology Results that were resulted 30 days before or 30 daysafter the date of the Encounter. Date/Time Source Result Type Result - Unit Interpretation Reference Range Comment Sep 30, 2023 04:[address] [facility] ALBUMIN/CREATININE RATIO URINE Specimen Type: URINE No comment entered. Ordering Provider: KYLEIGH VERDUGO Report Released Date/Time: Sep 30, 2023 07:01 AM Reporting Lab: [facility] [id number] Performing Lab: [facility] [id number] CREATININE,UR RANDOM 65.0 mg/dL 58.0-161.0 ALB/CREAT RATIO,UR 21.5 mg/g{creat} <29.9 ALBUMIN,UR 14.0 mg/L <29.9 August 22, 2023 12:[address] [facility] URINALYSIS Specimen Type: URINE No comment entered. Ordering Provider: KYLEIGH VERDUGO Report Released Date/Time: August 22, 2023 11:52 AM Reporting Lab: [facility] [id number] Performing Lab: [facility] [id number] URINE COLOR COLORLESS SPECIFIC GRAVITY 1.007 1.003-1.03 [...] NEGATIVE NEGATIVE August 22, 2023 09:[address] [facility] KAPPA/LAMBDA LC FREE,RATIO Specimen Type: SERUM [...] therapy of these disorders. Test Performed by [facility], [address] [place], [place] El Sethi M.D., Ph.D., Director of Laboratories , CLIA [id number] Ordering Provider: SAMAN DEMPSEY Report Released Date/Time: May 02, 2023 02:16 PM Reporting Lab: [facility] [phone] Performing Lab: [facility] [id number] [facility] .KAPPA LT CHAIN,FREE 44.6 mg/L H 3.3-19.4 .LAMBDA LC,FREE 21.2 mg/L 5.7-26.3 .KAPPA/LAMBDA, FREE 2.10 H 0.26-1.65 August 22, 2023 09:[address] [facility] ELP/IMMFIX,SERUM PANEL Specimen Type: SERUM No comment entered. Ordering Provider: SAMAN DEMPSEY Report Released Date/Time: May 02, 2023 02:16 PM Reporting Lab: [facility] [phone] Performing Lab: [facility] [id number] PROTEIN,TOTAL 7.4 g/dL 6.0-8.3 M-SPIKE 1 0.21 g/dL .IDENTIFICATIO N 1 IgM kappa .ALBUMIN FRACTION 4.88 g/dL H 3.66-4.78 .ALPHA 1 FRACTION 0.23 g/dL 0.14-0.38 .ALPHA 2 FRACTION 0.64 g/dL 0.50-0.90 .BETA 1 FRACTION 0.36 g/dL 0.33-0.55 .BETA 2 FRACTION 0.25 g/dL 0.20-0.52 .GAMMA FRACTION 1.05 g/dL 0.58-1.72 .TOTAL PROTEIN 7.4 g/dL 6.0-8.3 .INTERPRETATIO N MONOCLONAL August 22, 2023 09:[address] [facility] BCR-ABL1 MAJOR QT PCR Specimen Type: BLOOD No comment entered. Ordering Provider: SAMAN DEMPSEY Report Released Date/Time: May 02, 2023 02:16 PM Reporting Lab: [facility] [phone] Performing Lab: [facility] [phone] BCR-ABL1 MAJOR QT <0.0030 <0 BCR-ABL1 INTERP POSITIVE for BCR-ABL1 major fusion transcript August 22, 2023 09:[address] [facility] COMPREHENSIVE METABOLIC PANEL+MG Specimen Type: PLASMA No comment entered. Ordering Provider: SAMAN DEMPSEY Report Released Date/Time: May 02, 2023 02:16 PM Reporting Lab: [facility] [phone] Performing Lab: [facility] [phone] CREATININE 1.1 mg/dL 0.7-1.2 UREA NITROGEN 20 [...] 66 >60 August 22, 2023 09:[address] [facility] CBC & DIFF Specimen Type: BLOOD Comment: Automated Differential Performed Ordering Provider: SAMAN DEMPSEY Report Released Date/Time: May 02, 2023 02:16 PM Reporting Lab: [facility] [phone] Performing Lab: [facility] [phone] WBC 4.80 10*3/uL 4.0-11.0 RBC 4.70 10*6/uL [...] and tobacco- related health factors from the [place] facility where the Encounter took place. Current Smoking Status This section includes the most current smoking, or tobacco-related health factor, from the [place] facility where the Encounter took place. Date/Time Current Smoking Status Comment Facil ity August 22, 2023 11:30 AM [facility]-TOBACCO FORMER USER [facility] Tobacco Use History This section includes a history of the smoking, or tobacco-related health factors, that were collected on or before the date of the Encounter. The data comes from the [place] facility where the Encounter took place. Date/Time Smoking Status/Tobacco Use Comment F acility August 22, 2023 11:30 AM VA-TOBACCO QUIT [address] [facility] Oct 03, 2022 09:00 AM VA-TOBACCO FORMER USER [facility] Oct 03, 2022 09:00 AM VA-TOBACCO QUIT [address] [facility] Sep 27, 2021 02:30 PM VA-TOBACCO FORMER USER [facility] Sep 27, 2021 02:30 PM VA-TOBACCO QUIT [address] [facility] Dec 09, 2019 12:30 PM VA-TOBACCO FORMER USER [facility] Dec 09, 2019 12:30 PM VA-TOBACCO QUIT [address] [facility] Oct 06, 2018 02:12 PM VA-TOBACCO FORMER USER [facility] Oct 06, 2018 02:12 PM VA-TOBACCO QUIT [address] [facility] Sep 17, 2017 02:55 PM FORMER TOBACCO USER 7Y OR GREATE R [facility] August 29, 2016 01:07 PM FORMER TOBACCO USER 7Y OR GREATE R [facility] Nov 06, 2015 01:10 PM FORMER TOBACCO USER 7Y OR GREATE R [facility] August 19, 2014 09:31 AM FORMER TOBACCO USER 7Y OR GREATE R [facility] August 31, 2013 08:06 AM FORMER TOBACCO USER 7Y OR GREATE R [facility] Jul 02, 2006 10:49 AM FORMER TOBACCO USER 7Y OR GREATE R [facility] Radiology Reports: +/- 30 days of [...] the Encounter. The data comes from all [facility] facilities. Date/Time Radiology Report Provider Source August 22, 2023 12:16 PM KNEE RIGHT 4 VIEWS : OSORIO POLLACK [id number] -[id number] M Exm Date: AUGUST 22, 2023@12:16 Req Phys: KYLEIGH VERDUGO Pat Loc: [facility] PACT DALE 4E (Req'g Loc) Img Loc: MAIN X-RAY Service: [place] [address] (Case [id number] COMPLETE) KNEE RIGHT 4 VIEWS (RAD Detailed) CPT:21134 Reason for Study: bilateral pain Clinical History: Report Status: Verified Date Reported: AUGUST 22, 2023 Date Verified: AUGUST 22, 2023 Toddler Nanny E-Sig: Report: 4 views of each knee [...] faint chondrocalcinosis. READING PHYSICIAN: Cleve Valentin M.D. -[phone] 08/22/2023 14:13 EDT [facility] Wow! Stuffiology Program [phone] (For Medical Practitioner Use Only) Attention Patients / Veterans: If you have questions or concerns about these test results, please contact your ordering provider or primary care team. Primary Interpreting Staff: RADIOLOGY,OUTSIDE SERVICE, Staff Physician / RADIOLOGY,OUTSIDE SERVICE [facility] August 22, 2023 12:16 PM KNEE LEFT 4 VIEWS: OSORIO POLLACK [id number] -[id number] M Exm Date: AUGUST 22, 2023@12:16 Req Phys: KYLEIGH VERDUGO Loc: [facility] PACT DALE 4E (Req'g Loc) Img Loc: MAIN X-RAY Service: [place] [address] (Case [id number] COMPLETE) KNEE LEFT 4 VIEWS (RAD Detailed) CPT:55159 Reason for Study: bilateral pain Clinical History: Report Status: Verified Date Reported: AUGUST 22, 2023 Date Verified: AUGUST 22, 2023 Toddler Nanny E-Sig: Report: 4 views of each knee [...] faint chondrocalcinosis. READING PHYSICIAN: Cleve Valentin M.D. -[phone] 08/22/2023 14:13 EDT [facility] National Teleradiology Program [phone] (For Medical Practitioner Use Only) Attention Patients / Veterans: If you have questions or concerns about these test results, please contact your ordering provider or primary care team. Primary Interpreting Staff: RADIOLOGY,OUTSIDE SERVICE, Staff Physician / RADIOLOGY,OUTSIDE SERVICE [facility] Encounter Notes: All associated encounter notes This section contains the clinical notes associated to the Encounter. Date/Time Encounter Note(s) Provider Source September 09, 2023 12:33 PM UROLOGY NURSING OU TPATIENT NOTE: LOCAL TITLE: UROLOGY CLINIC NURSING NOTE STANDARD TITLE: UROLOGY NURSING OUTPATIENT NOTE DATE OF NOTE: SEPTEMBER 09, 2023@12:33 ENTRY DATE: SEPTEMBER 09, 2023@12:33:52 AUTHOR: TERE ALTAMIRANO EXP COSIGNER: URGENCY: STATUS: COMPLETED Nursing Procedures: Residual Urine (RU) Patient instructed and verbalizes that s/he has emptied the bladder completely. Ultrasound RU: 171 cc /es/ TERE ALTAMIRANO LPN LICENSED PRACTICAL NURSE Signed: 09/09/2023 12:[address] [facility] September 09, 2023 12:32 PM UROLOGY CONSULT: LOCAL TITLE: UROLOGY CONSULT STANDARD TITLE: UROLOGY CONSULT DATE OF NOTE: SEPTEMBER 09, 2023@12:32 ENTRY DATE: SEPTEMBER 09, 2023@12:32:37 AUTHOR: QUIN ROCHE EXP COSIGNER: URGENCY: STATUS: COMPLETED Chief Complaint: Retention OSORIO Wheatley is a 83 year old who presents for retention. Pt reports he is doing better since he was placed on a new medication. He has not taken anything like that in the past and he was surprised how much it helped. URINARY SYMPTOMS Urinary stream: Weak Frequency: Improved Urgency: Improved Hesitancy: Emptying: Difficult without medication Nocturia: 0-1 was 3x/night Incontinence: Yes Pads/day: Denies Dysuria: Denies Hematuria: Denies History of UTI: No Hx prostate surgery: Denies Alpha chandrakant: Tamsulosin Finasteride: Bowel movements: WNL - constipated at times Fluid intake: Caffeine intake: IPSS- QOL- IIEF- PAST MEDICAL HISTORY: History of immune thrombocytopenia (SCT Type 2 diabetes mellitus (SCT 55831252) Skin cancer (SCT 222571135) Hearing loss (SCT 63271889) Osteoarthritis (SCT 884504282) Trigger finger (acquired) (ICD-9-CM 727.03) Benign prostatic hypertrophy with outfloChronic myeloid leukemia (SCT 56067099) Chronic low back pain (SCT 361644758) Hyperlipidemia (SCT 40005354) Solitary nodule of lung (SCT 910780129) Insomnia (SCT 953759930) ECG: ventricular ectopics (SCT 780968399Naesufcaqqy (SCT 25162815) Inguinal hernia (SCT 096538731) 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 DO NOT CRUSH OR CUT. *SWALLOW WHOLE* 2) LOPERAMIDE HCL 2MG CAP TAKE ONE CAPSULE BY MOUTH HOLD EVERY 2 HOURS NEEDED FOR DIARRHEA- TAKE 2 CAPSULES AT ONSET THEN 1 CAPSULE EVERY 2 HOURS UNTIL NO DIARRHEA FOR 12 HOURS. MAXIMUM 8 CAPSULES/24HOURS. 3) PROCHLORPERAZINE MALEATE 10MG TAB TAKE ONE TABLET BY HOLD MOUTH FOUR TIMES A DAY NEEDED FOR NAUSEA AND VOMITING. DO NOT TAKE MORE THAN 40 MG PER DAY. 4) TAMSULOSIN HCL 0.4MG CAP TAKE ONE CAPSULE BY MOUTH AT ACTIVE BEDTIME FOR URINARY SYMPTOMS Allergies: FLUCONAZOLE (August 29, 2016) LISINOPRIL (Nov 30, 2018) FAMILY HISTORY: Hx of prostate cancer: Father? Hx of renal cancer: Denies Hx of bladder cancer: Denies SOCIAL HISTORY: Lives at home with: Children: Occupation: Tobacco use: Alcohol use: Illicit drug use: Branch of service: [employer] exposure: Denies Chemical/dyes/burn pit exposure: REVIEW OF SYSTEMS: General: HEENT: Cardio: Respir: GI: : See HPI Musc: Neuro: Psych: Skin: Heme: PHYSICAL EXAM: VS - Vital Signs No data available Gen: No acute distress, A&Ox3 - forgetful Neck: Trachea midline Resp: No increased work of breathing Abd: Soft, flat Skin: Warm and dry, no visible rashes/bruises Ext: No cyanosis, or edema. : Penis: Circumcised. Normal orthotopic meatus. No drainage is noted. No palpable penile plaques. No lesions. Testes: descended, symmetrical bilat, no masses noted. Scrotum: loose. No hydroceles bilaterally. No inflammation noted. No varicoceles bilaterally. Epididymis without pain to palpation or spermatocele. SHANI: Normal sphincter tone. No fecal impaction, masses, tenderness or hemorrhoids noted. Prostate is +2 and left side higher. Consistency normal. No discreet nodules noted. PVR today via bladder scan: 171ml Previous 397ml LABS: PSA - NONE FOUND TESTOSTERONE____ UA reviewed from 08/22/23 CULTURE & SUSCEPTIBILITY____ IMAGING: N/A ASSESSMENT: BPH PLAN: Continue Tamsulosin RTC PRN Time spent: 21 minutes (Includes review of chart, medications, labs/imaging reports, communication of new results, outside records, patient education/counseling, and coordination of care) /anoop/ Quin Roche SENIOR ACCOUNTING MANAGER/ROUNDING AND BACKING MACHINE OPERATOR ROUNDING AND BACKING MACHINE OPERATOR, SHEEP BONER Signed: 09/09/2023 12:50 QUIN ROCHE [facility]
--- OUTSIDE RECORDS SUMMARY | 2023-10-08 05:38 | XMS_ITS | Encounter Summary ---
Author Name [facility] Organization [facility] Address [address] [place] [address] Care Team Providers Care Answering Service Operator Name Role Phone KYLEIGH VERDUGO Primary [...] Bejarano's Name Patient's Relationship to Policy Bejarano [facility] (WNR) MEDICARE (M) [facility] RE VALUE P Apr 14, 2009 [id number] OSORIO POLLACK PATIENT [facility] (WNR) MEDICARE ADVANTAGE [facility] ([facility]) Apr 14, 2009 DO NOT BILL [id number] [facility] OSORIO POLLACK PATIENT [facility] (WNR) MEDICARE ADVANTAGE [facility] (WNR) Apr 14, 2016 [id number] [phone] OSORIO POLLACK PATIENT MEDICARE PART D (WN) MEDICARE (M) PART D Apr 14, 2021 PART D [id number] [facility] OSORIO POLLACK PATIENT Selected Encounter This section includes the information on record at [place] for the Encounter. Date/Time Encounter Type Encounter Description Reason Provider Source September 12, 2023 10:26 AM Outpatient Encounter CHEMOTHERAPY PROC. [facility]. SAMAN DEMPSEY Trevon Encounter Template Text not used by [place] Plan of Treatment: Future Appointments (+ 6 months) and Future Tests (+/- 45 days) The Plan of Treatment section includes future care activities for the patient from all [place] treatmentfacilities. This section includes future appointments and future orders which are active, pending or scheduled. Future Appointments This section includes appointments that were scheduled to occur 6 months from the date of the Encounter, up to a maximum of 20 appointments. The data comes from all [facility]. Appointment Date/Time Appointment Type Appointme nt Facility Name Sep 30, 2023 11:00 AM AMBULATORY - MEDICINE [facility] Dec 02, 2023 09:30 AM AMBULATORY - NONE [facility] Dec 09, 2023 01:30 PM AMBULATORY - MEDICINE [facility] Feb 26, 2024 10:00 AM [facility] Active, Pending, and Scheduled Orders This section includes a listing of several types of active, pending, and scheduled orders, including clinic medications orders, diagnostic test orders, procedure orders and consult orders; where the start date of the order is 45 days before the date of the Encounter or 45 days after the date of theEncounter. The data comes from all [facility]. Test Date/Time Test Type Test Details Facility Name Sep 30, 2023 11:54 AM Consult Order PODIATRY O UTPT Cons [facility] Lab Results: +/- 30 days of the encounter This section includes the Chemistry and Hematology Lab Results on record with [place] for the patient. Radiology Reports and Pathology Reports are provided separately, in subsequent sections. Lab Results This section contains the Chemistry/Hematology Results that were resulted 30 days before or 30 daysafter the date of the Encounter. Date/Time Source Result Type Result - Unit Interpretation Reference Range Comment Sep 30, 2023 04:24 PM [facility] ALBUMIN/CREATININE RATIO URINE Specimen Type: URINE No comment entered. Ordering Provider: KYLEIGH VERDUGO Report Released Date/Time: Sep 30, 2023 07:01 AM Reporting Lab: [facility] [id number] Performing Lab: [facility] [id number] CREATININE,UR RANDOM 65.0 mg/dL 58.0-161.0 ALB/CREAT RATIO,UR 21.5 mg/g{creat} <29.9 ALBUMIN,UR 14.0 mg/L <29.9 August 22, 2023 12:53 PM [facility] URINALYSIS Specimen Type: URINE No comment entered. Ordering Provider: KYLEIGH VERDUGO Report Released Date/Time: August 22, 2023 11:52 AM Reporting Lab: [facility] [id number] Performing Lab: [facility] [id number] URINE COLOR COLORLESS SPECIFIC GRAVITY 1.007 1.003-1.03 [...] NEGATIVE NEGATIVE August 22, 2023 09:07 AM [facility] KAPPA/LAMBDA LC FREE,RATIO Specimen Type: SERUM Comment: [...] therapy of these disorders. Test Performed by [employer] [facility], [employer] [facility], [address] [place] [address] El Sethi M.D., Ph.D., Director of Laboratories , [place] [id number] Ordering Provider: SAMAN DEMPSEY Report Released Date/Time: May 02, 2023 02:16 PM Reporting Lab: [facility] [address] Performing Lab: [address] .KAPPA LT CHAIN,FREE 44.6 mg/L H 3.3-19.4 .LAMBDA LC,FREE 21.2 mg/L 5.7-26.3 .KAPPA/LAMBDA, FREE 2.10 H 0.26-1.65 August 22, 2023 09:07 AM [facility] ELP/IMMFIX,SERUM PANEL Specimen Type: SERUM No comment entered. Ordering Provider: SAMAN DEMPSEY Report Released Date/Time: May 02, 2023 02:16 PM Reporting Lab: [facility] [id number] Performing Lab: [facility] [id number] PROTEIN,TOTAL 7.4 g/dL 6.0-8.3 M-SPIKE 1 0.21 g/dL .IDENTIFICATIO N 1 IgM kappa .ALBUMIN FRACTION 4.88 g/dL H 3.66-4.78 .ALPHA 1 FRACTION 0.23 g/dL 0.14-0.38 .ALPHA 2 FRACTION 0.64 g/dL 0.50-0.90 .BETA 1 FRACTION 0.36 g/dL 0.33-0.55 .BETA 2 FRACTION 0.25 g/dL 0.20-0.52 .GAMMA FRACTION 1.05 g/dL 0.58-1.72 .TOTAL PROTEIN 7.4 g/dL 6.0-8.3 .INTERPRETATIO N MONOCLONAL August 22, 2023 09:07 AM [facility] BCR-ABL1 MAJOR QT PCR Specimen Type: BLOOD No comment entered. Ordering Provider: SAMAN DEMPSEY Report Released Date/Time: May 02, 2023 02:16 PM Reporting Lab: [facility] [address] Performing Lab: [facility] [id number] BCR-ABL1 MAJOR QT <0.0030 <0 BCR-ABL1 INTERP POSITIVE for BCR-ABL1 major fusion transcript August 22, 2023 09:07 AM [facility] COMPREHENSIVE METABOLIC PANEL+MG Specimen Type: PLASMA No comment entered. Ordering Provider: SAMAN DEMPSEY Report Released Date/Time: May 02, 2023 02:16 PM Reporting Lab: [facility] [address] Performing Lab: [facility] [address] CREATININE 1.1 mg/dL 0.7-1.2 UREA NITROGEN 20 [...] 66 >60 August 22, 2023 09:07 AM [facility] CBC & DIFF Specimen Type: BLOOD Comment: Automated Differential Performed Ordering Provider: SAMAN DEMPSEY Report Released Date/Time: May 02, 2023 02:16 PM Reporting Lab: [facility] [phone] Performing Lab: [facility] [phone] WBC 4.80 10*3/uL 4.0-11.0 RBC 4.70 10*6/uL [...] and tobacco- related health factors from the [place] facility where the Encounter took place. Current Smoking Status This section includes the most current smoking, or tobacco-related health factor, from the [place] facility where the Encounter took place. Date/Time Current Smoking Status Comment Facil ity August 22, 2023 11:30 AM VA-TOBACCO FORMER USER [facility] Tobacco Use History This section includes a history of the smoking, or tobacco-related health factors, that were collected on or before the date of the Encounter. The data comes from the [place] facility where the Encounter took place. Date/Time Smoking Status/Tobacco Use Comment F acility August 22, 2023 11:30 AM VA-TOBACCO QUIT 15 YRS OR MORE [facility] Oct 03, 2022 09:00 AM VA-TOBACCO FORMER USER [facility] Oct 03, 2022 09:00 AM VA-TOBACCO QUIT 15 YRS OR MORE [facility] Sep 27, 2021 02:30 PM VA-TOBACCO FORMER USER [facility] Sep 27, 2021 02:30 PM VA-TOBACCO QUIT 15 YRS OR MORE [facility] Dec 09, 2019 12:30 PM VA-TOBACCO FORMER USER [facility] Dec 09, 2019 12:30 PM VA-TOBACCO QUIT 15 YRS OR MORE [facility] Oct 06, 2018 02:12 PM VA-TOBACCO FORMER USER [facility] Oct 06, 2018 02:12 PM VA-TOBACCO QUIT 15 YRS OR MORE [facility] Sep 17, 2017 02:55 PM FORMER TOBACCO USER 7Y OR GREATE R [facility] August 29, 2016 01:07 PM FORMER TOBACCO USER 7Y OR GREATE R [facility] Nov 06, 2015 01:10 PM FORMER TOBACCO USER 7Y OR GREATE R [facility] August 19, 2014 09:31 AM FORMER TOBACCO USER 7Y OR GREATE R [facility] August 31, 2013 08:06 AM FORMER TOBACCO USER 7Y OR GREATE R [facility] Jul 02, 2006 10:49 AM FORMER TOBACCO USER 7Y OR GREATE R [facility] Radiology Reports: +/- 30 days of the [...] the Encounter. The data comes from all [place] treatment facilities. Date/Time Radiology Report Provider Source August 22, 2023 12:16 PM KNEE RIGHT 4 VIEWS : OSORIO POLLACK [id number] -[id number] M Exm Date: AUGUST 22, 2023@12:16 Req Phys: KYLEIGH VERDUGO Loc: [facility] 4E (Req'g Loc) Img Loc: MAIN X-RAY Service: [place] [address] (Case [id number] COMPLETE) KNEE RIGHT 4 VIEWS (RAD Detailed) CPT:50194 Reason for Study: bilateral pain Clinical History: Report Status: Verified Date Reported: AUGUST 22, 2023 Date Verified: AUGUST 22, 2023 Soil Conservation Technician E-Sig: Report: 4 views of each knee [...] faint chondrocalcinosis. READING PHYSICIAN: Cleve Valentin M.D. -[id number] 08/22/2023 14:13 EDT [facility] [phone] (For Medical Practitioner Use Only) Attention Patients / Veterans: If you have questions or concerns about these test results, please contact your ordering provider or primary care team. Primary Interpreting Staff: RADIOLOGY,OUTSIDE SERVICE, Staff Physician / RADIOLOGY,OUTSIDE SERVICE [facility] August 22, 2023 12:16 PM KNEE LEFT 4 VIEWS: OSORIO POLLACK [id number] -1940 M Exm Date: AUGUST 22, 2023@12:16 Req Phys: KYLEIGH VERDUGO Loc: [facility] 4E (Req'g Loc) Img Loc: MAIN X-RAY Service: [place] [address] (Case [id number] COMPLETE) KNEE LEFT 4 VIEWS (RAD Detailed) CPT:67379 Reason for Study: bilateral pain Clinical History: Report Status: Verified Date Reported: AUGUST 22, 2023 Date Verified: AUGUST 22, 2023 Soil Conservation Technician E-Sig: Report: 4 views of each knee [...] faint chondrocalcinosis. READING PHYSICIAN: Cleve Valentin M.D. -[id number] 08/22/2023 14:13 EDT [facility] [phone] (For Medical Practitioner Use Only) Attention Patients / Veterans: If you have questions or concerns about these test results, please contact your ordering provider or primary care team. Primary Interpreting Staff: RADIOLOGY,OUTSIDE SERVICE, Staff Physician / RADIOLOGY,OUTSIDE SERVICE [facility]
--- OUTSIDE RECORDS SUMMARY | 2023-10-08 05:39 | XMS_ITS | Encounter Summary ---
Author Name [employer] [facility] [employer] Organization [facility] [employer] Address [address] [place] [address] Care Team Providers Care Senior Systems Administrator Name Role Phone KYLEIGH VERDUGO Primary Care [...] Bejarano's Name Patient's Relationship to Policy Bejarano [facility] (WNR) MEDICARE (M) BLUE EDICA RE VALUE P Apr 14, 2009 [id number] [phone] OSORIO POLLACK PATIENT [facility] (WNR) MEDICARE ADVANTAGE [facility] ([facility]) Apr 14, 2009 DO NOT BILL [id number] [facility] [phone] OSORIO POLLACK PATIENT [facility] (WNR) MEDICARE ADVANTAGE [facility] (WN) Apr 14, 2016 [id number] [phone] OSORIO POLLACK PATIENT MEDICARE PART D (WN) MEDICARE (M) PART D Apr 14, 2021 PART D [id number] [facility] OSORIO POLLACK PATIENT Selected Encounter This section includes the information on [place] at [place] for the [place]counter. Date/Time Encounter Type Encounter Description Reason Provider Source Sep 30, 2023 11:00 AM OFFICE O/P EST MOD 30 MIN PRIMARY CARE/MEDICINE ICD-10-CM I10 Essential (primary) hypertension KYLEIGH VERDUGO [place] Encounter Template Text not used by [place] Assessments - Encounter Diagnoses This section includes the primary and secondary diagnoses documented for the Encounter. Date/Time Primary/Secondary Diagnosis Diagnosis Name Provider Source Sep 30, 2023 12:05 PM PRIMARY Essential (primary) hypertension KYLEIGH VERDUGO [facility] Sep 30, 2023 12:05 PM SECONDARY Benign prostatic hyperplasia with lower urinary tract symp KYLEIGH VERDUGO [facility] Sep 30, 2023 12:05 PM SECONDARY Hyperlipidemia, unspecified KYLEIGH VERDUGO [facility] Sep 30, 2023 12:05 PM SECONDARY Pain in left knee KYLEIGH VERDUGO [facility] Sep 30, 2023 12:05 PM SECONDARY Pain in unspecified knee KYLEIGH VERDUGO [facility] Sep 30, 2023 12:05 PM SECONDARY Paresthesia of skin LUCINAMANUEL [facility] Plan of Treatment: Future Appointments (+ 6 months) and Future Tests (+/- 45 days) The Plan of Treatment section includes future care activities for the [facility] [place] [facility] This section includes future appointments and future orders which are active, pending or scheduled. Future Appointments This section includes appointments that were scheduled to occur 6 months from the date of the Encounter, up to a maximum of 20 appointments. The data comes from all [facility] facilities. Appointment Date/Time Appointment Type Appointme nt Facility Name Dec 02, 2023 09:30 AM AMBULATORY - NONE ZENOBIA MCCURDY [facility] Dec 09, 2023 01:30 PM AMBULATORY - MEDICINE RICKY WALL [facility] Feb 26, 2024 10:00 AM AMBULATORY - SURGERY [facility] Active, Pending, and Scheduled Orders This section includes a listing of several types of active, pending, and scheduled orders, including clinic medications orders, diagnostic test orders, procedure orders and consult orders; where the start date of the order is 45 days before the date of the Encounter or 45 days after the date of theEncounter. The data comes from all [facility]. 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 Ordering Provider: KYLEIGH VERDUGO Report Released Date/Time: Sep 30, 2023 07:01 AM Reporting Lab: [facility] [id number] Performing Lab: [facility] [id number] CREATININ E,UR RANDOM 65.0 mg/dL 58.0-161.0 ALB/CREAT RATIO,UR 21.5 mg/g{creat} <29.9 ALBUMIN,U R 14.0 mg/L <29.9 Vital Signs: All taken on the encounter date This section contains inpatient and outpatient Vital Signs collected on the date of the Encounter. Date/Time Temperature Pulse Blood Pressure Respiratory Rate SP02 Pain Height Weight Body Mass Index Source Sep 30, 2023 11:21 AM 97.9 73 171/78 14 96 0 220.4 29 [place] [facility] Social History: Smoking Status (Most current) and Tobacco Use (All prior to encounter date) This section includes the most current, and the historical, smoking and tobacco- related health factors from the [place] facility where the Encounter took place. Current Smoking Status This section includes the most current smoking, or tobacco-related health factor, from the [place] facility where the Encounter took place. Date/Time Current Smoking Status Comment Charlette reardon August 22, 2023 11:30 AM VA-TOBACCO FORMER USER [facility] Tobacco Use History This section includes a history of the smoking, or tobacco-related health factors, that were collected on or before the date of the Encounter. The data comes from the [place] facility where the Encounter took place. Date/Time Smoking Status/Tobacco Use Comment F zabrina August 22, 2023 11:30 AM VA-TOBACCO QUIT 15 YRS OR MORE [facility] Oct 03, 2022 09:00 AM VA-TOBACCO FORMER USER [facility] Oct 03, 2022 09:00 AM VA-TOBACCO QUIT 15 YRS OR MORE [facility] Sep 27, 2021 02:30 PM VA-TOBACCO FORMER USER [facility] Sep 27, 2021 02:30 PM VA-TOBACCO QUIT 15 YRS OR MORE [facility] Dec 09, 2019 12:30 PM VA-TOBACCO FORMER USER [facility] Dec 09, 2019 12:30 PM VA-TOBACCO QUIT 15 YRS OR MORE [facility] Oct 06, 2018 02:12 PM VA-TOBACCO FORMER USER [facility] Oct 06, 2018 02:12 PM VA-TOBACCO QUIT 15 YRS OR MORE [facility] Sep 17, 2017 02:55 PM FORMER TOBACCO USER 7Y OR GREATE R [facility] August 29, 2016 01:07 PM FORMER TOBACCO USER 7Y OR GREATE R [facility] Nov 06, 2015 01:10 PM FORMER TOBACCO USER 7Y OR GREATE R [facility] August 19, 2014 09:31 AM FORMER TOBACCO USER 7Y OR GREATE R [facility] August 31, 2013 08:06 AM FORMER TOBACCO USER 7Y OR GREATE R [facility] Jul 02, 2006 10:49 AM FORMER TOBACCO USER 7Y OR GREATE R [facility] Encounter Notes: All associated encounter notes This section contains the clinical notes associated to the Encounter. Date/Time Encounter Note(s) Provider Source Sep 30, 2023 11:53 AM ADMINISTRATIVE NOTE: LOCAL TITLE: AFTER VISIT SUMMARY NOTE STANDARD TITLE: ADMINISTRATIVE NOTE DICT DATE: SEP 30, 2023@11:53:25 ENTRY DATE: SEP 30, 2023@11:53:25 DICTATED BY: KYLEIGH VERDUGO EXP COSIGNER: URGENCY: STATUS: COMPLETED The patient was provided with a copy of an after-visit summary at the conclusion of the visit. A copy of the after-visit summary provided to the patient is available in [employer]. SCANNED DOCUMENT SIGNATURE NOT REQUIRED Electronically Filed: 09/30/2023 by: KYLEIGH VERDUGO MD PHYSICIAN KYLEIGH VERDUGO [facility] Sep 30, 2023 11:40 AM INTERNAL MEDICINE NOTE: LOCAL TITLE: MEDICINE CLINIC NOTE STANDARD TITLE: INTERNAL MEDICINE NOTE DATE OF NOTE: SEP 30, 2023@11:40 ENTRY DATE: SEP 30, 2023@11:40:52 AUTHOR: KYLEIGH VERDUGO EXP COSIGNER: URGENCY: STATUS: COMPLETED Nurses notes from today reviewed. OSORIO POLLACK is a 83 year old MALE. Reason for the visit:annual? No labs. HPI: - BPH sx improved. - Wants knees shot. - Brings BP chart. - Occasionally plantar pain when walking. Regardless of type of shoes. ROS: Feels well No weight loss No [...] followin. History of immune thrombocytopenia (SNOMED CT 876615791) 2. Type 2 diabetes mellitus 3. Skin cancer (SNOMED CT 945163838) - H/O SCCA in 2010. 4. Hearing loss (SNOMED CT 11993381) 5. Osteoarthritis - S/P left knee arthroscopy in 1994. - S/P right shoulder decompression in 2002. 6. Trigger finger (acquired) 7. Benign prostatic hypertrophy with outflow obstruction 8. Chronic myeloid leukemia (SNOMED CT 32696858) 9. Chronic low back pain 10. Hyperlipidemia [...] TAKE ONE CAPSULE BY MOUTH AT ACTIVE (S) BEDTIME FOR URINARY SYMPTOMS Family /Social hx (x ) not applicable [...] () adviced to quit EXAM: VS Temp: 97.9 F [36.6 C] (09/30/2023 11:21) BP: 171/78 (09/30/2023 11:21) HR: 73 (09/30/2023 11:21) RR: 14 (09/30/2023 11:21) Pain: 0 (09/30/2023 11:21) Weight:WEIGHTS IN LAST 6 MONTHS: 220.4 (SEP 30, 2023@11:21:04) 217.6 (AUGUST 29, 2023@11:06:18) GRAL: NAD MENTAL STATUS:alert/cooperative/or iented EXT:no cce. See PAVE below. Data/Labs: LAB RESULTS LAST 48 HRS - NONE FOUND ( ) Patient/Escalator Constructor was informed of available lab, imaging, and other study results associated with todays visit. ( ) Result letter will be sent. Assessment and plan: 1) HTN: Elevated BP today. Pt brings home readings with SBP 120s-160s. Pt declines antihypertensive tx due to prior sever rxn to Lisinopril. Explained that plan is to start Amlodipine. Not an ACEi. 10 y risk of 28% communicated to patient. 2)Diabetes: On diet only. Will check A1c on next visit. 3) Abnl PAVE due to decreased sensory. Podiatry referral. 4)Hyperlipidemia: On diet only. 5) BPH: Reports better sx wiht Tamsulosin. 6) OA: Bilt knee pain: Had injections in [place] last April. Pt currently established with Orthopedic. Will go to clinic to request appointment. (x ) Patient/Caregiver indicates readiness to learn, verbalizes understanding, agreement and satisfaction with the treatment plan. Patient/Caregiver doesn't have any further questions today. Total time spent on patient care including chart/diagnostic/test review, patient interview/examination, ordering medications/tests, interpreting results,and counseling/documentation was 35 minutes. Medication Reconciliation: Education Evaluations *Was medication education provided for NEW medications or CHANGES to medications? (including medication name, dose, route, reason for use, and potential side effects). Yes. Verbal education was provided to patient/caregiver and patient/caregiver verbalized understanding. TERATOGENIC MED & CONTRACEPTION REVIEW (Optional)... ===== MEDICATION RECONCILIATION ===== List Given: An updated medication list was provided to the patient/caregiver. Review Done: The medication list shown below was verified for accuracy and it includes all pending medications/active medications/all medications or discontinued within the last 90 days/all remote medications and non-VA medications. If a given category (i.e. remote meds) is not shown, that means that a patient doesn't have a medication(s) in that category. Allergies listed below were also reviewed/updated for accuracy. Allergies/ADR from [employer] may not display in CPRS. Use JLV MRT5 - Allergies/ADRs FACILITY ALLERGY/ADR -------- [facility] FLUCONAZOLE [facility] LISINOPRIL [facility] FLUCONAZOLE [facility] LISINOPRIL Active and Recently Outpatient Medications (including Supplies): Issue Date Status Last Fill Active Outpatient Medications Refills Expiration 1) DASATINIB 50MG TAB Qty: 30 for 30 days ACTIVE Issu:09-12-23 Sig: TAKE ONE TABLET BY MOUTH EVERY Refills: 2 Last:09-12-23 DAY - AVOID GRAPEFRUIT PRODUCTS. DO Expr:09-12-24 NOT CRUSH OR CUT. *SWALLOW WHOLE* 2) LOPERAMIDE HCL 2MG CAP Qty: 60 for 30 HOLD Issu:06-16-23 days Sig: TAKE ONE CAPSULE BY MOUTH Refills: 1 EVERY 2 HOURS NEEDED FOR DIARRHEA- Expr:06-16-24 TAKE 2 CAPSULES AT ONSET THEN 1 CAPSULE EVERY 2 HOURS UNTIL NO DIARRHEA FOR 12 HOURS. MAXIMUM 8 CAPSULES/24HOURS. 3) PROCHLORPERAZINE MALEATE 10MG TAB Qty: HOLD Issu:06-16-23 60 for 30 days Sig: TAKE ONE TABLET Refills: 1 BY MOUTH FOUR TIMES A DAY NEEDED Expr:06-16-24 FOR NAUSEA AND VOMITING. DO NOT TAKE MORE THAN 40 MG PER DAY. 4) TAMSULOSIN HCL 0.4MG CAP Qty: 90 for 90 ACTIVE (S) Issu:09-09-23 days Sig: TAKE ONE CAPSULE BY MOUTH Refills: 3 Last:11-10-23 AT BEDTIME FOR URINARY SYMPTOMS Expr:09-09-24 Issue Date Status Last Fill Inactive Outpatient Medications Refills Expiration 1) DASATINIB 50MG TAB Qty: 30 for 30 days DISCONTINUED Issu:06-16-23 Sig: TAKE ONE TABLET BY MOUTH EVERY Refills: 0 Last:08-19-23 DAY - AVOID GRAPEFRUIT PRODUCTS. DO Expr:06-16-24 NOT CRUSH OR CUT. *SWALLOW WHOLE* 2) FLUOCINOLONE ACETONIDE 0.01% TOP SOLN Issu:08-28-22 Qty: 60 for 30 days Sig: APPLY TO Refills: 11 Last:08-30-22 SCALP AND EARS TOPICALLY TWICE A DAY Expr:08-29-23 NEEDED FOR PRURITIS EXTERNAL USE ONLY 3) KETOCONAZOLE 2% SHAMPOO Qty: 120 for 30 Issu:08-27-22 days Sig: SHAMPOO SCALP TOPICALLY 3 Refills: 5 Last:08-28-22 TIMES WEEKLY SEBORRHEIC DERMATITIS Expr:08-28-23 *LATHER FOR 5 MINUTES THEN RINSE* 4) TAMSULOSIN HCL 0.4MG CAP Qty: 90 for 90 DISCONTINUED Issu:08-22-23 days Sig: TAKE ONE CAPSULE BY MOUTH Refills: 0 Last:08-22-23 AT BEDTIME FOR URINARY SYMPTOMS Expr:11-20-23 8 Total Medications PAVE Foot Check: A complete foot check was completed at this encounter. VISUAL INSPECTION: Includes inspection for skin breaks, deformity, erythema, trauma, pallor on elevation, dependent rubor, nail deformities, extensive callus and pitting edema. Visual exam results: Normal PEDAL PULSES: Includes palpation of dorsalis and posterior tibial pulses and signs/symptoms of vascular compromise like pain, pallor, parasthesia or paralysis. Present (even if diminished) SENSORY CHECK: Includes 10 gram Monofilament ([place]-D[place]) test of sensation. Intact (Greater than or equal to 80% of sites checked) Abnormal (Less than 80% of sites checked): Abnormal (decreased or absent sensation to monofilament): HIGH-RISK: HIGH RISK INFORMATION PROVIDED: 1. Advised patient that extra depth footwear with soft molded inserts and braces may be required. 2. Advised patient not to walk barefoot. 3. Explained the importance of daily foot checks. 4. Stressed the importance of daily foot hygiene, including bathing, complete drying and thorough inspection for changes. The patient verbalized understanding and was offered a detailed handout on diabetic foot care. Patient referred to Podiatry. /es/ KYLEIGH VERDUGO MD PHYSICIAN Signed: 09/30/2023 12:05 KYLEIGH VERDUGO [facility] Sep 30, 2023 11:15 AM INTERNAL MEDICINE OUTPATIENT NOTE: LOCAL TITLE: MEDICINE CLINIC NURSING NOTE STANDARD TITLE: INTERNAL MEDICINE OUTPATIENT NOTE DATE OF NOTE: SEP 30, 2023@11:15 ENTRY DATE: SEP 30, 2023@11:15:18 AUTHOR: BRITTNEY SMALLS EXP COSIGNER: URGENCY: STATUS: COMPLETED TYPE OF VISIT: Appointment Check In Type of appointment: In-person appointment REASON FOR VISIT: check up ALLERGIES: FLUCONAZOLE (August 29, 2016) LISINOPRIL (Nov 30, 2018) Vital Signs: Blood Pressure: 171/78 (09/30/2023 11:21)recheck: 161/84 right: 161/75 Height: 73 in [185.4 cm] (08/22/2023 11:34) Weight: 220.4 lb [99.97 kg] (09/30/2023 11:21) Heart Rate: 73 (09/30/2023 11:21) Respiration: 14 (09/30/2023 11:21) Temp: 97.9 F [36.6 C] (09/30/2023 11:21) Pain: 0 (09/30/2023 11:21) PAIN SCREEN: Patient is not having significant pain that they wish to discuss with their provider today. MEDICATION Over the Counter/Herbal Medications: The patient states that they take some outside medications and/or herbals. COVID-19 Immunization: Refused Pfizer Monovalent COVID-19 vaccine Immunization: COVID-19 (PFIZER), MRNA, LNP-S, PF, LARISSA-SUCROSE, 30 MCG/0.3 ML (AGES 12+ YEARS) Refusal Reason: PATIENT DECISION Patient refuses all immunization(s) in the COVID-19 group Date Documented: 09/30/23 11:19 Depression Screening: Perform PHQ-2 A PHQ-2 screen was performed. The score was 0 which is a negative screen for depression. Over the past two weeks, how often have you been bothered by the following problems? 1. Little interest or pleasure in doing things Not at all 2. Feeling down, depressed, or hopeless Not at all Alcohol Use Screen (AUDIT-C): Alcohol Screen: SCREEN FOR ALCOHOL (AUDIT-C) An alcohol screening test (AUDIT-C) was negative (score=4). 1. How often did you have a drink containing alcohol in the past year? Consider a drink to be a 12 ounce can or bottle of regular beer, 8 ounces of malt liquor, a 5 ounce glass of table wine, or a 1.5 ounce shot of liquor (like scotch, gin, or vodka). Four or more times a week 2. How many drinks containing alcohol did you have on a typical day when you were drinking in the past year? One or two drinks 3. How often did you have six or more drinks on one occasion in the past year? Never Entry of Outside Tests/Reports: /es/ BRITTNEY SMALLS LPN Signed: 09/30/2023 11:25 BRITTNEY SMALLS [facility]
--- OUTSIDE RECORDS SUMMARY | 2023-10-08 05:39 | XMS_ITS | Clinical Summary ---
Author Organization [facility] Address [address] [place] [address] Care Team Providers Care Medical Coding Instructor Name Role Phone Pcp, No Primary Care Provider Unavailabl e Allergies Active Allergy Reactions Criticality Noted Date Comments Fluconazole 03/30/2018 Lisinopril Anaphylaxis,Angioedema High 11/30/2018 Medications Medication Sig Dispensed Refills Start Date End Date Status dasatinib (Sprycel) 50 MG chemo tablet Take 50 mg by mouth 1 (one) time each day. 0 09/19/2017 Active Social History Tobacco Use Types Packs/Day Years Used Date Smoking Tobacco: Never Smokeless Tobacco: Never Tobacco Cessation:Counseling Given: Not Answered Alcohol Use Standard Drinks/Week Comments Not Currently 0 (1 standard drink = 0.6 oz pur e alcohol) [facility] Housing Answer Date Recorded Living Situation Not on file 11/28/2022 Housing Problems Not on file 11/28/2022 [facility] Safety Answer Date Recorded Threatened Not on file 11/28/2022 Insulted Not on file 11/28/2022 Physically Hurt Not on file 11/28/2022 Scream Not on file 11/28/2022 Sex and Gender Information Value Date Recorded Sex Assigned at Not on file Gender Identity Not on file Sexual Orientation Not on file Last Filed Vital Signs Vital Sign Reading Time Taken Comments Blood Pressure 112/82 07/17/2022 11:00 PM EDT Pulse 88 07/17/2022 11:00 PM EDT Temperature 38.1 ??C (100.6 ??F) 07/17/2022 6:47 PM E DT Respiratory Rate 20 07/17/2022 9:00 PM EDT Oxygen Saturation 97% 07/17/2022 11:00 PM EDT Inhaled Oxygen Concentration - - Weight 98.2 kg (216 lb 7.9 oz) 07/17/2022 6:47 P M EDT Height 188 cm (6' 2) 07/17/2022 6:47 PM EDT Body Mass Index 27.8 07/17/2022 6:47 PM EDT Plan of Treatment Health Maintenance Due Date Last Done Comments Diabetes: Hemoglobin A1C 1940 Lipid Panel 1940 Annual Physical 10/07/1942 COVID-19 Vaccine (#1) 1944 Diabetes: Retinopathy Screening 1949 DTaP/Tdap/Td Vaccines (1 - Tdap) 1958 Zoster Vaccines (1 of 2) 1958 Respiratory Syncytial Virus (RSV) 60 years and older and/or patients (1 - 1-dose 60+ series) 1999 Pneumococcal Vaccine: 65+ Years (2 of 2 - PPSV23 or PCV20) 03/22/2016 01/26/2016 Diabetes: Urine Protein Screening 07/18/2023 07/17/2022 Influenza Vaccine (Season Ended) 2023 03/21/2022, 03/10/2018, 01/26/2016 Hepatitis B Vaccines Completed 01/20/1991, 07/27/1990, 06/22/1990 HPV Vaccines Aged Out No longer eligi ble based on patient's age to complete this topic Hepatitis A Vaccines Aged Out No long er eligible based on patient's age to complete this topic Meningococcal Vaccine Aged Out No carmina basil eligible based on patient's age to complete this topic Respiratory Syncytial Virus (RSV) <20 months Aged Out No longer eligible b ased on patient's age to complete this topic Care Teams Medical Coding Instructor Relationship Specialty Start Date End Date Pcp, No PCP - General 07/17/22
== END 2023-10-08 06:14 | disposition home or self-care (01) ==
PROVIDERS: Emergency Provider Family Medicine
DX: K91.840 Postprocedural hemorrhage of a digestive system organ or structure following a digestive system procedure (principal)
CPT/HCPCS: 36415; 85025; 99282; 99283